=== PATIENT | female | born 1935 | race American Indian/Alaskan Native ===

== ENCOUNTER 2018-03-13 18:49 | Inpatient (IN) | payer MEDICARE, OTHER ==
--- NOTE | 2018-03-13 18:55 | ED PDOC ---
Arrival/HPI - General Chief Complaint: Altered Mental Status Time Seen by Provider: 03/13/18 18:51 Historian: Caregiver, EMS - Critical Care Critical Care Minutes: 60 minutes - History of Present Illness Narrative History of Present Illness (Text): 82 year old male presents to the emergency department after being found to be weak in the upper extremities, difficulty speaking clearly, and right sided facial droop. Patient was found by home health aide at around 6 pm when she arrived on shift According to EMS, the patient with facial droop and weakness. When patient arrived to the emergency department she was found to have weakness in both upper extremities. Her blood sugar was normal in the emergency department. It is unknown when the patient twas found at baseline. She admits to having a non-productive cough and generalized myalgias for the past 24 hours with associated malaise. A more complete HPI was unable to be obtained due to the patient's clinical condition PCP: Dr. [phone] Time/Duration: 1-3 hours Symptom Onset: Sudden Symptom Course: Unchanged Activities at Onset: Rest Context: Home Past Medical History - Provider Review Nursing Documentation Reviewed: Yes RAJNI Report Viewed: No - Travel History Have you recently traveled outside [place] w/in the past 3 mons?: No Family/Social History - Physician Review Nursing Documentation Reviewed: Yes Family/Social History: No Known Family HX Allergies/Home Meds Allergies/Adverse Reactions: Allergies No Known Allergies Allergy (Unverified 03/13/18 18:52) Home Medications: Home Meds Medication Instructions Recorded Confirmed Aspirin [Aspirin EC] 81 mg PO DAILY 03/13/18 03/13/18 Cinacalcet [Sensipar] 30 mg PO DAILY 03/13/18 03/13/18 Clopidogrel [Plavix] 75 mg PO DAILY 03/13/18 03/13/18 GlipiZIDE [Glucotrol] 5 mg PO DAILY 03/13/18 03/13/18 NIFEdipine ER [Nifedipine ER] 60 mg PO DAILY 03/13/18 03/13/18 RX: Cyproheptadine HCl 4 mg PO BID 03/13/18 03/13/18 Tramadol HCl [Ultram] 50 mg PO DAILY 03/13/18 03/13/18 Review of Systems - Review of Systems Systems not reviewed;Unavailable: Acuity of Condition Neurological: Focal Weakness (Upper extremity weakness), Facial Droop (Right sided facial droop), Other (Difficulty speaking clearly. ) Physical Exam Vital Signs Reviewed: Yes Temperature: Febrile Blood Pressure: Normal Pulse: Tachycardic Respiratory Rate: Normal Appearance: Positive for: Well-Appearing, Non-Toxic, Comfortable Pain Distress: None Mental Status: Positive for: Alert and Oriented X 3 - Systems Exam Head: Present: Atraumatic, Normocephalic Pupils: Present: PERRL Extroacular Muscles: Present: EOMI Conjunctiva: Present: Normal Mouth: Present: Moist Mucous Membranes Neck: Present: Normal Range of Motion Respiratory/Chest: Present: Clear to Auscultation, Good Air Exchange. No: Respiratory Distress, Accessory Muscle Use Cardiovascular: Present: Regular Rate and Rhythm, Normal S1, S2. No: Murmurs Abdomen: Present: Normal Bowel Sounds. No: Tenderness, Distention, Peritoneal Signs Back: Present: Normal Inspection Upper Extremity: Present: Normal Inspection, Neurovascularly Intact, Other (Right upper extremity 2/5 . Left upper extremity 3/5). No: Cyanosis, Edema Lower Extremity: Present: Normal Inspection, Neurovascularly Intact, Other (Bilateral lower extremities 5/5. ). No: Edema Neurological: Present: CN II-XII Intact, Motor Func Grossly Intact (Right upper extremity 2/5 . Left upper extremity 3/5. Bilateral lower extremities 5/5. ), Other (Right sided facial droop). No: Speech Normal (slightly dysarthric speech) Skin: Present: Warm, Dry, Normal Color. No: Rashes Psychiatric: Present: Alert, Oriented x 3, Normal Insight, Normal Concentration Medical Decision Making ED Course and Treatment: Impression: An 82 year old female presents to the emergency department for further evaluation after ebing found to have difficulty speaking clearly, upper extremity weakness, and facial droop by her home health aide. NIHSS: 7 Differential Diagnosis included but are not limited to: CVA/ TIA UTI Sepsis PNA Plan: --EKG --Head CT --CTA Head and Neck --Chest X-ray --Urinalysis --Blood Culture --Tylenol --IV Fluids --Neurology Consult -- Reassess and disposition Prior Visits: Notes and results from previous visits were reviewed. Patient was last seen in the emergency department on Progress Notes: 03/13/18 18:51: Code rashawn called. 03/13/18 19:18: CT negative for intracranial hemorrhage. Page placed to Dr. Olivarez (Neurologist alumni relations coordinator). 03/13/18 19:26: Case discussed with Dr. Olivarez who states that patient is NOT a candidate for tPA due to unknown time when last found to be at baseline. She requests the patient get a CTA. Temperature noted to be 101.9F. Attempt to establish vascular access. 03/13/18 22:06 Vascular access obtained via EJ which seems to be positional. Discussed case with Dr. Herrera Lyles(house staff) who accepts patient onto hospitalist service. Endorsed case to surgery resident for central line who will coordinate care with the medical team. 03/13/18 22:[address] Stock(PCP) with answering account service associate given demongraphic details and will call back. - Lab Interpretations Lab Results: 03/13/18 21:17 03/13/18 21:17 Lab Results 03/13/18 21:17: pO2 61 H, VBG pH 7.40, VBG pCO2 58.0, VBG HCO3 35.9 H, VBG Total CO2 37.7 H, VBG O2 Sat (Calc) 94.6 H, VBG Base Excess 9.0 H, VBG Potassium 4.0, Sodium 135.0, Chloride 95.0 L, Glucose 80, Lactate 0.7, FiO2 21.0, Venous Blood Potassium 4.0 03/13/18 21:17: Sodium 135, Chloride 92 L, Potassium 4.2, Carbon Dioxide 35 H, Anion Gap 12, BUN 23 H, Creatinine 3.7 H, Est GFR ( Amer) 14, Est GFR (Non-Af Amer) 12, Random Glucose 87, Calcium 8.8, Total Bilirubin 0.7, AST 34, ALT 28, Alkaline Phosphatase 79, Troponin I 0.08, NT-Pro-B Natriuret Pep 6720 H, Total Protein 9.4 H, Albumin 4.3, Globulin 5.2, Albumin/Globulin Ratio 0.8 L 03/13/18 21:17: PT 12.6 H, INR 1.10, APTT 28.4 03/13/18 21:17: WBC 9.7, RBC 3.22 L, Hgb 9.7 L, Hct 30.7 L, MCV 95.3, MCH 30.1, MCHC 31.6, RDW 16.5 H, Plt Count 261, MPV 9.9, Gran % 72.4 H, Lymph % (Auto) 13.3 L, [place] % (Auto) 12.6 H, Eos % (Auto) 1.5, Baso % (Auto) 0.2, Gran # 7.03 H , Lymph # (Auto) 1.3, [place] # (Auto) 1.2 H, Eos # (Auto) 0.2, Baso # (Auto) 0.02 I have reviewed the lab results: Yes - RAD Interpretation Radiology Orders: 03/13/18 18:53 HEAD W/O (CODE STROKE) [CT] Stat CHEST PORTABLE [RAD] Stat - EKG Interpretation EKG Interpretation (Text): EKG: Ordered, reviewed, and independently interpreted the EKG. Rate : 90 BPM Rhythm : NSR Interpretation : 1st degree AV block. PVCs within AVR and v1- v3. Interpreted by ED Physician: Yes Type: 12 lead EKG - Medication Orders Current Medication Orders: Sodium Chloride (Sodium Chloride 0.9%) 1,000 mls @ 100 mls/hr IV .Q10H [facility] NIHSS Scale (Nicholls) Time Performed: 18:54 - How Severe is the Stoke Baseline Level of Consciousness: 0=Alert LOC to Questions: 1=One correct LOC to commands: 0=Obeys both correctly Best Gaze: 0=Normal Visual: 0=No visual loss Facial: 1=Minor asymmetry Motor Arm - Left: 1=Drift noted before 10 sec Motor Arm - Right: 2=Falls before 10 sec Motor Leg - Left: 0=No drift Motor Leg - Right: 0=No drift Limb Ataxia: 0=Absent Sensory: 0=Normal Best Language: 1=Mild to moderate aphasia Dysarthia: 1=Mild to moderate slurring Extinction & Inattention (Neglect): 0=Normal, no object Score: 7 Risk Level: Mod Stroke Risk rTPA Inclusion/Exclusion - Refusal of Treatment Patient Refused Treatment: No - Inclusion Criteria for Altepase Patient is 18 years or Older: Yes The Clinical Diagnosis of Ischemic Stroke That is Causing a Potentially Disabling Neurological Deficit: No Time of Onset is Well Established to be Less Than 270 Minute Before Treatment Would Begin: Yes Risk/Benefit Discussed With Patient/Family Member Present: Yes - Exclusion Criteria for Altepase Uncontrolled Hypertension at Time of Treatment (Systolic BP above 185 or Diastolic BP above 110 mmHg): No - Warning to TPA With Conditions Following Conditions Weighed Against Anticipated Benefit: Yes Condition: Age Greater Than 75 years Additional Condition (For 3-4.5 Hour Window): Age Greater Than 80 - Scribe Statement The provider has reviewed the documentation as recorded by the Scribe Yocasta Reyes Provider Scribe Attestation: All medical record entries made by the Scribe were at my direction and personally dictated by me. I have reviewed the chart and agree that the record accurately reflects my personal performance of the history, physical exam, medical decision making, and the department course for this patient. I have also personally directed, reviewed, and agree with the discharge instructions and disposition. Disposition/Present on Arrival - Present on Arrival Any Indicators Present on Arrival: No History of DVT/PE: No History of Uncontrolled Diabetes: No Urinary Catheter: No History of Decub. Ulcer: No - Disposition Have Diagnosis and Disposition been Completed?: Yes Diagnosis: Anemia, Upper extremity weakness, Dialysis patient Disposition: HOSPITALIZED Disposition Time: 22:00 Patient Plan: Admission Patient Problems: Current Active Problems Problem Status Onset Anemia Acute Dialysis patient Acute Upper extremity weakness Acute Condition: GUARDED
[2018-03-13] MEDS ORDERED: Sodium Chloride 0.9% 1,000 ML IV SCH (19:00)
[2018-03-13 19:15] VITALS: BMI 29.4
[2018-03-13 21:22] LABS: BASO # 0.02 K/mm3 (0.0-2.0); BASO % 0.2 % (0.0-3.0); EOS # 0.2 (0.0-0.7); EOS % 1.5 % (1.5-5.0); GRAN # 7.03 (1.4-6.5); GRAN % 72.4 % (50.0-68.0); HEMOGLOBIN 9.7 g/dL (12.0-16.0); LYMPH # 1.3 (1.2-3.4); LYMPH % 13.3 % (22.0-35.0); MEAN CELL VOLUME 95.3 fl (80.0-105.0); MEAN CORPUSCULAR HEMOGLOBIN 30.1 pg (25.0-35.0); MEAN CORPUSCULAR HGB CONC 31.6 g/dl (31.0-37.0); MEAN PLATELET VOLUME 9.9 fl (7.0-11.0); MONO # 1.2 (0.1-0.6); MONO % 12.6 % (1.0-6.0); RBC 3.22 10^6/uL (3.5-6.1); RED CELL DISTRIBUTION WIDTH 16.5 % (11.5-14.5); VENOUS BLOOD GAS PO2 61 mm/Hg (30-55); WHITE BLOOD COUNT 9.7 10^3/uL (4.5-11.0)
[2018-03-13 21:31] LABS: INR 1.1; PARTIAL THROMBOPLASTIN TIME 28.4 Seconds (25.1-36.5); PROTHROMBIN TIME 12.6 SECONDS (9.4-12.5)
[2018-03-13 21:32] LABS: ALB/GLOB RATIO 0.8 (1.1-1.8); ALBUMIN 4.3 g/dL (3.0-4.8); CALCIUM 8.8 mg/dL (8.4-10.5)
[2018-03-13 21:44] LABS: TROPONIN I 0.08 ng/mL
[2018-03-13] MEDS ORDERED: Dextrose 50% SYRINGE Inj (50 ml) IV PRN (23:40)
--- NOTE | 2018-03-14 03:17 | CP.PCM.HP ---
History of Present Illness - History of Present Illness History of Present Illness: Nimco Shah, PGY-1, Medicine H&P for Herrera Dickson: CC: Weakness in upper extremity, difficulty speaking, R sided facial droop Pt is an 82 yo F with pmhx of ESRD (HD on ), DM, GERD, HLD, HTN, prior CVA/TIA who presents for weakness in upper extremity, difficulty speaking, R sided facial droop after her HD session. Pt states that this is often the case with her after she has her dialysis sessions, but her home health aid noticed that she began having some weakness, difficulty speaking and R sided facial droop at around 6pm. Pts last known normal was not known and was therefore outside of TPA window. She states that she remembers her home health aide mentioning to her that she was having some weakness in the R upper extremity but she denies noting any weakness. Pt at this time states that she feels better than she did after dialysis and feels that she is stronger. Family was present around the pt and they also noted that the pt is improving and has returned to her baseline prior to ED visit. Pt also admits to a sore throat that started yesterday, but denies sick contacts. At this time she denies fevers, chills, he adache, lightheadedness, dizziness, weakness, chest pain, SOB, palpitations, leg swelling, abd pain, n/v, c/d, numbness, tingling, or dysuria. She admits to having a dry cough and a sore throat. Pmhx: ESRD (HD on ), DM, GERD, HLD, HTN, prior CVA/TIA Pshx: Marly, A/V fistula on R arm All: NKDA Social: Denies any tobacco hx, denies etoh or illicit drug use Fam: Daughter: Breast ca, Daughter: SLE PMD: Dr. Gilbert Pharm: [address] in [place] Present on Admission - Present on Admission Any Indicators Present on Admission: No Review of Systems - Review of Systems Review of Systems: 12 point ROS reviewed and negative except for noted above. Past Patient History - Past Social History Smoking Status: Unknown If Ever Smoked - CARDIAC Hx Hypertension: Yes - PULMONARY Hx Respiratory Disorders: No - RENAL Hx Chronic Kidney Disease: No - ENDOCRINE/METABOLIC Hx Endocrine Disorders: No - HEMATOLOGICAL/ONCOLOGICAL Hx Blood Disorders: No - PSYCHIATRIC Hx Substance Use: No - ANESTHESIA Hx Anesthesia: No Meds Allergies/Adverse Reactions: Allergies Allergy/AdvReac Type Severity Reaction Status Date / Time No Known Allergies Allergy Unverified 03/13/18 18:52 Physical Exam - Constitutional Appears: Non-toxic, No Acute Distress - Head Exam Head Exam: ATRAUMATIC, NORMAL INSPECTION, NORMOCEPHALIC - Eye Exam Eye Exam: EOMI, Normal appearance, PERRL - Neck Exam Neck exam: Negative for: Lymphadenopathy, Meningismus (negative for nuchal rigidity, negative for kernig and brudzinski signs.) - Respiratory Exam Respiratory Exam: Decreased Breath Sounds, NORMAL BREATHING PATTERN. absent: Accessory Muscle Use, Rales, Rhonchi, Wheezes, Respiratory Distress, Stridor - Cardiovascular Exam Cardiovascular Exam: RRR, +S1, +S2, Systolic Murmur ([place] best at R sternal border, crescendo-decrescendo). absent: Gallop, Rubs - GI/Abdominal Exam GI & Abdominal Exam: Normal Bowel Sounds, Soft. absent: Distended, Firm, Guarding, Tenderness - Extremities Exam Extremities exam: Positive for: normal capillary refill, normal inspection, pedal pulses present. Negative for: pedal edema, tenderness - Back Exam Back exam: NORMAL INSPECTION. absent: CVA tenderness (L), CVA tenderness (R) - Neurological Exam Neurological exam: Alert, CN II-XII Intact, Oriented x3 Additional comments: Pt has equal muscle strength 5/5 b/l in both upper and lower extremities. Pt has no noted dysarthria, and no facial asymmetry. No extinction noted on exam. Pt has no focal neurological deficit at this time. - Psychiatric Exam Psychiatric exam: Normal Affect, Normal Mood - Skin Skin Exam: Dry, Normal Color, Warm Results - Vital Signs Recent Vital Signs: Last Vital Signs Temp 101.4 F H 03/13/18 21:45 Pulse 77 03/14/18 00:33 Resp 20 03/14/18 00:33 BP 125/60 03/14/18 00:33 Pulse Ox 96 03/14/18 00:33 - Labs Result Diagrams: 03/14/18 06:30 03/14/18 06:30 Labs: Laboratory Results - last 24 hr 03/13/18 03/13/18 03/13/18 21:17 21:17 21:17 WBC 9.7 RBC 3.22 L Hgb 9.7 L Hct 30.7 L MCV 95.3 MCH 30.1 MCHC 31.6 RDW 16.5 H Plt Count 261 MPV 9.9 Gran % 72.4 H Lymph % (Auto) 13.3 L [place] % (Auto) 12.6 H Eos % (Auto) 1.5 Baso % (Auto) 0.2 Gran # 7.03 H Lymph # (Auto) 1.3 [place] # (Auto) 1.2 H Eos # (Auto) 0.2 Baso # (Auto) 0.02 PT 12.6 H INR 1.10 APTT 28.4 pO2 VBG pH VBG pCO2 VBG HCO3 VBG Total CO2 VBG O2 Sat (Calc) VBG Base Excess VBG Potassium Sodium 135 Chloride 92 L Glucose Lactate FiO2 Potassium 4.2 Carbon Dioxide 35 H Anion Gap 12 BUN 23 H Creatinine 3.7 H Est GFR ( Amer) 14 Est GFR (Non-Af Amer) 12 Random Glucose 87 Calcium 8.8 Total Bilirubin 0.7 AST 34 ALT 28 Alkaline Phosphatase 79 Troponin I 0.08 NT-Pro-B Natriuret Pep 6720 H Total Protein 9.4 H Albumin 4.3 Globulin 5.2 Albumin/Globulin Ratio 0.8 L Venous Blood Potassium 03/13/18 21:17 WBC RBC Hgb Hct MCV MCH MCHC RDW Plt Count MPV Gran % Lymph % (Auto) [place] % (Auto) Eos % (Auto) Baso % (Auto) Gran # Lymph # (Auto) [place] # (Auto) Eos # (Auto) Baso # (Auto) PT INR APTT pO2 61 H VBG pH 7.40 VBG pCO2 58.0 VBG HCO3 35.9 H VBG Total CO2 37.7 H VBG O2 Sat (Calc) 94.6 H VBG Base Excess 9.0 H VBG Potassium 4.0 Sodium 135.0 Chloride 95.0 L Glucose 80 Lactate 0.7 FiO2 21.0 Potassium Carbon Dioxide Anion Gap BUN Creatinine Est GFR ( Amer) Est GFR (Non-Af Amer) Random Glucose Calcium Total Bilirubin AST ALT Alkaline Phosphatase Troponin I NT-Pro-B Natriuret Pep Total Protein Albumin Globulin Albumin/Globulin Ratio Venous Blood Potassium 4.0 Assessment & Plan - Assessment and Plan (Free Text) Assessment: Pt is an 82 yo F with pmhx of ESRD (HD on ), DM, GERD, HLD, HTN, prior CVA who presents for weakness in upper extremity, difficulty speaking, R sided facial droop after her HD session. Pt has no focal neurological deficits, dysarthria on exam and pt has returned to baseline per family. CT head in the ED showed chronic but unchanged ischemia. Pt was also noted to have fever on vitals. Plan: 1. SIRS: - Pt had a fever and elevated HR initially of 90 - Fluids - NS @ 60cc/hr - Vanc - Renally dosed at 15mg/kg. - Rocephin - Blood, urine and sputum cxs - ID consulted 2. TIA vs Stroke: - Pt has returned to baseline per family, and no focal neurologic deficits r emaining on exam - CT head was negative for ischemic or hemorrhagic changes - Lipitor - ASA - lipid profile - Echo - Carotid - Hold Home BP medications - Neurology on board: Dr. Olivarez 3. Hx of DM: - ISS - HbgA1c 4. Hx of ESRD: - Nephrology on board - Dr. Barrett - Dialysis - (last session was today) 5. Hx of HTN: - Hold home BP meds due to stroke vs TIA 6. PPx: - GI: Protonix - DVT: Heparin Pts family would like to be informed before any procedures are done on the pt: - [place]: Case seen and discussed with Herrera Dickson, PGY-1
[2018-03-14] MEDS ORDERED: Sodium Chloride 0.9% 1,000 ML IV SCH (03:30)
[2018-03-14] MEDS: Pantoprazole 40 mg EC Tab PO SCH (05:52)
[2018-03-14 07:22] LABS: BASO # 0.02 K/mm3 (0.0-2.0); BASO % 0.2 % (0.0-3.0); EOS # 0.2 (0.0-0.7); EOS % 1.9 % (1.5-5.0); GRAN # 5.81 (1.4-6.5); GRAN % 69.5 % (50.0-68.0); HEMOGLOBIN 9.1 g/dL (12.0-16.0); LYMPH # 1.3 (1.2-3.4); MEAN CELL VOLUME 97.1 fl (80.0-105.0); MEAN CORPUSCULAR HEMOGLOBIN 29.4 pg (25.0-35.0); MEAN CORPUSCULAR HGB CONC 30.3 g/dl (31.0-37.0); MEAN PLATELET VOLUME 9.6 fl (7.0-11.0); MONO % 12.4 % (1.0-6.0); RBC 3.09 10^6/uL (3.5-6.1); RED CELL DISTRIBUTION WIDTH 16.8 % (11.5-14.5); WHITE BLOOD COUNT 8.4 10^3/uL (4.5-11.0)
--- NOTE | 2018-03-14 07:24 | CP.PCM.CON ---
<Mariajose Vásquez - Last Filed: 03/14/18 13:09> History of Present Illness - History of Present Illness History of Present Illness: PGY-[address] Gilmore ID consult: Fever Ms Solorio, 82F, with PMHx CVA, HTN/HLD, DM, ESRD (HD MWF) C/O weakness in upper extremity, difficulty speaking, R sided facial droop after her HD session. After dialysis on Sunday, pt's home health aid noticed that pt began having R-sided weakness, difficulty speaking and R sided facial droop. Per family, all neurological symptoms resolved and pt is back to baseline prior to ED visit. Code stroke was called. NIHSS [address] head was negative for intracranial hemorrhage. Per neurology, pt is not a candidate for tPA due to unknown time when last found to be at baseline. Temperature noted to be 101.9F. Pt started to feel sore throat with a dry cough after waking up yesterday in the morning. Robitussin help cough but did not help sore throat. Denies sick contacts or recent travels. No animal contact. No recent antibiotic use. Last antibiotic use was for a cough before thanksgi which resolved. ROS - (+) chills (+) dry cough. Pt produce urine at baseline. No change in urinary frequency. Denies fevers, body ache, headache, lightheadedness, dizziness, weakness, chest pain, SOB, palpitations, leg swelling, abd pain, n/v, c/d, numbness, tingling, or dysuria. Pmhx: CVA/TIA HLD/HTN DM ESRD (Dialysis MWF) GERD Pshx: Marly, A/V fistula on R arm FH: Daughter: Breast ca, Daughter: SLE All: NKDA SH: Denies any tobacco hx, denies etoh or illicit drug use. She ambulates with cane/walker at home. Has home health aide Med: See VANESSA PMD: Dr. Gilbert Upon ED arrival, T 101.4, HR 102, BP 110-150, Sa97%RA CBC: WBC 9.7, Hb 9.7, Lactate 0.7 CMP: BUN 23/Cre 3.7 EKG: NSR 90. 1st degree AV block Head CT: Periventricular white matter oschemic changes, chronic. No hemorrhage CXR: No active disease Past Patient History - Past Social History Smoking Status: Unknown If Ever Smoked - CARDIAC Hx Hypertension: Yes - PULMONARY Hx Respiratory Disorders: No - NEUROLOGICAL Hx Neurological Disorder: Yes Hx Transient Ischemic Attacks (TIA): Yes - HEENT Hx HEENT Problems: No - RENAL Hx Chronic Kidney Disease: No - ENDOCRINE/METABOLIC Hx Endocrine Disorders: No - HEMATOLOGICAL/ONCOLOGICAL Hx Blood Disorders: No - INTEGUMENTARY Hx Dermatological Problems: No - MUSCULOSKELETAL/RHEUMATOLOGICAL Hx Musculoskeletal Disorders: Yes Hx Arthritis: Yes Hx Falls: No - GASTROINTESTINAL Hx Gastrointestinal Disorders: Yes Hx Gastroesophageal Reflux: Yes - GENITOURINARY/GYNECOLOGICAL Hx Genitourinary Disorders: No - PSYCHIATRIC Hx Substance Use: No - SURGICAL HISTORY Hx Surgeries: Yes Hx Cholecystectomy: Yes - ANESTHESIA Hx Anesthesia: No Meds Allergies/Adverse Reactions: Allergies Allergy/AdvReac Type Severity Reaction Status Date / Time No Known Allergies Allergy Unverified 03/13/18 18:52 - Medications Medications: Current Medications Aspirin (Ecotrin) 81 mg PO DAILY [facility] Atorvastatin Calcium (Lipitor) 40 mg PO DIN [facility] Dextrose (Dextrose 50% Inj) 0 ml IV STAT PRN; Protocol PRN Reason: Hypoglycemia Protocol Heparin Sodium (Porcine) (Heparin) 5,000 units SC Q12 [facility]; Protocol Dextrose (Dextrose 5% In Water 1000 Ml) 1,000 mls @ 0 mls/hr IV .Q0M PRN; Protocol PRN Reason: Hypoglycemia Protocol Ceftriaxone Sodium (Rocephin 1 Gram Ivpb) 1 gm in 100 mls @ 100 mls/hr IVPB DAILY [facility]; Protocol Vancomycin HCl (Vancomycin 1gm) 1 gm in 250 mls @ 167 mls/hr IVPB DAILY [facility]; Protocol Sodium Chloride (Sodium Chloride 0.9%) 1,000 mls @ 60 mls/hr IV .[id number] [facility] Last Admin: 03/14/18 05:49 Dose: 60 mls/hr Insulin Human Lispro (Humalog Med) 0 units SC ACHS [facility]; Protocol Nifedipine (Procardia Xl) 60 mg PO DAILY [facility] Pantoprazole Sodium (Protonix Ec Tab) 40 mg PO 0600 [facility] Last Admin: 03/14/18 05:52 Dose: 40 mg Physical Exam - Constitutional Appears: No Acute Distress - Head Exam Head Exam: ATRAUMATIC, NORMAL INSPECTION, NORMOCEPHALIC - Eye Exam Eye Exam: EOMI, Normal appearance, PERRL. absent: Scleral icterus Pupil Exam: NORMAL ACCOMODATION - ENT Exam ENT Exam: Mucous Membranes Moist Additional comments: mallampati 4. - Neck Exam Additional comments: supple - Respiratory Exam Respiratory Exam: Decreased Breath Sounds (b/l lung bases), Clear to Auscultation Bilateral, NORMAL BREATHING PATTERN. absent: Rales, Rhonchi, Wheezes - Cardiovascular Exam Cardiovascular Exam: REGULAR RHYTHM, +S1, +S2, Systolic Murmur - GI/Abdominal Exam GI & Abdominal Exam: Normal Bowel Sounds, Soft. absent: Distended, Firm, Guarding, Tenderness Additional comments: No suprapubic tenderness - Extremities Exam Extremities exam: Positive for: normal capillary refill, normal inspection, pedal pulses present. Negative for: calf tenderness, pedal edema - Back Exam Back exam: absent: CVA tenderness (L), CVA tenderness (R) - Neurological Exam Neurological exam: Alert, Oriented x3 - Psychiatric Exam Psychiatric exam: Normal Affect, Normal Mood - Skin Skin Exam: Dry, Warm Results - Vital Signs Recent Vital Signs: Last Vital Signs Temp 98.6 F 03/14/18 06:00 Pulse 74 03/14/18 06:00 Resp 18 03/14/18 06:00 BP 136/67 03/14/18 06:00 Pulse Ox 100 03/14/18 06:00 - Labs Result Diagrams: 03/14/18 06:30 03/14/18 06:30 Labs: Laboratory Results - last 24 hr 03/13/18 03/13/18 03/13/18 21:17 21:17 21:17 WBC 9.7 RBC 3.22 L Hgb 9.7 L Hct 30.7 L MCV 95.3 MCH 30.1 MCHC 31.6 RDW 16.5 H Plt Count 261 MPV 9.9 Gran % 72.4 H Lymph % (Auto) 13.3 L [place] % (Auto) 12.6 H Eos % (Auto) 1.5 Baso % (Auto) 0.2 Gran # 7.03 H Lymph # (Auto) 1.3 [place] # (Auto) 1.2 H Eos # (Auto) 0.2 Baso # (Auto) 0.02 PT 12.6 H INR 1.10 APTT 28.4 pO2 VBG pH VBG pCO2 VBG HCO3 VBG Total CO2 VBG O2 Sat (Calc) VBG Base Excess VBG Potassium Sodium 135 Chloride 92 L Glucose Lactate FiO2 Potassium 4.2 Carbon Dioxide 35 H Anion Gap 12 BUN 23 H Creatinine 3.7 H Est GFR ( Amer) 14 Est GFR (Non-Af Amer) 12 Random Glucose 87 Calcium 8.8 Total Bilirubin 0.7 AST 34 ALT 28 Alkaline Phosphatase 79 Troponin I 0.08 NT-Pro-B Natriuret Pep 6720 H Total Protein 9.4 H Albumin 4.3 Globulin 5.2 Albumin/Globulin Ratio 0.8 L Venous Blood Potassium 03/13/18 03/14/18 21:17 06:30 WBC 8.4 RBC 3.09 L Hgb 9.1 L Hct 30.0 L MCV 97.1 MCH 29.4 MCHC 30.3 L RDW 16.8 H Plt Count 241 MPV 9.6 Gran % 69.5 H Lymph % (Auto) 16.0 L [place] % (Auto) 12.4 H Eos % (Auto) 1.9 Baso % (Auto) 0.2 Gran # 5.81 Lymph # (Auto) 1.3 [place] # (Auto) 1.0 H Eos # (Auto) 0.2 Baso # (Auto) 0.02 PT INR APTT pO2 61 H VBG pH 7.40 VBG pCO2 58.0 VBG HCO3 35.9 H VBG Total CO2 37.7 H VBG O2 Sat (Calc) 94.6 H VBG Base Excess 9.0 H VBG Potassium 4.0 Sodium 135.0 Chloride 95.0 L Glucose 80 Lactate 0.7 FiO2 21.0 Potassium Carbon Dioxide Anion Gap BUN Creatinine Est GFR ( Amer) Est GFR (Non-Af Amer) Random Glucose Calcium Total Bilirubin AST ALT Alkaline Phosphatase Troponin I NT-Pro-B Natriuret Pep Total Protein Albumin Globulin Albumin/Globulin Ratio Venous Blood Potassium 4.0 Assessment & Plan - Assessment and Plan (Free Text) Plan: Ms Solorio, 82F, with PMHx CVA, HTN/HLD, DM, ESRD (HD MWF) C/O weakness in upper extremity, difficulty speaking, R sided facial droop after her HD session. Her temperature noted to be 101.9F and HR 102 with sore throat, dry cough x 1 day. A: Possible influenza due to high specificity from symptoms during flu endemic Sepsis (2/4) with possible flu infection questionable community acquired pneumonia, 2 points on curb-63 for age and ESRD P: - Oseltamivir renal dose: 30mg x 1. Then 30mg daily x 5 days. On dialysis day, give it after dialysis. - airborne precaution - cepacol lozenges PRN for sore throat, tylenol prn for fever - follow on CXR 2 view, procalcitonin, blood, sputum, urine culture - observe off antibiotics for now - Unlikely bacterial infection, no sputum, no leukopenia/leukocytosis, CXR negative for consolidaion Imaging/Lab - EKG: NSR 90. 1st degree AV block - Head CT: Periventricular white matter oschemic changes, chronic. No hemorrhage - CXR: No active disease - Flu screen negative. s/r/d/w Dr. Gilmore <Kris Gilmore S - Last Filed: 03/14/18 15:24> Meds - Medications Medications: Current Medications Aspirin (Ecotrin) 81 mg PO DAILY [facility] Last Admin: 03/14/18 10:30 Dose: 81 mg Atorvastatin Calcium (Lipitor) 40 mg PO DIN [facility] Cinacalcet (Sensipar) 30 mg PO DAILY [facility] Darbepoetin Chencho (Aranesp) 40 mcg IVP QWK [facility] Dextrose (Dextrose 50% Inj) 0 ml IV STAT PRN; Protocol PRN Reason: Hypoglycemia Protocol Heparin Sodium (Porcine) (Heparin) 5,000 units SC Q12 [facility]; Protocol Last Admin: 03/14/18 10:36 Dose: Not Given Heparin Sodium (Porcine) (Heparin) 2,000 units IVP MWF [facility]; Protocol Dextrose (Dextrose 5% In Water 1000 Ml) 1,000 mls @ 0 mls/hr IV .Q0M PRN; Protocol PRN Reason: Hypoglycemia Protocol Insulin Human Lispro (Humalog Med) 0 units SC ACHS [facility]; Protocol Last Admin: 03/14/18 12:57 Dose: Not Given Losartan Potassium (Cozaar) 25 mg PO QPM [facility] Nifedipine (Procardia Xl) 60 mg PO DAILY [facility] Oseltamivir Phosphate (Tamiflu Cap) 30 mg PO DAILY [facility]; Protocol Last Admin: 03/14/18 10:30 Dose: 30 mg Pantoprazole Sodium (Protonix Ec Tab) 40 mg PO 0600 [facility] Last Admin: 03/14/18 05:52 Dose: 40 mg Vitamin B Complex/Vit C/Folic Acid (Nephro-Geno) 1 tab PO 0800 [facility] Results - Vital Signs Recent Vital Signs: Last Vital Signs Temp 98 F 03/14/18 12:00 Pulse 73 03/14/18 14:00 Resp 20 03/14/18 12:00 BP 126/62 03/14/18 14:00 Pulse Ox 100 03/14/18 06:00 - Labs Result Diagrams: 03/14/18 06:30 03/14/18 06:30 Labs: Laboratory Results - last 24 hr 03/13/18 03/13/18 03/13/18 21:10 21:17 21:17 WBC 9.7 RBC 3.22 L Hgb 9.7 L Hct 30.7 L MCV 95.3 MCH 30.1 MCHC 31.6 RDW 16.5 H Plt Count 261 MPV 9.9 Gran % 72.4 H Lymph % (Auto) 13.3 L [place] % (Auto) 12.6 H Eos % (Auto) 1.5 Baso % (Auto) 0.2 Gran # 7.03 H Lymph # (Auto) 1.3 [place] # (Auto) 1.2 H Eos # (Auto) 0.2 Baso # (Auto) 0.02 PT 12.6 H INR 1.10 APTT 28.4 pO2 VBG pH VBG pCO2 VBG HCO3 VBG Total CO2 VBG O2 Sat (Calc) VBG Base Excess VBG Potassium Sodium Chloride Glucose Lactate FiO2 Potassium Carbon Dioxide Anion Gap BUN Creatinine Est GFR ( Amer) Est GFR (Non-Af Amer) POC Glucose (mg/dL) Random Glucose Hemoglobin A1c Calcium Total Bilirubin AST ALT Alkaline Phosphatase Troponin I NT-Pro-B Natriuret Pep Total Protein Albumin Globulin Albumin/Globulin Ratio Triglycerides Cholesterol LDL Cholesterol Direct HDL Cholesterol Procalcitonin 0.51 H Venous Blood Potassium Influenza Typ A,B (EIA) Blood Type Antibody Screen Antibody Identification Antigen Identification BBK History Checked 03/13/18 03/13/18 03/14/18 21:17 21:17 06:25 WBC RBC Hgb Hct MCV MCH MCHC RDW Plt Count MPV Gran % Lymph % (Auto) [place] % (Auto) Eos % (Auto) Baso % (Auto) Gran # Lymph # (Auto) [place] # (Auto) Eos # (Auto) Baso # (Auto) PT INR APTT pO2 61 H VBG pH 7.40 VBG pCO2 58.0 VBG HCO3 35.9 H VBG Total CO2 37.7 H VBG O2 Sat (Calc) 94.6 H VBG Base Excess 9.0 H VBG Potassium 4.0 Sodium 135 135.0 Chloride 92 L 95.0 L Glucose 80 Lactate 0.7 FiO2 21.0 Potassium 4.2 Carbon Dioxide 35 H Anion Gap 12 BUN 23 H Creatinine 3.7 H Est GFR ( Amer) 14 Est GFR (Non-Af Amer) 12 POC Glucose (mg/dL) Random Glucose 87 Hemoglobin A1c Calcium 8.8 Total Bilirubin 0.7 AST 34 ALT 28 Alkaline Phosphatase 79 Troponin I 0.08 NT-Pro-B Natriuret Pep 6720 H Total Protein 9.4 H Albumin 4.3 Globulin 5.2 Albumin/Globulin Ratio 0.8 L Triglycerides Cholesterol LDL Cholesterol Direct HDL Cholesterol Procalcitonin Venous Blood Potassium 4.0 Influenza Typ A,B (EIA) Blood Type B POSITIVE Antibody Screen Positive Antibody Identification Anti K Antigen Identification K Antigen - NEGATIVE BBK History Checked No verified bt 03/14/18 03/14/18 03/14/18 06:30 06:30 06:30 WBC 8.4 RBC 3.09 L Hgb 9.1 L Hct 30.0 L MCV 97.1 MCH 29.4 MCHC 30.3 L RDW 16.8 H Plt Count 241 MPV 9.6 Gran % 69.5 H Lymph % (Auto) 16.0 L [place] % (Auto) 12.4 H Eos % (Auto) 1.9 Baso % (Auto) 0.2 Gran # 5.81 Lymph # (Auto) 1.3 [place] # (Auto) 1.0 H Eos # (Auto) 0.2 Baso # (Auto) 0.02 PT INR APTT pO2 VBG pH VBG pCO2 VBG HCO3 VBG Total CO2 VBG O2 Sat (Calc) VBG Base Excess VBG Potassium Sodium 133 Chloride 94 L Glucose Lactate FiO2 Potassium 4.3 Carbon Dioxide 32 Anion Gap 13 BUN 29 H Creatinine 4.5 H Est GFR ( Amer) 11 Est GFR (Non-Af Amer) 9 POC Glucose (mg/dL) Random Glucose 71 Hemoglobin A1c 5.1 Calcium 8.4 Total Bilirubin 0.7 AST 35 ALT 22 Alkaline Phosphatase 71 Troponin I NT-Pro-B Natriuret Pep Total Protein 8.7 H Albumin 3.9 Globulin 4.8 Albumin/Globulin Ratio 0.8 L Triglycerides 90 Cholesterol 246 H LDL Cholesterol Direct 158 H HDL Cholesterol 34 Procalcitonin Venous Blood Potassium Influenza Typ A,B (EIA) Blood Type Antibody Screen Antibody Identification Antigen Identification BBK History Checked 03/14/18 03/14/18 03/14/18 09:23 09:31 10:17 WBC RBC Hgb Hct MCV MCH MCHC RDW Plt Count MPV Gran % Lymph % (Auto) [place] % (Auto) Eos % (Auto) Baso % (Auto) Gran # Lymph # (Auto) [place] # (Auto) Eos # (Auto) Baso # (Auto) PT INR APTT pO2 VBG pH VBG pCO2 VBG HCO3 VBG Total CO2 VBG O2 Sat (Calc) VBG Base Excess VBG Potassium Sodium Chloride Glucose Lactate FiO2 Potassium Carbon Dioxide Anion Gap BUN Creatinine Est GFR ( Amer) Est GFR (Non-Af Amer) POC Glucose (mg/dL) 55 L 98 Random Glucose Hemoglobin A1c Calcium Total Bilirubin AST ALT Alkaline Phosphatase Troponin I NT-Pro-B Natriuret Pep Total Protein Albumin Globulin Albumin/Globulin Ratio Triglycerides Cholesterol LDL Cholesterol Direct HDL Cholesterol Procalcitonin Venous Blood Potassium Influenza Typ A,B (EIA) Negative for flu a/b Blood Type Antibody Screen Antibody Identification Antigen Identification BBK History Checked Assessment & Plan - Assessment and Plan (Free Text) Plan: Infectious diseases Attending Physician Attestation Patient seen and examined, discussed with program medical director. I have reviewed the patient's history of present illness, past medical, social, personal and family histories, pertinent physical exam findings, course so far in this hospital admission, pertinent laboratory and imaging results. I agree with the above findings, assessment and plan. In addition, consider sepsis due to systemic viral illness like Influenza. We have started Tamiflu. Will get CXR PA-L, PCT, cultures and give further recommendations based on results of these tests.
[2018-03-14 07:38] LABS: ALB/GLOB RATIO 0.8 (1.1-1.8); ALBUMIN 3.9 g/dL (3.0-4.8); CALCIUM 8.4 mg/dL (8.4-10.5)
--- NOTE | 2018-03-14 08:19 | CT ---
Date of service: 03/13/2018 PROCEDURE: CT HEAD WITHOUT CONTRAST. HISTORY: Code Stroke COMPARISON: None available. TECHNIQUE: Axial computed tomography images were obtained through the head/brain without intravenous contrast. Radiation dose: Total exam DLP = 1172.69 mGy-cm. This CT exam was performed using one or more of the following dose reduction techniques: Automated exposure control, adjustment of the mA and/or kV according to patient size, and/or use of iterative reconstruction technique. FINDINGS: HEMORRHAGE: No intracranial hemorrhage. BRAIN: No mass effect or edema. Atrophy and extensive chronic periventricular white matter ischemic disease. VENTRICLES: Unremarkable. No hydrocephalus. CALVARIUM: Unremarkable. PARANASAL SINUSES: Unremarkable as visualized. No significant inflammatory changes. MASTOID AIR CELLS: Unremarkable as visualized. No inflammatory changes. OTHER FINDINGS: None. IMPRESSION: No acute hemorrhage.
--- NOTE | 2018-03-14 09:27 | RAD ---
Date of service: 03/13/2018 HISTORY: Code Stroke COMPARISON: No prior. FINDINGS: LUNGS: Linear atelectasis at the right lung base PLEURA: No significant pleural effusion identified, no pneumothorax apparent. CARDIOVASCULAR: Aortic calcification Moderate cardiomegaly no pulmonary vascular congestion. OSSEOUS STRUCTURES: No significant abnormalities. VISUALIZED UPPER ABDOMEN: Normal. OTHER FINDINGS: None. IMPRESSION: No active disease.
[2018-03-14] MEDS: Insulin Lispro (humaLOG) MEDIUM Coverage SC SCH ×4 (09:35→21:51)
[2018-03-14] MEDS ORDERED: Vancomycin 1gm in NS 250ml 1 GM/250 ML BAG IVPB SCH (10:00)
[2018-03-14] MEDS ORDERED: cefTRIAXone 1 gm 1 GM/100 ML BAG IVPB SCH (10:00)
[2018-03-14] MEDS ORDERED: Iohexol 350 MG/100 ML VIAL ONE ×2 (11:20→12:14)
--- NOTE | 2018-03-14 14:35 | CP.PCM.CON ---
History of Present Illness - History of Present Illness History of Present Illness: Nephrology Consultation Note: Assessment: Stable SIRS ? source TIA Diabetic chronic Kidney Disease (E11.22) Hypertensive Chronic Kidney Disease (I12.0) End stage renal disease (N18.6) dependence on hemodialysis (Z99.2) (MWF) via AVF Anemia (D64.9), Hyperphosphatemia (E83.39), Secondary Hyperparathyroidism (E21.1), HTN (I12.0) Plan: No acute need for dialysis today. Will plan for dialysis tomorrow. Continue with Nephrovite 1 tab/day. PRBC as needed for anemia. on SERGE with dialysis as last Hb 9.1 Continue with phos binders. check phos level in am resume sensipar 30 mg/d BP control with meds as ordered. Patient not on RAAS marino hence will add low dose Glycemic control, Dialysis consistent diet Further work up/management as per primary team Dose meds/antibiotics (if needed) for ESRD status. Avoid fleets enema/magnesium based laxatives. SIRS and neuro work up ongoing Thanks for allowing me to participate in care of your patient. Will follow patient with you. Please call if any Qs Dr Sánchez Brown Office: [phone] Chief Complaint; weakness and fever HPI: Pt is an 82 y/o F with hx of ESRD (HD on ) via AVF @ [facility], [place], DM, GERD, Hyperlipidemia, HTN, prior CVA/TIA who presented for weakness in upper extremity, difficulty speaking, R sided facial droop. she had last dialysis yesterday. pt also noted to have fever and being treated for influenza empirically. Renal consult requested for ESRD management. she feels better at this time and looking forward to go home soon. ROS: Cardiovascular: No chest pain. Pulmonary: No shortness of breath . has cough today Gastrointestinal: denies abdominal pain No nausea. No vomiting. Genitourinary: mild pain while urinating. Denies blood in urine. All other negative except as mentioned in HPI Physical Examination: General Appearance: Comfortable, in no acute respiratory distress, co-operative . Vitals reviewed and noted as below Head; Atraumatic, normocephalic ENT: no ulcers no thrush. Tongue is midline. Oropharynx: no rash or ulcers. EYES: Pupils are equal, round and reactive to light accommodation. Eye muscles and extraocular movement intact. Sclera is anicteric. Neck; supple no lymphadenopathy, no thyromegaly or bruit Lungs: Normal respiratory rate/effort. Breath sounds bilateral equal and clear Heart: Normal rate. s1s2 normal. No rub or gallop. Extremities: no edema. No varicose veins Neurological: Patient is alert, awake and oriented to person, place and time. No focal deficit. Strength bilateral appropriate and equal Skin: Warm and dry. Normal turgor. No rash. Palpitation: Normal elasticity for age Abdomen: Abdomen is soft. Bowel sounds +. There is no abdominal tenderness, no guarding/rigidity or organomegaly Psych: normal insight and normal affect/mood MSK: no joint tenderness or swelling. Digits and nails normal, no deformity : kidney or bladder not palpable Access: AVF with thrill and bruit Labs/imaging reviewed. Past medical history, past surgical history, family history, social history, allergy reviewed and noted as below Family Hx: no hx of CKD. Non contributory Past Patient History - Past Social History Smoking Status: Unknown If Ever Smoked - CARDIAC Hx Hypertension: Yes - PULMONARY Hx Respiratory Disorders: No - NEUROLOGICAL Hx Neurological Disorder: Yes Hx Transient Ischemic Attacks (TIA): Yes - HEENT Hx HEENT Problems: No - RENAL Hx Chronic Kidney Disease: No - ENDOCRINE/METABOLIC Hx Endocrine Disorders: No - HEMATOLOGICAL/ONCOLOGICAL Hx Blood Disorders: No - INTEGUMENTARY Hx Dermatological Problems: No - MUSCULOSKELETAL/RHEUMATOLOGICAL Hx Musculoskeletal Disorders: Yes Hx Arthritis: Yes Hx Falls: No - GASTROINTESTINAL Hx Gastrointestinal Disorders: Yes Hx Gastroesophageal Reflux: Yes - GENITOURINARY/GYNECOLOGICAL Hx Genitourinary Disorders: No - PSYCHIATRIC Hx Substance Use: No - SURGICAL HISTORY Hx Surgeries: Yes Hx Cholecystectomy: Yes - ANESTHESIA Hx Anesthesia: No Meds Allergies/Adverse Reactions: Allergies Allergy/AdvReac Type Severity Reaction Status Date / Time No Known Allergies Allergy Unverified 03/13/18 18:52 - Medications Medications: Current Medications Aspirin (Ecotrin) 81 mg PO DAILY [facility] Last Admin: 03/14/18 10:30 Dose: 81 mg Atorvastatin Calcium (Lipitor) 40 mg PO DIN [facility] Dextrose (Dextrose 50% Inj) 0 ml IV STAT PRN; Protocol PRN Reason: Hypoglycemia Protocol Heparin Sodium (Porcine) (Heparin) 5,000 units SC Q12 [facility]; Protocol Last Admin: 03/14/18 10:36 Dose: Not Given Heparin Sodium (Porcine) (Heparin) 2,000 units IVP MWF [facility]; Protocol Dextrose (Dextrose 5% In Water 1000 Ml) 1,000 mls @ 0 mls/hr IV .Q0M PRN; Protocol PRN Reason: Hypoglycemia Protocol Insulin Human Lispro (Humalog Med) 0 units SC ACHS [facility]; Protocol Last Admin: 03/14/18 12:57 Dose: Not Given Nifedipine (Procardia Xl) 60 mg PO DAILY [facility] Oseltamivir Phosphate (Tamiflu Cap) 30 mg PO DAILY [facility]; Protocol Last Admin: 03/14/18 10:30 Dose: 30 mg Pantoprazole Sodium (Protonix Ec Tab) 40 mg PO 0600 [facility] Last Admin: 03/14/18 05:52 Dose: 40 mg Vitamin B Complex/Vit C/Folic Acid (Nephro-Geno) 1 tab PO 0800 [facility] Results - Vital Signs Recent Vital Signs: Last Vital Signs Temp 98 F 03/14/18 12:00 Pulse 77 03/14/18 12:00 Resp 20 03/14/18 12:00 BP 181/67 H 03/14/18 12:00 Pulse Ox 100 03/14/18 06:00 - Labs Result Diagrams: 03/14/18 06:30 03/14/18 06:30 Labs: Laboratory Results - last 24 hr 03/13/18 03/13/18 03/13/18 21:10 21:17 21:17 WBC 9.7 RBC 3.22 L Hgb 9.7 L Hct 30.7 L MCV 95.3 MCH 30.1 MCHC 31.6 RDW 16.5 H Plt Count 261 MPV 9.9 Gran % 72.4 H Lymph % (Auto) 13.3 L Linn % (Auto) 12.6 H Eos % (Auto) 1.5 Baso % (Auto) 0.2 Gran # 7.03 H Lymph # (Auto) 1.3 Linn # (Auto) 1.2 H Eos # (Auto) 0.2 Baso # (Auto) 0.02 PT 12.6 H INR 1.10 APTT 28.4 pO2 VBG pH VBG pCO2 VBG HCO3 VBG Total CO2 VBG O2 Sat (Calc) VBG Base Excess VBG Potassium Sodium Chloride Glucose Lactate FiO2 Potassium Carbon Dioxide Anion Gap BUN Creatinine Est GFR ( Amer) Est GFR (Non-Af Amer) POC Glucose (mg/dL) Random Glucose Hemoglobin A1c Calcium Total Bilirubin AST ALT Alkaline Phosphatase Troponin I NT-Pro-B Natriuret Pep Total Protein Albumin Globulin Albumin/Globulin Ratio Triglycerides Cholesterol LDL Cholesterol Direct HDL Cholesterol Procalcitonin 0.51 H Venous Blood Potassium Influenza Typ A,B (EIA) Blood Type Antibody Screen Antibody Identification Antigen Identification BBK History Checked 03/13/18 03/13/18 03/14/18 21:17 21:17 06:25 WBC RBC Hgb Hct MCV MCH MCHC RDW Plt Count MPV Gran % Lymph % (Auto) Linn % (Auto) Eos % (Auto) Baso % (Auto) Gran # Lymph # (Auto) Linn # (Auto) Eos # (Auto) Baso # (Auto) PT INR APTT pO2 61 H VBG pH 7.40 VBG pCO2 58.0 VBG HCO3 35.9 H VBG Total CO2 37.7 H VBG O2 Sat (Calc) 94.6 H VBG Base Excess 9.0 H VBG Potassium 4.0 Sodium 135 135.0 Chloride 92 L 95.0 L Glucose 80 Lactate 0.7 FiO2 21.0 Potassium 4.2 Carbon Dioxide 35 H Anion Gap 12 BUN 23 H Creatinine 3.7 H Est GFR ( Amer) 14 Est GFR (Non-Af Amer) 12 POC Glucose (mg/dL) Random Glucose 87 Hemoglobin A1c Calcium 8.8 Total Bilirubin 0.7 AST 34 ALT 28 Alkaline Phosphatase 79 Troponin I 0.08 NT-Pro-B Natriuret Pep 6720 H Total Protein 9.4 H Albumin 4.3 Globulin 5.2 Albumin/Globulin Ratio 0.8 L Triglycerides Cholesterol LDL Cholesterol Direct HDL Cholesterol Procalcitonin Venous Blood Potassium 4.0 Influenza Typ A,B (EIA) Blood Type B POSITIVE Antibody Screen Positive Antibody Identification Anti K Antigen Identification K Antigen - NEGATIVE BBK History Checked No verified bt 03/14/18 03/14/18 03/14/18 06:30 06:30 06:30 WBC 8.4 RBC 3.09 L Hgb 9.1 L Hct 30.0 L MCV 97.1 MCH 29.4 MCHC 30.3 L RDW 16.8 H Plt Count 241 MPV 9.6 Gran % 69.5 H Lymph % (Auto) 16.0 L Linn % (Auto) 12.4 H Eos % (Auto) 1.9 Baso % (Auto) 0.2 Gran # 5.81 Lymph # (Auto) 1.3 Linn # (Auto) 1.0 H Eos # (Auto) 0.2 Baso # (Auto) 0.02 PT INR APTT pO2 VBG pH VBG pCO2 VBG HCO3 VBG Total CO2 VBG O2 Sat (Calc) VBG Base Excess VBG Potassium Sodium 133 Chloride 94 L Glucose Lactate FiO2 Potassium 4.3 Carbon Dioxide 32 Anion Gap 13 BUN 29 H Creatinine 4.5 H Est GFR ( Amer) 11 Est GFR (Non-Af Amer) 9 POC Glucose (mg/dL) Random Glucose 71 Hemoglobin A1c 5.1 Calcium 8.4 Total Bilirubin 0.7 AST 35 ALT 22 Alkaline Phosphatase 71 Troponin I NT-Pro-B Natriuret Pep Total Protein 8.7 H Albumin 3.9 Globulin 4.8 Albumin/Globulin Ratio 0.8 L Triglycerides 90 Cholesterol 246 H LDL Cholesterol Direct 158 H HDL Cholesterol 34 Procalcitonin Venous Blood Potassium Influenza Typ A,B (EIA) Blood Type Antibody Screen Antibody Identification Antigen Identification BBK History Checked 03/14/18 03/14/18 03/14/18 09:23 09:31 10:17 WBC RBC Hgb Hct MCV MCH MCHC RDW Plt Count MPV Gran % Lymph % (Auto) Linn % (Auto) Eos % (Auto) Baso % (Auto) Gran # Lymph # (Auto) Linn # (Auto) Eos # (Auto) Baso # (Auto) PT INR APTT pO2 VBG pH VBG pCO2 VBG HCO3 VBG Total CO2 VBG O2 Sat (Calc) VBG Base Excess VBG Potassium Sodium Chloride Glucose Lactate FiO2 Potassium Carbon Dioxide Anion Gap BUN Creatinine Est GFR ( Amer) Est GFR (Non-Af Amer) POC Glucose (mg/dL) 55 L 98 Random Glucose Hemoglobin A1c Calcium Total Bilirubin AST ALT Alkaline Phosphatase Troponin I NT-Pro-B Natriuret Pep Total Protein Albumin Globulin Albumin/Globulin Ratio Triglycerides Cholesterol LDL Cholesterol Direct HDL Cholesterol Procalcitonin Venous Blood Potassium Influenza Typ A,B (EIA) Negative for flu a/b Blood Type Antibody Screen Antibody Identification Antigen Identification BBK History Checked
--- NOTE | 2018-03-14 14:39 | CP.PCM.APN ---
Subjective - Date & Time of Evaluation Date of Evaluation: 03/14/18 Time of Evaluation: 09:50 - Subjective Subjective: Pt. seen and examined at bedside. Is currently able to move right upper extremity, noted to have strong hand grasp to right hand, is able to speak in full sentences, with no difficulty noted. Has good strength and ROM to right and left lower extremities. Patient does complain of cough, sore throat, and states gets little short of breath, when walking. Review of Systems - Constitutional Constitutional: As Per HPI - EENT Eyes: As Per HPI Ears: As Per HPI Nose/Mouth/Throat: As Per HPI - Breasts Breasts: As Per HPI - Cardiovascular Cardiovascular: As Per HPI - Respiratory Respiratory: As Per HPI - Gastrointestinal Gastrointestinal: As Per HPI - Genitourinary Genitourinary: As Per HPI - Musculoskeletal Musculoskeletal: Muscle Weakness - Neurological Neurological: As Per HPI - Hematologic/Lymphatic Hematologic: As Per HPI Objective - Vital Signs/Intake and Output Vital Signs (last 24 hours): Temp Pulse Resp BP Pulse Ox 98 F 77 20 181/67 H 100 03/14/18 12:00 03/14/18 12:00 03/14/18 12:00 03/14/18 12:00 03/14/18 06:00 - Medications Medications: Current Medications Aspirin (Ecotrin) 81 mg PO DAILY [facility] Last Admin: 03/14/18 10:30 Dose: 81 mg Atorvastatin Calcium (Lipitor) 40 mg PO DIN [facility] Cinacalcet (Sensipar) 30 mg PO DAILY [facility] Darbepoetin [place] (Aranesp) 40 mcg IVP QWK [facility] Dextrose (Dextrose 50% Inj) 0 ml IV STAT PRN; Protocol PRN Reason: Hypoglycemia Protocol Heparin Sodium (Porcine) (Heparin) 5,000 units SC Q12 [facility]; Protocol Last Admin: 03/14/18 10:36 Dose: Not Given Heparin Sodium (Porcine) (Heparin) 2,000 units IVP MWF [facility]; Protocol Dextrose (Dextrose 5% In Water 1000 Ml) 1,000 mls @ 0 mls/hr IV .Q0M PRN; Protocol PRN Reason: Hypoglycemia Protocol Insulin Human Lispro (Humalog Med) 0 units SC ACHS [facility]; Protocol Last Admin: 03/14/18 12:57 Dose: Not Given Losartan Potassium (Cozaar) 25 mg PO QPM [facility] Nifedipine (Procardia Xl) 60 mg PO DAILY [facility] Oseltamivir Phosphate (Tamiflu Cap) 30 mg PO DAILY [facility]; Protocol Last Admin: 03/14/18 10:30 Dose: 30 mg Pantoprazole Sodium (Protonix Ec Tab) 40 mg PO 0600 [facility] Last Admin: 03/14/18 05:52 Dose: 40 mg Vitamin B Complex/Vit C/Folic Acid (Nephro-Geno) 1 tab PO 0800 [facility] - Labs Labs: 03/14/18 06:30 03/14/18 06:30 PT 12.6 SECONDS (9.4-12.5) H 03/13/18 21:17 INR 1.10 03/13/18 21:17 APTT 28.4 Seconds (25.1-36.5) 03/13/18 21:17 - Constitutional Appears: Well, Non-toxic - Head Exam Head Exam: NORMAL INSPECTION, NORMOCEPHALIC - Eye Exam Eye Exam: Normal appearance Pupil Exam: NORMAL ACCOMODATION - ENT Exam ENT Exam: Mucous Membranes Moist, Normal Exam - Neck Exam Neck Exam: Full ROM - Respiratory Exam Respiratory Exam: Clear to Ausculation Bilateral, NORMAL BREATHING PATTERN - Cardiovascular Exam Cardiovascular Exam: REGULAR RHYTHM, +S1, +S2 - GI/Abdominal Exam GI & Abdominal Exam: Soft, Normal Bowel Sounds - Rectal Exam Rectal Exam: Deferred - Extremities Exam Extremities Exam: Full ROM - Back Exam Back Exam: NORMAL INSPECTION - Neurological Exam Neurological Exam: Alert, Awake, Oriented x3 - Psychiatric Exam Psychiatric exam: Normal Affect - Skin Skin Exam: Dry, Intact Assessment and Plan - Assessment and Plan (Free Text) Assessment: Pt is an 82 yo F with pmhx of ESRD (HD on ), DM, GERD, HLD, HTN, prior CVA who presents for weakness in upper extremity, difficulty speaking, R sided facial droop after her HD session. Pt has no focal neurological deficits, dysarthria on exam and pt has returned to baseline per family. CT head in the ED showed chronic but unchanged ischemia. Pt was also noted to have fever of 101.9 in the E.D. , admitted with TIA and fever. Plan: 1. SIRS: - Pt had a fever and elevated HR initially of 90 - Fluids - NS @ 60cc/hr - Vanc - Renally dosed at 15mg/kg. - Rocephin - Blood, urine and sputum cxs results pending. - ID evaluated, treating for FLU, symptoms of Flu, continue TAmiflu as per I.D. 2. TIA vs Stroke: - Pt has returned to baseline per family, and no focal neurologic deficits remaining on exam - CT head was negative for ischemic or hemorrhagic changes - Lipitor - ASA - lipid profile - Echo - Carotid - Hold Home BP medications - Neurology on board: Dr. Olivarez, recommends repeat Head CT and MRI ordered. PT eval pending. continue to monitor clinical status and follow closely. SW/CM for DC planning,
--- NOTE | 2018-03-14 14:56 | US ---
PROCEDURE: Bilateral carotid artery duplex ultrasound HISTORY: Carotid stenosis CVA PHYSICIAN(S): Montana Montiel MD. TECHNIQUE: Duplex sonography and color-flow Doppler were used to evaluate the carotid bifurcations and limited segments of the vertebral arteries bilaterally. The exam is limited by body habitus, tortuous vessels, and the patient's inability to cooperate FINDINGS: There is moderate smooth heterogeneous plaque noted at the carotid bifurcations bilaterally. The peak systolic velocity in the proximal right internal carotid artery is 118 cm/sec. This corresponds to a 40-59 percent proximal right ICA stenosis. Normal systolic velocities are noted in the proximal right external carotid artery. There is antegrade flow in the right vertebral artery. The peak systolic velocity in the proximal left internal carotid artery is 104 cm/sec. This corresponds to a 20 to 39% proximal left ICA stenosis. Mildly elevated systolic velocities are noted in the proximal left external carotid artery. There is antegrade flow in the left vertebral artery. IMPRESSION: 1. 40-59 percent proximal right ICA stenosis 2. 20-39 percent proximal left ICA stenosis 3. Antegrade flow in both vertebral arteries
--- NOTE | 2018-03-14 15:55 | CP.PCM.CON ---
<Christian Driscoll - Last Filed: 03/15/18 12:35> History of Present Illness - History of Present Illness History of Present Illness: Pt is an 82 yo F with pmhx of ESRD (HD on ), DM, GERD, HLD, HTN, prior CVA/TIA who presents for weakness in upper extremity, difficulty speaking, R sided facial droop after her HD session which was observed by health aide worker, EMS, and emergency department staff. As per patient her right sided facial droop is her baseline from her previous stroke. Patient states she felt tired after dialysis but this is baseline for her. Patient endorses cough, con gestion, and sore throat in the past few days. States she never had any new facial droop or weakness. Pmhx: ESRD (HD on ), DM, GERD, HLD, HTN, prior CVA/TIA Pshx: Marly, A/V fistula on R arm All: NKDA Social: Denies any tobacco hx, denies etoh or illicit drug use Fam: Daughter: Breast ca, Daughter: SLE PMD: Dr. Gilbert Pharm: [address] in [place] Review of Systems - Constitutional Constitutional: absent: Chills, Fever - EENT Eyes: absent: Change in Vision - Cardiovascular Cardiovascular: absent: Chest Pain, Dyspnea - Respiratory Respiratory: Cough, Chest Congestion, Excessive Mucous Production - Gastrointestinal Gastrointestinal: absent: Abdominal Pain, Diarrhea, Nausea - Genitourinary Genitourinary: absent: Dysuria - Neurological Neurological: absent: Confusion, Dizziness, Numbness, Focal Weakness, Memory Loss - Psychiatric Psychiatric: absent: Anxiety Past Patient History - Past Social History Smoking Status: Unknown If Ever Smoked - CARDIAC Hx Hypertension: Yes - PULMONARY Hx Respiratory Disorders: No - NEUROLOGICAL Hx Neurological Disorder: Yes Hx Transient Ischemic Attacks (TIA): Yes - HEENT Hx HEENT Problems: No - RENAL Hx Chronic Kidney Disease: No - ENDOCRINE/METABOLIC Hx Endocrine Disorders: No - HEMATOLOGICAL/ONCOLOGICAL Hx Blood Disorders: No - INTEGUMENTARY Hx Dermatological Problems: No - MUSCULOSKELETAL/RHEUMATOLOGICAL Hx Musculoskeletal Disorders: Yes Hx Arthritis: Yes Hx Falls: No - GASTROINTESTINAL Hx Gastrointestinal Disorders: Yes Hx Gastroesophageal Reflux: Yes - GENITOURINARY/GYNECOLOGICAL Hx Genitourinary Disorders: No - PSYCHIATRIC Hx Substance Use: No - SURGICAL HISTORY Hx Surgeries: Yes Hx Cholecystectomy: Yes - ANESTHESIA Hx Anesthesia: No Meds Allergies/Adverse Reactions: Allergies Allergy/AdvReac Type Severity Reaction Status Date / Time No Known Allergies Allergy Unverified 03/13/18 18:52 - Medications Medications: Current Medications Aspirin (Ecotrin) 81 mg PO DAILY [facility] Last Admin: 03/14/18 10:30 Dose: 81 mg Atorvastatin Calcium (Lipitor) 40 mg PO DIN [facility] Cinacalcet (Sensipar) 30 mg PO DAILY [facility] Darbepoetin Chencho (Aranesp) 40 mcg IVP QWK [facility] Dextrose (Dextrose 50% Inj) 0 ml IV STAT PRN; Protocol PRN Reason: Hypoglycemia Protocol Heparin Sodium (Porcine) (Heparin) 5,000 units SC Q12 [facility]; Protocol Last Admin: 03/14/18 10:36 Dose: Not Given Heparin Sodium (Porcine) (Heparin) 2,000 units IVP MWF [facility]; Protocol Dextrose (Dextrose 5% In Water 1000 Ml) 1,000 mls @ 0 mls/hr IV .Q0M PRN; Protocol PRN Reason: Hypoglycemia Protocol Insulin Human Lispro (Humalog Med) 0 units SC ACHS [facility]; Protocol Last Admin: 03/14/18 12:57 Dose: Not Given Losartan Potassium (Cozaar) 25 mg PO QPM [facility] Nifedipine (Procardia Xl) 60 mg PO DAILY [facility] Oseltamivir Phosphate (Tamiflu Cap) 30 mg PO DAILY [facility]; Protocol Last Admin: 03/14/18 10:30 Dose: 30 mg Pantoprazole Sodium (Protonix Ec Tab) 40 mg PO 0600 [facility] Last Admin: 03/14/18 05:52 Dose: 40 mg Vitamin B Complex/Vit C/Folic Acid (Nephro-Geno) 1 tab PO 0800 [facility] Physical Exam - Head Exam Head Exam: ATRAUMATIC, NORMAL INSPECTION, NORMOCEPHALIC - Eye Exam Eye Exam: EOMI - ENT Exam ENT Exam: Mucous Membranes Moist Additional comments: mild right sided facial droop from previous stroke - Respiratory Exam Respiratory Exam: Rhonchi - Cardiovascular Exam Cardiovascular Exam: REGULAR RHYTHM, +S1, +S2 - GI/Abdominal Exam GI & Abdominal Exam: Normal Bowel Sounds, Soft - Extremities Exam Additional comments: mild weakness on right side remnant from previous stroke - Neurological Exam Neurological exam: Alert, CN II-XII Intact, Oriented x3 - Expanded Neurological Exam Expanded Patient oriented to: person Speech: Fluid Speech Cranial nerves: EOM's Intact: Normal Cerebellar Function: Finger to Nose: Normal Sensory exam: Upper Extremity Light Touch: Normal Neuro motor strength exam: Left Upper Extremity: 4, Right Upper Extremity: 3, Left Lower Extremity: 4, Right Lower Extremity: 3 - Psychiatric Exam Psychiatric exam: Normal Affect, Normal Mood Results - Vital Signs Recent Vital Signs: Last Vital Signs Temp 98 F 03/14/18 12:00 Pulse 73 03/14/18 14:00 Resp 20 03/14/18 12:00 BP 126/62 03/14/18 14:00 Pulse Ox 100 03/14/18 06:00 - Labs Result Diagrams: 03/15/18 12:20 03/14/18 06:30 Labs: Laboratory Results - last 24 hr 03/13/18 03/13/18 03/13/18 21:10 21:17 21:17 WBC 9.7 RBC 3.22 L Hgb 9.7 L Hct 30.7 L MCV 95.3 MCH 30.1 MCHC 31.6 RDW 16.5 H Plt Count 261 MPV 9.9 Gran % 72.4 H Lymph % (Auto) 13.3 L [place] % (Auto) 12.6 H Eos % (Auto) 1.5 Baso % (Auto) 0.2 Gran # 7.03 H Lymph # (Auto) 1.3 [place] # (Auto) 1.2 H Eos # (Auto) 0.2 Baso # (Auto) 0.02 PT 12.6 H INR 1.10 APTT 28.4 pO2 VBG pH VBG pCO2 VBG HCO3 VBG Total CO2 VBG O2 Sat (Calc) VBG Base Excess VBG Potassium Sodium Chloride Glucose Lactate FiO2 Potassium Carbon Dioxide Anion Gap BUN Creatinine Est GFR ( Amer) Est GFR (Non-Af Amer) POC Glucose (mg/dL) Random Glucose Hemoglobin A1c Calcium Total Bilirubin AST ALT Alkaline Phosphatase Troponin I NT-Pro-B Natriuret Pep Total Protein Albumin Globulin Albumin/Globulin Ratio Triglycerides Cholesterol LDL Cholesterol Direct HDL Cholesterol Procalcitonin 0.51 H Venous Blood Potassium Influenza Typ A,B (EIA) Blood Type Antibody Screen Antibody Identification Antigen Identification BBK History Checked 03/13/18 03/13/18 03/14/18 21:17 21:17 06:25 WBC RBC Hgb Hct MCV MCH MCHC RDW Plt Count MPV Gran % Lymph % (Auto) [place] % (Auto) Eos % (Auto) Baso % (Auto) Gran # Lymph # (Auto) [place] # (Auto) Eos # (Auto) Baso # (Auto) PT INR APTT pO2 61 H VBG pH 7.40 VBG pCO2 58.0 VBG HCO3 35.9 H VBG Total CO2 37.7 H VBG O2 Sat (Calc) 94.6 H VBG Base Excess 9.0 H VBG Potassium 4.0 Sodium 135 135.0 Chloride 92 L 95.0 L Glucose 80 Lactate 0.7 FiO2 21.0 Potassium 4.2 Carbon Dioxide 35 H Anion Gap 12 BUN 23 H Creatinine 3.7 H Est GFR ( Amer) 14 Est GFR (Non-Af Amer) 12 POC Glucose (mg/dL) Random Glucose 87 Hemoglobin A1c Calcium 8.8 Total Bilirubin 0.7 AST 34 ALT 28 Alkaline Phosphatase 79 Troponin I 0.08 NT-Pro-B Natriuret Pep 6720 H Total Protein 9.4 H Albumin 4.3 Globulin 5.2 Albumin/Globulin Ratio 0.8 L Triglycerides Cholesterol LDL Cholesterol Direct HDL Cholesterol Procalcitonin Venous Blood Potassium 4.0 Influenza Typ A,B (EIA) Blood Type B POSITIVE Antibody Screen Positive Antibody Identification Anti K Antigen Identification K Antigen - NEGATIVE BBK History Checked No verified bt 03/14/18 03/14/18 03/14/18 06:30 06:30 06:30 WBC 8.4 RBC 3.09 L Hgb 9.1 L Hct 30.0 L MCV 97.1 MCH 29.4 MCHC 30.3 L RDW 16.8 H Plt Count 241 MPV 9.6 Gran % 69.5 H Lymph % (Auto) 16.0 L [place] % (Auto) 12.4 H Eos % (Auto) 1.9 Baso % (Auto) 0.2 Gran # 5.81 Lymph # (Auto) 1.3 [place] # (Auto) 1.0 H Eos # (Auto) 0.2 Baso # (Auto) 0.02 PT INR APTT pO2 VBG pH VBG pCO2 VBG HCO3 VBG Total CO2 VBG O2 Sat (Calc) VBG Base Excess VBG Potassium Sodium 133 Chloride 94 L Glucose Lactate FiO2 Potassium 4.3 Carbon Dioxide 32 Anion Gap 13 BUN 29 H Creatinine 4.5 H Est GFR ( Amer) 11 Est GFR (Non-Af Amer) 9 POC Glucose (mg/dL) Random Glucose 71 Hemoglobin A1c 5.1 Calcium 8.4 Total Bilirubin 0.7 AST 35 ALT 22 Alkaline Phosphatase 71 Troponin I NT-Pro-B Natriuret Pep Total Protein 8.7 H Albumin 3.9 Globulin 4.8 Albumin/Globulin Ratio 0.8 L Triglycerides 90 Cholesterol 246 H LDL Cholesterol Direct 158 H HDL Cholesterol 34 Procalcitonin Venous Blood Potassium Influenza Typ A,B (EIA) Blood Type Antibody Screen Antibody Identification Antigen Identification BBK History Checked 03/14/18 03/14/18 03/14/18 09:23 09:31 10:17 WBC RBC Hgb Hct MCV MCH MCHC RDW Plt Count MPV Gran % Lymph % (Auto) [place] % (Auto) Eos % (Auto) Baso % (Auto) Gran # Lymph # (Auto) [place] # (Auto) Eos # (Auto) Baso # (Auto) PT INR APTT pO2 VBG pH VBG pCO2 VBG HCO3 VBG Total CO2 VBG O2 Sat (Calc) VBG Base Excess VBG Potassium Sodium Chloride Glucose Lactate FiO2 Potassium Carbon Dioxide Anion Gap BUN Creatinine Est GFR ( Amer) Est GFR (Non-Af Amer) POC Glucose (mg/dL) 55 L 98 Random Glucose Hemoglobin A1c Calcium Total Bilirubin AST ALT Alkaline Phosphatase Troponin I NT-Pro-B Natriuret Pep Total Protein Albumin Globulin Albumin/Globulin Ratio Triglycerides Cholesterol LDL Cholesterol Direct HDL Cholesterol Procalcitonin Venous Blood Potassium Influenza Typ A,B (EIA) Negative for flu a/b Blood Type Antibody Screen Antibody Identification Antigen Identification BBK History Checked Assessment & Plan - Assessment and Plan (Free Text) Assessment: Pt is an 82 yo F with pmhx of ESRD (HD on ), DM, GERD, HLD, HTN, prior CVA/TIA who presents for weakness in upper extremity, difficulty speaking, R sided facial droop after her HD session Plan R/O CVA -CT head repeat -Carotid duplex US -Echocardiogram -Continue current medication regimen -Clear patient of underlying infection since this can cause previous stroke deficits to manifest more <Jenny Olivarez - Last Filed: 03/15/18 20:54> History of Present Illness - History of Present Illness History of Present Illness: I examined the patient independently and helped to formulate the assessment and plan. Dr. Olivarez Meds - Medications Medications: Current Medications Albuterol/Ipratropium (Duoneb 3 Mg/0.5 Mg (3 Ml) Ud) 3 ml IH [id number] [facility] Last Admin: 03/15/18 20:13 Dose: 3 ml Albuterol/Ipratropium (Duoneb 3 Mg/0.5 Mg (3 Ml) Ud) 3 ml IH Q2H PRN PRN Reason: Shortness of Breath Aspirin (Ecotrin) 81 mg PO DAILY [facility] Last Admin: 03/15/18 15:44 Dose: 81 mg Atorvastatin Calcium (Lipitor) 40 mg PO DIN [facility] Last Admin: 03/15/18 18:54 Dose: 40 mg Benzocaine/Menthol (Cepacol Sore Throat) 1 [place] Q2H PRN PRN Reason: Sore Throat Benzonatate (Tessalon Perles) 100 mg PO TID [facility] Last Admin: 03/15/18 18:54 Dose: 100 mg Cinacalcet (Sensipar) 30 mg PO DAILY [facility] Last Admin: 03/15/18 15:43 Dose: 30 mg Darbepoetin Chencho (Aranesp) 40 mcg IVP QWK [facility] Last Admin: 03/15/18 12:20 Dose: 40 mcg Dextrose (Dextrose 50% Inj) 0 ml IV STAT PRN; Protocol PRN Reason: Hypoglycemia Protocol Guaifenesin/Dextromethorphan (Robitussin Dm) 5 ml PO Q4H PRN PRN Reason: Cough Last Admin: 03/15/18 11:00 Dose: 5 ml Heparin Sodium (Porcine) (Heparin) 5,000 units SC Q12 [facility]; Protocol Last Admin: 03/15/18 10:30 Dose: Not Given Heparin Sodium (Porcine) (Heparin) 2,000 units IVP MWF [facility]; Protocol Last Admin: 03/15/18 15:45 Dose: Not Given Dextrose (Dextrose 5% In Water 1000 Ml) 1,000 mls @ 0 mls/hr IV .Q0M PRN; Protocol PRN Reason: Hypoglycemia Protocol Azithromycin (Zithromax 500mg In Ns) 500 mg in 250 mls @ 167 mls/hr IVPB DAILY [facility]; Protocol Last Admin: 03/15/18 15:44 Dose: 167 mls/hr Insulin Human Lispro (Humalog Med) 0 units SC ACHS [facility]; Protocol Last Admin: 03/15/18 16:26 Dose: Not Given Losartan Potassium (Cozaar) 25 mg PO QPM [facility] Last Admin: 03/15/18 18:54 Dose: 25 mg Nifedipine (Procardia Xl) 60 mg PO DAILY [facility] Last Admin: 03/15/18 15:43 Dose: 60 mg Oseltamivir Phosphate (Tamiflu Cap) 30 mg PO DAILY [facility]; Protocol Last Admin: 03/15/18 15:45 Dose: 30 mg Vitamin B Complex/Vit C/Folic Acid (Nephro-Geno) 1 tab PO 0800 [facility] Last Admin: 03/15/18 08:21 Dose: 1 tab Results - Vital Signs Recent Vital Signs: Last Vital Signs Temp 98.1 F 03/15/18 17:58 Pulse 98 H 03/15/18 18:54 Resp 18 03/15/18 17:58 BP 137/67 03/15/18 18:54 Pulse Ox 100 03/14/18 06:00 - Labs Result Diagrams: 03/15/18 12:20 03/15/18 12:15 Labs: Laboratory Results - last 24 hr 03/14/18 03/14/18 03/15/18 21:31 22:30 07:30 WBC RBC Hgb Hct MCV MCH MCHC RDW Plt Count MPV Gran % Lymph % (Auto) [place] % (Auto) Eos % (Auto) Baso % (Auto) Gran # Lymph # (Auto) [place] # (Auto) Eos # (Auto) Baso # (Auto) Sodium Potassium Chloride Carbon Dioxide Anion Gap BUN Creatinine Est GFR ( Amer) Est GFR (Non-Af Amer) POC Glucose (mg/dL) 104 79 Random Glucose Calcium Phosphorus Total Bilirubin AST ALT Alkaline Phosphatase Total Protein Albumin Globulin Albumin/Globulin Ratio Urine Color Yellow Urine Appearance Sl cloudy Urine pH 6.0 Ur Specific [place] 1.025 Urine Protein 100 H Urine Glucose (UA) Negative Urine Ketones Negative Urine Blood Small H Urine Nitrate Negative Urine Bilirubin Negative Urine Urobilinogen 0.2 Ur Leukocyte Esterase Negative Urine RBC 0 - 2 Urine WBC 0 - 2 Ur Epithelial Cells Many H Urine Bacteria Small Hep Bs Antigen Hep Bs Antibody 03/15/18 03/15/18 03/15/18 12:15 12:15 12:20 WBC 7.0 RBC 2.97 L Hgb 8.9 L Hct 28.5 L MCV 96.0 MCH 30.0 MCHC 31.2 RDW 16.2 H Plt Count 275 MPV 9.6 Gran % 63.9 Lymph % (Auto) 15.1 L [place] % (Auto) 17.4 H Eos % (Auto) 3.3 Baso % (Auto) 0.3 Gran # 4.50 Lymph # (Auto) 1.1 L [place] # (Auto) 1.2 H Eos # (Auto) 0.2 Baso # (Auto) 0.02 Sodium 133 Potassium 4.5 Chloride 92 L Carbon Dioxide 30 Anion Gap 15 BUN 50 H Creatinine 6.3 H Est GFR ( Amer) 8 Est GFR (Non-Af Amer) 6 POC Glucose (mg/dL) Random Glucose 112 H Calcium 8.3 L Phosphorus 7.3 H Total Bilirubin 0.5 AST 39 H ALT 21 Alkaline Phosphatase 84 Total Protein 8.5 H Albumin 3.9 Globulin 4.6 Albumin/Globulin Ratio 0.8 L Urine Color Urine Appearance Urine pH Ur Specific [place] Urine Protein Urine Glucose (UA) Urine Ketones Urine Blood Urine Nitrate Urine Bilirubin Urine Urobilinogen Ur Leukocyte Esterase Urine RBC Urine WBC Ur Epithelial Cells Urine Bacteria Hep Bs Antigen Negative Hep Bs Antibody Positive 03/15/18 16:01 WBC RBC Hgb Hct MCV MCH MCHC RDW Plt Count MPV Gran % Lymph % (Auto) [place] % (Auto) Eos % (Auto) Baso % (Auto) Gran # Lymph # (Auto) [place] # (Auto) Eos # (Auto) Baso # (Auto) Sodium Potassium Chloride Carbon Dioxide Anion Gap BUN Creatinine Est GFR ( Amer) Est GFR (Non-Af Amer) POC Glucose (mg/dL) 83 Random Glucose Calcium Phosphorus Total Bilirubin AST ALT Alkaline Phosphatase Total Protein Albumin Globulin Albumin/Globulin Ratio Urine Color Urine Appearance Urine pH Ur Specific [place] Urine Protein Urine Glucose (UA) Urine Ketones Urine Blood Urine Nitrate Urine Bilirubin Urine Urobilinogen Ur Leukocyte Esterase Urine RBC Urine WBC Ur Epithelial Cells Urine Bacteria Hep Bs Antigen Hep Bs Antibody
--- NOTE | 2018-03-14 15:57 | CARD ---
APPROVED REPORT Date of service: 03/14/2018 EXAM: Two-dimensional and M-mode echocardiogram with Doppler and color Doppler. INDICATION CVA/TIA 2D DIMENSIONS Left Atrium (2D)5.0 (1.6-4.0cm)IVSd1.0 (0.7-1.1cm) LVDd5.4 (3.9-5.9cm)PWd1.4 (0.7-1.1cm) LVDs3.8 (2.5-4.0cm)FS (%) 29.8 % LVEF (%)56.6 (>50%) M-Mode DIMENSIONS Aortic Root2.40 (2.2-3.7cm)Aortic Cusp Exc.1.40 (1.5-2.0cm) Aortic Valve AoV Peak Dqkhlzib544.0cm/sAoV VTI56.4cmAO Peak GR.25mmHg AO Mean GR.14mmHgAI P 1/2 [id number] Mitral Valve MV E Owwobsso734.0cm/sMV A Bjfsjlgh164.0cm/sE/A ratio0.7 TDI E/Lateral E'0.0E/Medial E'0.0 Tricuspid Valve TR Peak [id number]/sRAP [id number] Peak Gr.10mmHg [id number] LEFT VENTRICLE The left ventricle is normal size. There is normal left ventricular wall thickness. The left ventricular function is normal. The left ventricular ejection fraction is within the normal range. There is normal LV segmental wall motion. Transmitral Doppler flow pattern is Grade I-abnormal relaxation pattern. RIGHT VENTRICLE The right ventricle is normal size. There is normal right ventricular wall thickness. The right ventricular systolic function is normal. ATRIA The left atrium is moderately dilated. The right atrium size is normal. AORTIC VALVE The aortic valve is severely sclerotic. There is mild to moderate aortic regurgitation. There is mild valvular aortic stenosis. MITRAL VALVE Mitral annular calcification is moderate to severe. Mitral regurgitation is mild. There is no mitral valve stenosis. TRICUSPID VALVE There is mild tricuspid regurgitation. GREAT VESSELS The aortic root is normal in size. <Conclusion> There is normal left ventricular wall thickness. The left ventricular function is normal. The left ventricular ejection fraction is within the normal range. There is normal LV segmental wall motion. Transmitral Doppler flow pattern is Grade I-abnormal relaxation pattern. There is mild to moderate aortic regurgitation. There is mild valvular aortic stenosis. Mitral regurgitation is mild.
--- NOTE | 2018-03-14 18:26 | CARD ---
APPROVED REPORT Date of service: 03/13/2018 EKG Measurement Heart [id number] <Conclusion> Sinus rhythm with 1st degree AV block with occasional premature ventricular complexes Left axis deviation Moderate voltage criteria for LVH, may be normal variant Nonspecific T wave abnormality Abnormal ECG
[2018-03-14] MEDS: guaiFENesin DM 100 mg-10 mg/5 ml UD PO PRN (23:57)
[2018-03-15 00:23] LABS: URINE APPEARANCE SL CLOUDY (CLEAR); URINE BILIRUBIN NEGATIVE (NEGATIVE); URINE BLOOD SMALL (NEGATIVE); URINE COLOR YELLOW (YELLOW); URINE GLUCOSE (UA) NEGATIVE (NEGATIVE); URINE LEUKOCYTE ESTERASE NEGATIVE Leu/uL (NEGATIVE); URINE PROTEIN 100 mg/dL (<30 mg/dL); URINE UROBILINOGEN 0.2 E.U./dL (<1 E.U./dL)
[2018-03-15 00:30] LABS: URINE BACTERIA SMALL /hpf; URINE EPITHELIAL CELLS MANY /hpf (0-5); URINE RBC 0 - 2 /hpf (0-2); URINE WBC 0 - 2 /hpf (0-6)
[2018-03-15] MEDS: Pantoprazole 40 mg EC Tab PO SCH (05:16)
[2018-03-15] MEDS: Insulin Lispro (humaLOG) MEDIUM Coverage SC SCH ×4 (08:03→22:08)
--- NOTE | 2018-03-15 08:06 | CP.PCM.PN ---
Subjective - Date & Time of Evaluation Date of Evaluation: 03/15/18 Time of Evaluation: 08:04 - Subjective Subjective: Nephrology Consultation Note: Assessment: Stable SIRS ? source TIA Diabetic chronic Kidney Disease (E11.22) Hypertensive Chronic Kidney Disease (I12.0) End stage renal disease (N18.6) dependence on hemodialysis (Z99.2) (MWF) via AVF Anemia (D64.9), Hyperphosphatemia (E83.39), Secondary Hyperparathyroidism (E21. 1), HTN (I12.0) Plan: No acute need for dialysis today. Will plan for dialysis tomorrow. Continue with Nephrovite 1 tab/day. PRBC as needed for anemia. on SERGE with dialysis as last Hb 9.1 Continue with phos binders. check phos level today continue sensipar 30 mg/d BP control with meds as ordered. Glycemic control, Dialysis consistent diet Further work up/management as per primary team Dose meds/antibiotics (if needed) for ESRD status. Avoid fleets enema/magnesium based laxatives. SIRS and neuro work up ongoing S: seen and examined feels tired but otherwise ok Physical Examination: General Appearance: Comfortable, in no acute respiratory distress, co-operative . Vitals reviewed and noted as below Head; Atraumatic, normocephalic ENT: no ulcers no thrush. Tongue is midline. Oropharynx: no rash or ulcers. EYES: Pupils are equal, round and reactive to light accommodation. . Sclera is anicteric. Neck; supple no lymphadenopathy, no thyromegaly or bruit Lungs: Normal respiratory rate/effort. Breath sounds bilateral equal and clear Heart: Normal rate. s1s2 normal. No rub or gallop. Extremities: no edema. No varicose veins Neurological: Patient is alert, awake and oriented to person, place and time. No focal deficit. Strength bilateral appropriate and equal Skin: Warm and dry. Normal turgor. No rash. Palpitation: Normal elasticity for age Abdomen: Abdomen is soft. Bowel sounds +. There is no abdominal tenderness, no guarding/rigidity or organomegaly Psych: normal insight and normal affect/mood MSK: no joint tenderness or swelling. Digits and nails normal, no deformity : kidney or bladder not palpable Access: AVF with thrill and bruit Labs/imaging reviewed. Past medical history, past surgical history, family history, social history, a llergy reviewed and noted as below Family Hx: no hx of CKD. Non contributory Objective - Vital Signs/Intake and Output Vital Signs (last 24 hours): Temp Pulse Resp BP Pulse Ox 97.8 F 80 18 150/65 100 03/15/18 00:01 03/15/18 06:00 03/15/18 06:00 03/15/18 06:00 03/14/18 06:00 Intake and Output: 03/15/18 03/15/18 06:59 18:59 Intake Total 240 Output Total 100 Balance 140 - Medications Medications: Current Medications Aspirin (Ecotrin) 81 mg PO DAILY [facility] Last Admin: 03/14/18 10:30 Dose: 81 mg Atorvastatin Calcium (Lipitor) 40 mg PO DIN [facility] Last Admin: 03/14/18 17:36 Dose: 40 mg Cinacalcet (Sensipar) 30 mg PO DAILY [facility] Darbepoetin Chencho (Aranesp) 40 mcg IVP QWK [facility] Dextrose (Dextrose 50% Inj) 0 ml IV STAT PRN; Protocol PRN Reason: Hypoglycemia Protocol Guaifenesin/Dextromethorphan (Robitussin Dm) 5 ml PO Q4H PRN PRN Reason: Cough Last Admin: 03/14/18 23:57 Dose: 5 ml Heparin Sodium (Porcine) (Heparin) 5,000 units SC Q12 [facility]; Protocol Last Admin: 03/14/18 21:47 Dose: 5,000 units Heparin Sodium (Porcine) (Heparin) 2,000 units IVP MWF [facility]; Protocol Dextrose (Dextrose 5% In Water 1000 Ml) 1,000 mls @ 0 mls/hr IV .Q0M PRN; Protocol PRN Reason: Hypoglycemia Protocol Insulin Human Lispro (Humalog Med) 0 units SC ACHS [facility]; Protocol Last Admin: 03/15/18 08:03 Dose: Not Given Losartan Potassium (Cozaar) 25 mg PO QPM [facility] Last Admin: 03/14/18 17:36 Dose: 25 mg Nifedipine (Procardia Xl) 60 mg PO DAILY [facility] Oseltamivir Phosphate (Tamiflu Cap) 30 mg PO DAILY [facility]; Protocol Last Admin: 03/14/18 10:30 Dose: 30 mg Pantoprazole Sodium (Protonix Ec Tab) 40 mg PO 0600 [facility] Last Admin: 03/15/18 05:16 Dose: 40 mg Vitamin B Complex/Vit C/Folic Acid (Nephro-Geno) 1 tab PO 0800 [facility] - Labs Labs: 03/14/18 06:30 03/14/18 06:30 PT 12.6 SECONDS (9.4-12.5) H 03/13/18 21:17 INR 1.10 03/13/18 21:17 APTT 28.4 Seconds (25.1-36.5) 03/13/18 21:17
[2018-03-15] MEDS: Multivitamin Vitamin B Complex (Nephro-Vite) Tab PO SCH (08:21)
--- NOTE | 2018-03-15 09:17 | RAD ---
Date of service: 03/14/2018 HISTORY: Questionable pneumonia COMPARISON: 03/13/2018 TECHNIQUE: Chest PA and lateral FINDINGS: LUNGS: Minimal platelike atelectasis at the right lung base. The lungs are otherwise clear PLEURA: No significant pleural effusion identified. No pneumothorax apparent. CARDIOVASCULAR: Aortic calcification Mild cardiomegaly no pulmonary vascular congestion. OSSEOUS STRUCTURES: No significant abnormalities. VISUALIZED UPPER ABDOMEN: Normal. OTHER FINDINGS: None. IMPRESSION: No active disease.
--- NOTE | 2018-03-15 09:17 | CP.PCM.PN ---
<Mariajose Vásquez - Last Filed: 03/15/18 09:25> Subjective - Date & Time of Evaluation Date of Evaluation: 03/15/18 Time of Evaluation: 09:16 - Subjective Subjective: ID progress note PGY-[address] Gilmore Objective - Vital Signs/Intake and Output Vital Signs (last 24 hours): Temp Pulse Resp BP Pulse Ox 97.8 F 80 18 150/65 100 03/15/18 00:01 03/15/18 06:00 03/15/18 06:00 03/15/18 06:00 03/14/18 06:00 Intake and Output: 03/15/18 03/15/18 06:59 18:59 Intake Total 240 Output Total 100 Balance 140 - Medications Medications: Current Medications Aspirin (Ecotrin) 81 mg PO DAILY [facility] Last Admin: 03/14/18 10:30 Dose: 81 mg Atorvastatin Calcium (Lipitor) 40 mg PO DIN [facility] Last Admin: 03/14/18 17:36 Dose: 40 mg Cinacalcet (Sensipar) 30 mg PO DAILY [facility] Darbepoetin Chencho (Aranesp) 40 mcg IVP QWK [facility] Dextrose (Dextrose 50% Inj) 0 ml IV STAT PRN; Protocol PRN Reason: Hypoglycemia Protocol Guaifenesin/Dextromethorphan (Robitussin Dm) 5 ml PO Q4H PRN PRN Reason: Cough Last Admin: 03/14/18 23:57 Dose: 5 ml Heparin Sodium (Porcine) (Heparin) 5,000 units SC Q12 [facility]; Protocol Last Admin: 03/14/18 21:47 Dose: 5,000 units Heparin Sodium (Porcine) (Heparin) 2,000 units IVP MWF [facility]; Protocol Dextrose (Dextrose 5% In Water 1000 Ml) 1,000 mls @ 0 mls/hr IV .Q0M PRN; Protocol PRN Reason: Hypoglycemia Protocol Insulin Human Lispro (Humalog Med) 0 units SC ACHS [facility]; Protocol Last Admin: 03/15/18 08:03 Dose: Not Given Losartan Potassium (Cozaar) 25 mg PO QPM [facility] Last Admin: 03/14/18 17:36 Dose: 25 mg Nifedipine (Procardia Xl) 60 mg PO DAILY [facility] Oseltamivir Phosphate (Tamiflu Cap) 30 mg PO DAILY [facility]; Protocol Last Admin: 03/14/18 10:30 Dose: 30 mg Pantoprazole Sodium (Protonix Ec Tab) 40 mg PO 0600 [facility] Last Admin: 03/15/18 05:16 Dose: 40 mg Vitamin B Complex/Vit C/Folic Acid (Nephro-Geno) 1 tab PO 0800 [facility] Last Admin: 03/15/18 08:21 Dose: 1 tab - Labs Labs: 03/14/18 06:30 03/14/18 06:30 PT 12.6 SECONDS (9.4-12.5) H 03/13/18 21:17 INR 1.10 03/13/18 21:17 APTT 28.4 Seconds (25.1-36.5) 03/13/18 21:17 Assessment and Plan - Assessment and Plan (Free Text) Plan: Ms Solorio, 82F, with PMHx CVA, HTN/HLD, DM, ESRD (HD MWF) C/O weakness in upper extremity, difficulty speaking, R sided facial droop after her HD session. Her temperature noted to be 101.9F and HR 102 with sore throat, dry cough x 1 day. A: Possible influenza due to high specificity from symptoms during flu endemic Sepsis (2/4) due to systemi viral illness likely influenza questionable community acquired pneumonia, 2 points on curb-65 for age and ESRD TIA vs stroke P: - Oseltamivir renal dose: 30mg x 1. Then 30mg daily x 5 days. On dialysis day, give it after dialysis. - airborne precaution - cepacol lozenges PRN for sore throat, tylenol prn for fever - follow on CXR 2 view, procalcitonin, blood, sputum, urine culture - ___WBC? - ABX? Rocephin + azithromax - neuro work up per primary and neural team Imaging/Lab - EKG: NSR 90. 1st degree AV block - Head CT: Periventricular white matter oschemic changes, chronic. No hemorrhage - CXR: No active disease - Flu screen negative. - CXR PA/LA: ___lateral film looks like RUL pna__vs fluid overload - Procalcitonin: 0.55 high, 0.99 high - Blood culture: neg x 1d <Kris Gilmore - Last Filed: 03/15/18 13:26> Objective - Vital Signs/Intake and Output Vital Signs (last 24 hours): Temp Pulse Resp BP Pulse Ox 97.8 F 87 18 150/65 100 03/15/18 00:01 03/15/18 10:00 03/15/18 06:00 03/15/18 06:00 03/14/18 06:00 Intake and Output: 03/15/18 03/15/18 06:59 18:59 Intake Total 240 Output Total 100 Balance 140 - Medications Medications: Current Medications Albuterol/Ipratropium (Duoneb 3 Mg/0.5 Mg (3 Ml) Ud) 3 ml IH [id number] [facility] Last Admin: 03/15/18 13:13 Dose: Not Given Albuterol/Ipratropium (Duoneb 3 Mg/0.5 Mg (3 Ml) Ud) 3 ml IH Q2H PRN PRN Reason: Shortness of Breath Aspirin (Ecotrin) 81 mg PO DAILY [facility] Last Admin: 03/14/18 10:30 Dose: 81 mg Atorvastatin Calcium (Lipitor) 40 mg PO DIN [facility] Last Admin: 03/14/18 17:36 Dose: 40 mg Benzocaine/Menthol (Cepacol Sore Throat) 1 eamon MT Q2H PRN PRN Reason: Sore Throat Benzonatate (Tessalon Perles) 100 mg PO TID [facility] Cinacalcet (Sensipar) 30 mg PO DAILY [facility] Darbepoetin Chencho (Aranesp) 40 mcg IVP QWK [facility] Last Admin: 03/15/18 12:20 Dose: 40 mcg Dextrose (Dextrose 50% Inj) 0 ml IV STAT PRN; Protocol PRN Reason: Hypoglycemia Protocol Guaifenesin/Dextromethorphan (Robitussin Dm) 5 ml PO Q4H PRN PRN Reason: Cough Last Admin: 03/15/18 11:00 Dose: 5 ml Heparin Sodium (Porcine) (Heparin) 5,000 units SC Q12 [facility]; Protocol Last Admin: 03/14/18 21:47 Dose: 5,000 units Heparin Sodium (Porcine) (Heparin) 2,000 units IVP MWF [facility]; Protocol Dextrose (Dextrose 5% In Water 1000 Ml) 1,000 mls @ 0 mls/hr IV .Q0M PRN; Protocol PRN Reason: Hypoglycemia Protocol Insulin Human Lispro (Humalog Med) 0 units SC ACHS [facility]; Protocol Last Admin: 03/15/18 08:03 Dose: Not Given Losartan Potassium (Cozaar) 25 mg PO QPM [facility] Last Admin: 03/14/18 17:36 Dose: 25 mg Nifedipine (Procardia Xl) 60 mg PO DAILY [facility] Oseltamivir Phosphate (Tamiflu Cap) 30 mg PO DAILY [facility]; Protocol Last Admin: 03/14/18 10:30 Dose: 30 mg Vitamin B Complex/Vit C/Folic Acid (Nephro-Geno) 1 tab PO 0800 [facility] Last Admin: 03/15/18 08:21 Dose: 1 tab - Labs Labs: 03/15/18 12:20 03/15/18 12:15 PT 12.6 SECONDS (9.4-12.5) H 03/13/18 21:17 INR 1.10 03/13/18 21:17 APTT 28.4 Seconds (25.1-36.5) 03/13/18 21:17 Assessment and Plan - Assessment and Plan (Free Text) Plan: Infectious diseases Attending Physician Attestation Patient seen and examined, discussed with medical billing assistant. I have reviewed the patient's history of present illness, past medical, social, personal and family histories, pertinent physical exam findings, course so far in this hospital admission, pertinent laboratory and imaging results. I agree with the above findings, assessment and plan. In addition, continue Tamiflu for possible I nfluenza infection, consider acute bronchitis. Will give Zithromax as well. Reviewed CXR which shows atelectasis but no infiltrates noted. Will continue to monitor clinically.
[2018-03-15] MEDS ORDERED: Darbepoetin Alfa 40 mcg/ml Inj IVP SCH (10:00)
--- NOTE | 2018-03-15 10:21 | CT ---
Date of service: 03/14/2018 PROCEDURE: CT HEAD WITHOUT CONTRAST. HISTORY: r/o stroke COMPARISON: 03/13/2018 TECHNIQUE: Axial computed tomography images were obtained through the head/brain without intravenous contrast. Radiation dose: Total exam DLP = 889.15 mGy-cm. This CT exam was performed using one or more of the following dose reduction techniques: Automated exposure control, adjustment of the mA and/or kV according to patient size, and/or use of iterative reconstruction technique. FINDINGS: HEMORRHAGE: No intracranial hemorrhage. BRAIN: No mass effect or edema. Severe chronic microvascular changes are seen in the periventricular white matter. There are no acute findings VENTRICLES: Unremarkable. No hydrocephalus. CALVARIUM: Unremarkable. PARANASAL SINUSES: Unremarkable as visualized. No significant inflammatory changes. MASTOID AIR CELLS: Unremarkable as visualized. No inflammatory changes. OTHER FINDINGS: The report concurs with the preliminary [facility] report IMPRESSION: No acute findings
[2018-03-15] MEDS: guaiFENesin DM 100 mg-10 mg/5 ml UD PO PRN ×2 (11:00→21:52)
--- NOTE | 2018-03-15 11:25 | MRI ---
Date of service: 03/14/2018 PROCEDURE: MRI BRAIN WITHOUT CONTRAST HISTORY: r/o stroke COMPARISON: None available. TECHNIQUE: Multiplanar, multisequence MR images of the brain were obtained without intravenous contrast enhancement. FINDINGS: HEMORRHAGE: None DWI: No evidence of an acute or early subacute infarction. BRAIN PARENCHYMA: No mass effect or edema. Severe chronic microvascular changes are seen in the periventricular white matter. VENTRICLES: Unremarkable. No hydrocephalus. CRANIUM: Unremarkable. ORBITS: Grossly unremarkable. PARANASAL SINUSES/MASTOIDS: Clear VASCULAR SYSTEM: Skull base flow voids intact. OTHER FINDINGS: The report concurs with the preliminary [facility] report IMPRESSION: No acute intracranial findings. Severe chronic microvascular changes in the periventricular white matter
[2018-03-15] MEDS ORDERED: Albuterol-Ipratrop 3 mg / 0.5 (3 ml) UD IH PRN (11:55)
--- NOTE | 2018-03-15 11:55 | RAD ---
Date of service: 03/15/2018 HISTORY: Cough/ Wheezing COMPARISON: 03/14/2018. FINDINGS: LUNGS: Persistent atelectasis right lower lobe. PLEURA: No significant pleural effusion identified, no pneumothorax apparent. CARDIOVASCULAR: Cardiomegaly. No evidence of acute, significant cardiovascular disease. Atherosclerotic calcifications identified primarily aortic arch. OSSEOUS STRUCTURES: No significant abnormalities. VISUALIZED UPPER ABDOMEN: Normal. OTHER FINDINGS: None. IMPRESSION: No active disease. No significant interval change compared to the prior examination(s).
--- NOTE | 2018-03-15 11:56 | CP.PCM.PN ---
<Erna Maciel - Last Filed: 03/15/18 14:19> Subjective - Date & Time of Evaluation Date of Evaluation: 03/15/18 Time of Evaluation: 07:30 - Subjective Subjective: Internal medicine progress note for Dr. Medina patient seen and examined this am at bedside. NAEO per nursing. Patient is continuing to have cough now productive of sputum. All previous symptoms of weakness are now resolved. patient otherwise denies APODACA, CP, difficulty breathing, abdominal pain, f/c, n/v, stool changes and extremity numbness, pain or weakness. Objective - Vital Signs/Intake and Output Vital Signs (last 24 hours): Temp Pulse Resp BP Pulse Ox 97.8 F 87 18 150/65 100 03/15/18 00:01 03/15/18 10:00 03/15/18 06:00 03/15/18 06:00 03/14/18 06:00 Intake and Output: 03/15/18 03/15/18 06:59 18:59 Intake Total 240 Output Total 100 Balance 140 - Medications Medications: Current Medications Albuterol/Ipratropium (Duoneb 3 Mg/0.5 Mg (3 Ml) Ud) 3 ml IH [id number] [facility] Albuterol/Ipratropium (Duoneb 3 Mg/0.5 Mg (3 Ml) Ud) 3 ml IH Q2H PRN PRN Reason: Shortness of Breath Aspirin (Ecotrin) 81 mg PO DAILY [facility] Last Admin: 03/14/18 10:30 Dose: 81 mg Atorvastatin Calcium (Lipitor) 40 mg PO DIN [facility] Last Admin: 03/14/18 17:36 Dose: 40 mg Cinacalcet (Sensipar) 30 mg PO DAILY [facility] Darbepoetin Chnecho (Aranesp) 40 mcg IVP QWK [facility] Dextrose (Dextrose 50% Inj) 0 ml IV STAT PRN; Protocol PRN Reason: Hypoglycemia Protocol Guaifenesin/Dextromethorphan (Robitussin Dm) 5 ml PO Q4H PRN PRN Reason: Cough Last Admin: 03/15/18 11:00 Dose: 5 ml Heparin Sodium (Porcine) (Heparin) 5,000 units SC Q12 [facility]; Protocol Last Admin: 03/14/18 21:47 Dose: 5,000 units Heparin Sodium (Porcine) (Heparin) 2,000 units IVP MWF [facility]; Protocol Dextrose (Dextrose 5% In Water 1000 Ml) 1,000 mls @ 0 mls/hr IV .Q0M PRN; Protocol PRN Reason: Hypoglycemia Protocol Insulin Human Lispro (Humalog Med) 0 units SC ACHS [facility]; Protocol Last Admin: 03/15/18 08:03 Dose: Not Given Losartan Potassium (Cozaar) 25 mg PO QPM [facility] Last Admin: 03/14/18 17:36 Dose: 25 mg Nifedipine (Procardia Xl) 60 mg PO DAILY [facility] Oseltamivir Phosphate (Tamiflu Cap) 30 mg PO DAILY [facility]; Protocol Last Admin: 03/14/18 10:30 Dose: 30 mg Vitamin B Complex/Vit C/Folic Acid (Nephro-Geno) 1 tab PO 0800 [facility] Last Admin: 03/15/18 08:21 Dose: 1 tab - Labs Labs: 03/14/18 06:30 03/14/18 06:30 PT 12.6 SECONDS (9.4-12.5) H 03/13/18 21:17 INR 1.10 03/13/18 21:17 APTT 28.4 Seconds (25.1-36.5) 03/13/18 21:17 - Constitutional Appears: Well, Non-toxic, No Acute Distress - Head Exam Head Exam: ATRAUMATIC, NORMOCEPHALIC - Eye Exam Eye Exam: EOMI - ENT Exam ENT Exam: Mucous Membranes Moist - Respiratory Exam Respiratory Exam: Wheezes, NORMAL BREATHING PATTERN - Cardiovascular Exam Cardiovascular Exam: REGULAR RHYTHM. absent: Tachycardia - GI/Abdominal Exam GI & Abdominal Exam: Soft. absent: Distended, Guarding, Tenderness - Extremities Exam Extremities Exam: absent: Calf Tenderness, Pedal Edema - Neurological Exam Neurological Exam: Alert, Awake, Oriented x3 - Psychiatric Exam Psychiatric exam: Normal Affect, Normal Mood - Skin Skin Exam: Dry, Intact, Normal Color, Warm Assessment and Plan - Assessment and Plan (Free Text) Assessment: Pt is an 82 yo F with pmhx of ESRD (HD on -), DM, GERD, HLD, HTN, prior CVA who presents for weakness in upper extremity, difficulty speaking, R sided facial droop after her HD session, all symptoms resolved, imaging reveals no acute pathology, pt now with productive cough Plan: 1. SIRS: - afebrile during admission since initial fever - day 2 of tamiflu - Blood, urine and sputum cxs pending - CXR - duonebs and robitussin for cough - ID consulted 2. TIA vs Stroke: - Pt has returned to baseline per family, and no focal neurologic deficits remaining on exam - Lipitor - ASA - home BP meds resumed - PT consulted - Neurology on board: Dr. Olivarez 3. Hx of DM: - ISS - HbgA1c: 5.1 4. Hx of ESRD: - Nephrology on board - Dr. Barrett - Dialysis -- (last session was today) 5. Hx of HTN: - restarted BP meds d/t resolution of sx and negative workup 6. PPx: - GI: Protonix - DVT: Heparin Q12SC and IVP at dialysis Pts family would like to be informed before any procedures are done on the pt: - Minerva Méndez: <Cecille Medina R - Last Filed: 03/17/18 10:43> Objective - Vital Signs/Intake and Output Vital Signs (last 24 hours): Temp Pulse Resp BP Pulse Ox 99.4 F 87 18 119/50 L 96 03/17/18 06:00 03/17/18 06:00 03/17/18 06:00 03/17/18 06:00 03/17/18 06:00 Intake and Output: 03/17/18 03/17/18 06:59 18:59 Intake Total 360 Output Total 100 Balance 260 - Medications Medications: Current Medications Albuterol/Ipratropium (Duoneb 3 Mg/0.5 Mg (3 Ml) Ud) 3 ml IH [id number] [facility] Last Admin: 03/17/18 08:07 Dose: 3 ml Albuterol/Ipratropium (Duoneb 3 Mg/0.5 Mg (3 Ml) Ud) 3 ml IH Q2H PRN PRN Reason: Shortness of Breath Aspirin (Ecotrin) 81 mg PO DAILY [facility] Last Admin: 03/16/18 10:26 Dose: 81 mg Atorvastatin Calcium (Lipitor) 40 mg PO DIN [facility] Last Admin: 03/16/18 18:05 Dose: 40 mg Benzocaine/Menthol (Cepacol Sore Throat) 1 eamon MT Q2H PRN PRN Reason: Sore Throat Benzonatate (Tessalon Perles) 100 mg PO TID [facility] Last Admin: 03/16/18 18:05 Dose: 100 mg Cinacalcet (Sensipar) 30 mg PO DAILY [facility] Last Admin: 03/16/18 10:27 Dose: 30 mg Darbepoetin Chencho (Aranesp) 40 mcg IVP QWK [facility] Last Admin: 03/15/18 12:20 Dose: 40 mcg Dextrose (Dextrose 50% Inj) 0 ml IV STAT PRN; Protocol PRN Reason: Hypoglycemia Protocol Docusate Sodium (Colace) 100 mg PO DAILY [facility] Guaifenesin (Robitussin) 100 mg PO Q4H [facility] Last Admin: 03/17/18 09:05 Dose: 100 mg Guaifenesin/Dextromethorphan (Robitussin Dm) 5 ml PO Q4H PRN PRN Reason: Cough Last Admin: 03/16/18 14:05 Dose: 5 ml Heparin Sodium (Porcine) (Heparin) 5,000 units SC Q12 [facility]; Protocol Last Admin: 03/16/18 22:41 Dose: 5,000 units Heparin Sodium (Porcine) (Heparin) 2,000 units IVP MWF [facility]; Protocol Last Admin: 03/15/18 15:45 Dose: Not Given Dextrose (Dextrose 5% In Water 1000 Ml) 1,000 mls @ 0 mls/hr IV .Q0M PRN; Protocol PRN Reason: Hypoglycemia Protocol Azithromycin (Zithromax 500mg In Ns) 500 mg in 250 mls @ 167 mls/hr IVPB DAILY [facility]; Protocol Last Admin: 03/16/18 10:27 Dose: 167 mls/hr Insulin Human Lispro (Humalog Med) 0 units SC ACHS [facility]; Protocol Last Admin: 03/17/18 08:18 Dose: Not Given Losartan Potassium (Cozaar) 25 mg PO QPM [facility] Last Admin: 03/16/18 18:05 Dose: 25 mg Nifedipine (Procardia Xl) 60 mg PO DAILY [facility] Last Admin: 03/16/18 10:27 Dose: 60 mg Oseltamivir Phosphate (Tamiflu Cap) 30 mg PO DAILY [facility]; Protocol Last Admin: 03/16/18 10:27 Dose: 30 mg Vitamin B Complex/Vit C/Folic Acid (Nephro-Geno) 1 tab PO 0800 [facility] Last Admin: 03/17/18 08:58 Dose: 1 tab - Labs Labs: 03/17/18 07:00 03/17/18 07:00 PT 12.6 SECONDS (9.4-12.5) H 03/13/18 21:17 INR 1.10 03/13/18 21:17 APTT 28.4 Seconds (25.1-36.5) 03/13/18 21:17 Attending/Attestation - Attestation I have personally seen and examined this patient.: Yes I have fully participated in the care of the patient.: Yes I have reviewed all pertinent clinical information, including history, physical exam and plan: Yes Notes (Text): Patient seen and examined by me with resident at 9:40AM on 03/15/18. Case including HPI, physical exam, and assessment and plan discussed with resident. Agree with above with following additions/corrections. Patient is an 82 year old female with past medical history significant for ESRD dialysis Sunday/Sunday/Sunday, DM2, GERD, hyperlipidemia, hypertension, and prior CVA/TIA who presented to the emergency room with weakness in the upper extremity, difficulty speaking, and right sided facial droop. Patient states that she is feeling ok. Complains of cough and feeling weak. States the coughing is causing abdominal pain. Patient denies any chest pain or shortness of breath. No headaches or dizziness. No lightheadedness. No fevers or chills. No dysuria. No diarrhea or constipation. Physical exam: General: Awake and alert lying in bed in no acute distress HEENT: Normocephalic, atraumatic. Extraocular muscles intact, pupils equal and reactive, no scleral icterus. Oropharynx is pink and moist. No pharyngeal erythema or exudate appreciated.. Neck is supple. Cardiovascular: Regular rhythm. Normal S1 and S2. No murmurs, rubs, or gallops appreciated Pulmonary: Normal respiratory effort. Mild wheezing noted throughout. No rales or rhonchi appreciated. Gastrointestinal: Soft, nondistended. Nontender. Positive bowel sounds all 4 quadrants. No guarding. Musculoskeletal: Moves all extremities. No calf tenderness. No edema appreciated. Central nervous system: AAO x3, CN 2-12 grossly intact. Dermatologic: Skin warm and dry. Assessment and plan: Patient is an 82 year old female with past medical history significant for ESRD dialysis Sunday/Sunday/Sunday, DM2, GERD, hyperlipidemia, hypertension, and prior CVA/TIA who presented to the emergency room with weakness in the upper extremity, difficulty speaking, and right sided facial droop. 1. SIRS. Fever resolved. No leukocytosis. ID following, recommendations appreciated. Patient on Tamiflu for possible influenza. Follow up blood and u rine cultures. Also started on Zithromax for possible acute bronchitis. Continue nebulizer treatments. Continue robitussin as needed. Chest xray per radiologist shows no active disease. 2. Right facial droop, right upper extremity weakness, dysarthria. Resolved. Neurology following, recommendations appreciated. Head CT per radiologist showed not acute findings. Brain MRI per radiologist showed no acute intracranial findings, severe chronic microvascular changes in the periventricular white anh er. Carotid ultrasound per radiologist showed 40-59% proximal right ICA stenosis, 20-39% proximal left ICA stenosis, antegrade flow in both vertebral arteries. 2d echo per banner painter showed normal left ventricular wall thickness, left ventricular function is normal, left ventricular EF is within normal range, normal LV segmental wall motion, Transmitral Doppler flow pattern is grade 1-abnormal relaxation pattern, mild to moderate aortic regurgitation, mild valvular aortic stenosis, mitral regurgitation is mild. Continue ASA and Lipitor. 3. DM2. Continue insulin sliding scale. Continue to monitor accuchecks. 4. Hypertension. Continue Nifedipine and Cozaar 5. Hyperlipidemia. Continue Lipitor 6. ESRD on HD. Continue dialysis M/W/. Nephrology following, recommendations appreciated. Continue Nephrovite and Sensipar. 7. Anemia. Likely secondary to chronic disease. Continue Aranesp weekly. Continue to monitor CBC. 8. Patient is a full code. Case was discussed in detail with the patient and patients family at bedside regarding current diagnosis and treatment plan. All questions answered.
[2018-03-15] MEDS ORDERED: Benzocaine/Menthol (Cepacol) Lozenge MT PRN (12:19)
[2018-03-15 12:23] LABS: BASO # 0.02 K/mm3 (0.0-2.0); BASO % 0.3 % (0.0-3.0); EOS # 0.2 (0.0-0.7); EOS % 3.3 % (1.5-5.0); GRAN # 4.5 (1.4-6.5); GRAN % 63.9 % (50.0-68.0); HEMOGLOBIN 8.9 g/dL (12.0-16.0); LYMPH # 1.1 (1.2-3.4); LYMPH % 15.1 % (22.0-35.0); MEAN CORPUSCULAR HGB CONC 31.2 g/dl (31.0-37.0); MEAN PLATELET VOLUME 9.6 fl (7.0-11.0); MONO # 1.2 (0.1-0.6); MONO % 17.4 % (1.0-6.0); RBC 2.97 10^6/uL (3.5-6.1); RED CELL DISTRIBUTION WIDTH 16.2 % (11.5-14.5)
[2018-03-15] MEDS: Albuterol-Ipratrop 3 mg / 0.5 (3 ml) UD IH SCH ×2 (13:13→20:13)
[2018-03-15 13:14] LABS: ALB/GLOB RATIO 0.8 (1.1-1.8); ALBUMIN 3.9 g/dL (3.0-4.8); ALT/SGPT 21 U/L (7-56); AST/SGOT 39 U/L (14-36); BLOOD UREA NITROGEN 50 mg/dL (7-21); CALCIUM 8.3 mg/dL (8.4-10.5); GFR NON-AFRICAN AMERICAN 6
[2018-03-15] MEDS ORDERED: Albuterol-Ipratrop 3 mg / 0.5 (3 ml) UD IH SCH (14:00)
[2018-03-15] MEDS: NIFEdipine 60 mg ER Tab PO SCH (15:43)
[2018-03-15] MEDS: Azithromycin 500MG/NS 250ml 500 MG/250 ML BAG IVPB SCH (15:44)
[2018-03-15 16:30] LABS: HEPATITIS B SURFACE AG Negative (NEGATIVE)
[2018-03-16] MEDS: Albuterol-Ipratrop 3 mg / 0.5 (3 ml) UD IH SCH ×4 (01:28→19:48)
[2018-03-16] MEDS: guaiFENesin DM 100 mg-10 mg/5 ml UD PO PRN ×2 (05:31→14:05)
[2018-03-16] MEDS: Insulin Lispro (humaLOG) MEDIUM Coverage SC SCH ×4 (07:54→22:48)
[2018-03-16] MEDS: Multivitamin Vitamin B Complex (Nephro-Vite) Tab PO SCH (08:02)
[2018-03-16 08:22] LABS: BASO # 0.02 K/mm3 (0.0-2.0); BASO % 0.3 % (0.0-3.0); EOS # 0.1 (0.0-0.7); EOS % 1.5 % (1.5-5.0); GRAN # 4.65 (1.4-6.5); GRAN % 61.7 % (50.0-68.0); LYMPH # 1.1 (1.2-3.4); LYMPH % 14.8 % (22.0-35.0); MEAN CELL VOLUME 96.4 fl (80.0-105.0); MEAN CORPUSCULAR HEMOGLOBIN 29.6 pg (25.0-35.0); MEAN CORPUSCULAR HGB CONC 30.7 g/dl (31.0-37.0); MEAN PLATELET VOLUME 9.7 fl (7.0-11.0); MONO # 1.6 (0.1-0.6); MONO % 21.7 % (1.0-6.0); PLATELET COUNT 307 10^3/uL (120.0-450.0); RBC 3.04 10^6/uL (3.5-6.1); RED CELL DISTRIBUTION WIDTH 16.2 % (11.5-14.5); WHITE BLOOD COUNT 7.5 10^3/uL (4.5-11.0)
[2018-03-16 08:37] LABS: ALB/GLOB RATIO 0.8 (1.1-1.8); CALCIUM 8.2 mg/dL (8.4-10.5)
[2018-03-16 09:55] LABS: EOSINOPHIL 3 % (0.0-3.0); LYMPHOCYTE 12 % (22.0-35.0); MONOCYTE 21 % (1.0-6.0)
[2018-03-16 09:56] LABS: HYPOCHROMIA 2+; NEUTROPHIL 63 % (50.0-70.0); PLATELET ESTIMATE NORMAL (NORMAL); ROULEAU 2+; TARGET CELLS 1+; TOXIC GRANULATION 2+
[2018-03-16] MEDS: NIFEdipine 60 mg ER Tab PO SCH (10:27)
[2018-03-16] MEDS: Azithromycin 500MG/NS 250ml 500 MG/250 ML BAG IVPB SCH (10:27)
--- NOTE | 2018-03-16 12:49 | PN ---
DATE: 03/16/2018 SUBJECTIVE: The patient is in bed. No fevers, no chills. PHYSICAL EXAMINATION: VITAL SIGNS: Temperature is 99, blood pressure is 120/50, respiratory rate 20, heart rate of 85. HEENT: Examination is unremarkable. NECK: Supple. LUNGS: Have decreased breath sounds. HEART: Normal S1, S2. ABDOMEN: Soft, nontender. LABORATORY DATA: Examination reveals a white count of 7.5, hemoglobin of 9, platelets of 307. Coagulation is noted. Chemistries reveal BUN of 27, creatinine of 4.9. Urinalysis is noted. Serology is noted. Microbiology reveals the blood cultures are no growth. Urine cultures, contamination, multiple species. Sputum cultures are pending. MEDICATIONS: Review of orders reveals the patient is on Tamiflu, IV azithromycin. ASSESSMENT AND PLAN: An 82-year-old female, seen earlier this morning with possibility of influenza and sepsis, viral illness, questionable community-acquired pneumonia and end-stage renal disease, on Tamiflu, on intravenous Zithromax. Negative chest x-ray from yesterday. We will check on the urine, Legionella antigen. We will check on the procalcitonin. May be able to switch the Zithromax to p.o. We will follow with you. Nicanor Vergara MD
--- NOTE | 2018-03-16 13:30 | CP.PCM.PN ---
Subjective - Date & Time of Evaluation Date of Evaluation: 03/16/18 Time of Evaluation: 13:29 - Subjective Subjective: Nephrology Consultation Note: Assessment: Stable SIRS ? source TIA Diabetic chronic Kidney Disease (E11.22) Hypertensive Chronic Kidney Disease (I12.0) End stage renal disease (N18.6) dependence on hemodialysis (Z99.2) (MWF) via AVF Anemia (D64.9), Hyperphosphatemia (E83.39), Secondary Hyperparathyroidism (E21. 1), HTN (I12.0) Plan: HD MWF PRBC as needed for anemia. on SERGE with dialysis weekly Continue with phos binders. continue sensipar 30 mg/d BP control with meds as ordered. Glycemic control, Dialysis consistent diet Further work up/management as per primary team Dose meds/antibiotics (if needed) for ESRD status. Avoid fleets enema/magnesium based laxatives. SIRS and neuro work up ongoing S: seen and examined feels tired mildly confused Physical Examination: General Appearance: Comfortable, in no acute respiratory distress, co-operative . Vitals reviewed and noted as below Head; Atraumatic, normocephalic ENT: no ulcers no thrush. Tongue is midline. Oropharynx: no rash or ulcers. EYES: Pupils are equal, round and reactive to light accommodation. . Sclera is anicteric. Neck; supple no lymphadenopathy, no thyromegaly or bruit Lungs: Normal respiratory rate/effort. Breath sounds bilateral equal and clear Heart: Normal rate. s1s2 normal. No rub or gallop. Extremities: no edema. No varicose veins Neurological: Patient is alert, awake. No focal deficit. Strength bilateral appropriate and equal Skin: Warm and dry. Normal turgor. No rash. Palpitation: Normal elasticity for age Abdomen: Abdomen is soft. Bowel sounds +. There is no abdominal tenderness, no guarding/rigidity or organomegaly Psych: normal insight and normal affect/mood MSK: no joint tenderness or swelling. Digits and nails normal, no deformity : kidney or bladder not palpable Access: AVF with thrill and bruit Labs/imaging reviewed. Past medical history, past surgical history, family history, social history, allergy reviewed and noted as below Family Hx: no hx of CKD. Non contributory Objective - Vital Signs/Intake and Output Vital Signs (last 24 hours): Temp Pulse Resp BP Pulse Ox 98.8 F 85 20 127/57 L 96 03/16/18 06:00 03/16/18 06:00 03/16/18 06:00 03/16/18 06:00 03/16/18 06:00 Intake and Output: 03/16/18 03/16/18 06:59 18:59 Intake Total 540 Output Total 100 Balance 440 - Medications Medications: Current Medications Albuterol/Ipratropium (Duoneb 3 Mg/0.5 Mg (3 Ml) Ud) 3 ml IH [id number] [facility] Last Admin: 03/16/18 08:39 Dose: 3 ml Albuterol/Ipratropium (Duoneb 3 Mg/0.5 Mg (3 Ml) Ud) 3 ml IH Q2H PRN PRN Reason: Shortness of Breath Aspirin (Ecotrin) 81 mg PO DAILY [facility] Last Admin: 03/16/18 10:26 Dose: 81 mg Atorvastatin Calcium (Lipitor) 40 mg PO DIN [facility] Last Admin: 03/15/18 18:54 Dose: 40 mg Benzocaine/Menthol (Cepacol Sore Throat) 1 eamon MT Q2H PRN PRN Reason: Sore Throat Benzonatate (Tessalon Perles) 100 mg PO TID [facility] Last Admin: 03/16/18 10:27 Dose: 100 mg Cinacalcet (Sensipar) 30 mg PO DAILY [facility] Last Admin: 03/16/18 10:27 Dose: 30 mg Darbepoetin Chencho (Aranesp) 40 mcg IVP QWK [facility] Last Admin: 03/15/18 12:20 Dose: 40 mcg Dextrose (Dextrose 50% Inj) 0 ml IV STAT PRN; Protocol PRN Reason: Hypoglycemia Protocol Guaifenesin/Dextromethorphan (Robitussin Dm) 5 ml PO Q4H PRN PRN Reason: Cough Last Admin: 03/16/18 05:31 Dose: 5 ml Heparin Sodium (Porcine) (Heparin) 5,000 units SC Q12 [facility]; Protocol Last Admin: 03/16/18 10:26 Dose: 5,000 units Heparin Sodium (Porcine) (Heparin) 2,000 units IVP MWF [facility]; Protocol Last Admin: 03/15/18 15:45 Dose: Not Given Dextrose (Dextrose 5% In Water 1000 Ml) 1,000 mls @ 0 mls/hr IV .Q0M PRN; Protocol PRN Reason: Hypoglycemia Protocol Azithromycin (Zithromax 500mg In Ns) 500 mg in 250 mls @ 167 mls/hr IVPB DAILY [facility]; Protocol Last Admin: 03/16/18 10:27 Dose: 167 mls/hr Insulin Human Lispro (Humalog Med) 0 units SC ACHS [facility]; Protocol Last Admin: 03/16/18 12:19 Dose: Not Given Losartan Potassium (Cozaar) 25 mg PO QPM [facility] Last Admin: 03/15/18 18:54 Dose: 25 mg Nifedipine (Procardia Xl) 60 mg PO DAILY [facility] Last Admin: 03/16/18 10:27 Dose: 60 mg Oseltamivir Phosphate (Tamiflu Cap) 30 mg PO DAILY [facility]; Protocol Last Admin: 03/16/18 10:27 Dose: 30 mg Vitamin B Complex/Vit C/Folic Acid (Nephro-Geno) 1 tab PO 0800 [facility] Last Admin: 03/16/18 08:02 Dose: 1 tab - Labs Labs: 03/16/18 07:30 03/16/18 07:30 PT 12.6 SECONDS (9.4-12.5) H 03/13/18 21:17 INR 1.10 03/13/18 21:17 APTT 28.4 Seconds (25.1-36.5) 03/13/18 21:17
--- NOTE | 2018-03-16 14:28 | CP.PCM.PN ---
<Eugenio Spencer - Last Filed: 03/16/18 14:31> Subjective - Date & Time of Evaluation Date of Evaluation: 03/16/18 Time of Evaluation: 09:00 - Subjective Subjective: Patient seen and examined at bedside. Patient admits to having her cough. Denies chest pain, shortness of breath, nausea, vomiting, diarrhea, fever, chills. Objective - Vital Signs/Intake and Output Vital Signs (last 24 hours): Temp Pulse Resp BP Pulse Ox 99.6 F 76 18 109/56 L 96 03/16/18 12:00 03/16/18 12:00 03/16/18 12:00 03/16/18 12:00 03/16/18 06:00 Intake and Output: 03/16/18 03/16/18 06:59 18:59 Intake Total 540 Output Total 100 Balance 440 - Medications Medications: Current Medications Albuterol/Ipratropium (Duoneb 3 Mg/0.5 Mg (3 Ml) Ud) 3 ml IH [id number] [facility] Last Admin: 03/16/18 08:39 Dose: 3 ml Albuterol/Ipratropium (Duoneb 3 Mg/0.5 Mg (3 Ml) Ud) 3 ml IH Q2H PRN PRN Reason: Shortness of Breath Aspirin (Ecotrin) 81 mg PO DAILY [facility] Last Admin: 03/16/18 10:26 Dose: 81 mg Atorvastatin Calcium (Lipitor) 40 mg PO DIN [facility] Last Admin: 03/15/18 18:54 Dose: 40 mg Benzocaine/Menthol (Cepacol Sore Throat) 1 eamon MT Q2H PRN PRN Reason: Sore Throat Benzonatate (Tessalon Perles) 100 mg PO TID [facility] Last Admin: 03/16/18 14:05 Dose: 100 mg Cinacalcet (Sensipar) 30 mg PO DAILY [facility] Last Admin: 03/16/18 10:27 Dose: 30 mg Darbepoetin Chencho (Aranesp) 40 mcg IVP QWK [facility] Last Admin: 03/15/18 12:20 Dose: 40 mcg Dextrose (Dextrose 50% Inj) 0 ml IV STAT PRN; Protocol PRN Reason: Hypoglycemia Protocol Guaifenesin/Dextromethorphan (Robitussin Dm) 5 ml PO Q4H PRN PRN Reason: Cough Last Admin: 03/16/18 14:05 Dose: 5 ml Heparin Sodium (Porcine) (Heparin) 5,000 units SC Q12 [facility]; Protocol Last Admin: 03/16/18 10:26 Dose: 5,000 units Heparin Sodium (Porcine) (Heparin) 2,000 units IVP MWF [facility]; Protocol Last Admin: 03/15/18 15:45 Dose: Not Given Dextrose (Dextrose 5% In Water 1000 Ml) 1,000 mls @ 0 mls/hr IV .Q0M PRN; Protocol PRN Reason: Hypoglycemia Protocol Azithromycin (Zithromax 500mg In Ns) 500 mg in 250 mls @ 167 mls/hr IVPB DAILY [facility]; Protocol Last Admin: 03/16/18 10:27 Dose: 167 mls/hr Insulin Human Lispro (Humalog Med) 0 units SC ACHS [facility]; Protocol Last Admin: 03/16/18 12:19 Dose: Not Given Losartan Potassium (Cozaar) 25 mg PO QPM [facility] Last Admin: 03/15/18 18:54 Dose: 25 mg Nifedipine (Procardia Xl) 60 mg PO DAILY [facility] Last Admin: 03/16/18 10:27 Dose: 60 mg Oseltamivir Phosphate (Tamiflu Cap) 30 mg PO DAILY [facility]; Protocol Last Admin: 03/16/18 10:27 Dose: 30 mg Vitamin B Complex/Vit C/Folic Acid (Nephro-Geno) 1 tab PO 0800 [facility] Last Admin: 03/16/18 08:02 Dose: 1 tab - Labs Labs: 03/16/18 07:30 03/16/18 07:30 PT 12.6 SECONDS (9.4-12.5) H 03/13/18 21:17 INR 1.10 03/13/18 21:17 APTT 28.4 Seconds (25.1-36.5) 03/13/18 21:17 - Constitutional Appears: Non-toxic, No Acute Distress - Head Exam Head Exam: ATRAUMATIC, NORMAL INSPECTION, NORMOCEPHALIC - ENT Exam ENT Exam: Mucous Membranes Dry - Respiratory Exam Respiratory Exam: Decreased Breath Sounds, NORMAL BREATHING PATTERN. absent: Rales, Rhonchi, Wheezes - Cardiovascular Exam Cardiovascular Exam: RRR, +S1, +S2 - GI/Abdominal Exam GI & Abdominal Exam: Soft, Normal Bowel Sounds. absent: Tenderness - Extremities Exam Extremities Exam: Normal Inspection. absent: Calf Tenderness, Pedal Edema - Neurological Exam Neurological Exam: Alert, Awake, Oriented x3 - Psychiatric Exam Psychiatric exam: Normal Affect, Normal Mood - Skin Skin Exam: Intact, Normal Color, Warm Assessment and Plan - Assessment and Plan (Free Text) Plan: 82 yo F with pmhx of ESRD on HD MWF, DM, GERD, HLD, HTN, and prior CVA presents with for TIA and questionable community acquired pneumonia. Family member Minerva Méndez updated on patient's current status. Minerva Méndez: [phone]. 1. Community acquired pneumonia Continue Azithromycin Continue Tamiflu for flu-like symptoms Continue Duonebs Blood and sputum cultures negative ID following, Dr. Vergara 2. TIA Continue ASA and Lipitor Brain MRI negative Head CT negative Physical therapy following, recommend [facility] Neurology following, Dr. Olivarez 3. Hx of DM: ISS 4. Hx of ESRD: Nephrology following, Dr. Barrett Continue Dialysis schedule as per Nephrology 5. Hx of HTN: Continue Cozaar and Nifedipine 6. Prophylaxis Protonix Heparin sq Tj, PGY-3 <Monae Mendoza - Last Filed: 03/17/18 11:17> Objective - Vital Signs/Intake and Output Vital Signs (last 24 hours): Temp Pulse Resp BP Pulse Ox 99.4 F 87 18 119/50 L 96 03/17/18 06:00 03/17/18 06:00 03/17/18 06:00 03/17/18 06:00 03/17/18 06:00 Intake and Output: 03/17/18 03/17/18 06:59 18:59 Intake Total 360 Output Total 100 Balance 260 - Medications Medications: Current Medications Albuterol/Ipratropium (Duoneb 3 Mg/0.5 Mg (3 Ml) Ud) 3 ml IH [id number] [facility] Last Admin: 03/17/18 08:07 Dose: 3 ml Albuterol/Ipratropium (Duoneb 3 Mg/0.5 Mg (3 Ml) Ud) 3 ml IH Q2H PRN PRN Reason: Shortness of Breath Aspirin (Ecotrin) 81 mg PO DAILY [facility] Last Admin: 03/16/18 10:26 Dose: 81 mg Atorvastatin Calcium (Lipitor) 40 mg PO DIN [facility] Last Admin: 03/16/18 18:05 Dose: 40 mg Benzocaine/Menthol (Cepacol Sore Throat) 1 eamon MT Q2H PRN PRN Reason: Sore Throat Benzonatate (Tessalon Perles) 100 mg PO TID [facility] Last Admin: 03/16/18 18:05 Dose: 100 mg Cinacalcet (Sensipar) 30 mg PO DAILY [facility] Last Admin: 03/16/18 10:27 Dose: 30 mg Darbepoetin Chencho (Aranesp) 40 mcg IVP QWK [facility] Last Admin: 03/15/18 12:20 Dose: 40 mcg Dextrose (Dextrose 50% Inj) 0 ml IV STAT PRN; Protocol PRN Reason: Hypoglycemia Protocol Docusate Sodium (Colace) 100 mg PO DAILY [facility] Guaifenesin (Robitussin) 100 mg PO Q4H [facility] Last Admin: 03/17/18 09:05 Dose: 100 mg Guaifenesin/Dextromethorphan (Robitussin Dm) 5 ml PO Q4H PRN PRN Reason: Cough Last Admin: 03/16/18 14:05 Dose: 5 ml Heparin Sodium (Porcine) (Heparin) 5,000 units SC Q12 [facility]; Protocol Last Admin: 03/16/18 22:41 Dose: 5,000 units Heparin Sodium (Porcine) (Heparin) 2,000 units IVP MWF [facility]; Protocol Last Admin: 03/15/18 15:45 Dose: Not Given Dextrose (Dextrose 5% In Water 1000 Ml) 1,000 mls @ 0 mls/hr IV .Q0M PRN; Protocol PRN Reason: Hypoglycemia Protocol Azithromycin (Zithromax 500mg In Ns) 500 mg in 250 mls @ 167 mls/hr IVPB DAILY [facility]; Protocol Last Admin: 03/16/18 10:27 Dose: 167 mls/hr Insulin Human Lispro (Humalog Med) 0 units SC ACHS [facility]; Protocol Last Admin: 03/17/18 08:18 Dose: Not Given Losartan Potassium (Cozaar) 25 mg PO QPM [facility] Last Admin: 03/16/18 18:05 Dose: 25 mg Nifedipine (Procardia Xl) 60 mg PO DAILY [facility] Last Admin: 03/16/18 10:27 Dose: 60 mg Oseltamivir Phosphate (Tamiflu Cap) 30 mg PO DAILY [facility]; Protocol Last Admin: 03/16/18 10:27 Dose: 30 mg Vitamin B Complex/Vit C/Folic Acid (Nephro-Geno) 1 tab PO 0800 [facility] Last Admin: 03/17/18 08:58 Dose: 1 tab - Labs Labs: 03/17/18 07:00 03/17/18 07:00 PT 12.6 SECONDS (9.4-12.5) H 03/13/18 21:17 INR 1.10 03/13/18 21:17 APTT 28.4 Seconds (25.1-36.5) 03/13/18 21:17 Attending/Attestation - Attestation I have personally seen and examined this patient.: Yes I have fully participated in the care of the patient.: Yes I have reviewed all pertinent clinical information, including history, physical exam and plan: Yes Notes (Text): 03/17/18 11:12 attending note; Patient seen and examined with resident. Patient is alert and awake. Complaining of cough. Getting breathing treatment. Denies any chest pain. Denies any fevers, chills. Tolerating diet. Complaining of generalized weakness. Patient is an 82 year old female with past medical history significant for ESRD dialysis Sunday/Sunday/Sunday, DM2, GERD, hyperlipidemia, hypertension, and prior CVA/TIA who presented to the emergency room with weakness in the upper extremity, difficulty speaking, and right sided facial droop. 1. SIRS. Fever resolved. Severe bronchitis with significant cough. No leukocytosis. ID Evaluation appreciated. Patient on Tamiflu for possible influenza. blood and urine culture is negative so far. on Zithromax for possible acute bronchitis. Continue nebulizer treatments. Continue robitussin as needed. Chest xray shows no active disease. 2. Right facial droop, right upper extremity weakness, dysarthria. Resolved. Neurology evaluation appreciated. Head CT showed not acute findings. Brain MRI showed no acute intracranial findings, severe chronic microvascular changes in the periventricular white matter. Carotid ultrasound showed 40-59% proximal right ICA stenosis, 20-39% proximal left ICA stenosis, antegrade flow in both vertebral arteries. 2d echo per pan devulcanizer helper showed normal left ventricular wall thickness, left ventricular function is normal, left ventricular EF is within normal range, normal LV segmental wall motion, Transmitral Doppler flow pattern is grade 1-abnormal relaxation pattern, mild to moderate aortic regurgitation, mild valvular aortic stenosis, mitral regurgitation is mild. Continue ASA and Lipitor. 3. DM2. Continue insulin sliding scale. Continue to monitor accuchecks. 4. Hypertension. Continue Nifedipine and Cozaar 5. Hyperlipidemia. Continue Lipitor 6. ESRD on HD. Continue dialysis M/W/. Had hemodialysis on Sunday. Continue Nephrovite and Sensipar. 7. Anemia. Likely secondary to chronic disease. Continue Aranesp weekly. Continue to monitor CBC. PT evaluation appreciated. Subacute rehabilitation recommended. Will discuss with case checker on Sunday for rehabilitation placement, the diagnosis, treatment plan discussed with family in detail.
[2018-03-16] MEDS ORDERED: POLYETHYLENE GLYCOL 3350 17 GM/Dose PACKET PO ONE (20:27)
[2018-03-17] MEDS: Albuterol-Ipratrop 3 mg / 0.5 (3 ml) UD IH SCH ×4 (01:20→20:09)
[2018-03-17 08:00] LABS: BASO # 0.02 K/mm3 (0.0-2.0); BASO % 0.3 % (0.0-3.0); EOS # 0.2 (0.0-0.7); EOS % 2.4 % (1.5-5.0); GRAN # 3.95 (1.4-6.5); HEMOGLOBIN 8.1 g/dL (12.0-16.0); LYMPH # 1.3 (1.2-3.4); MEAN CELL VOLUME 96.7 fl (80.0-105.0); MEAN CORPUSCULAR HEMOGLOBIN 29.5 pg (25.0-35.0); MEAN CORPUSCULAR HGB CONC 30.5 g/dl (31.0-37.0); MONO # 1.4 (0.1-0.6); MONO % 20.3 % (1.0-6.0); RBC 2.75 10^6/uL (3.5-6.1); RED CELL DISTRIBUTION WIDTH 16.1 % (11.5-14.5); WHITE BLOOD COUNT 6.8 10^3/uL (4.5-11.0)
[2018-03-17] MEDS: Insulin Lispro (humaLOG) MEDIUM Coverage SC SCH ×4 (08:18→22:15)
[2018-03-17 08:38] LABS: ALB/GLOB RATIO 0.8 (1.1-1.8); ALBUMIN 3.9 g/dL (3.0-4.8)
[2018-03-17] MEDS: Multivitamin Vitamin B Complex (Nephro-Vite) Tab PO SCH (08:58)
[2018-03-17] MEDS: guaiFENesin 100 mg/5 ml Syrup UD PO SCH ×4 (09:05→21:29)
--- NOTE | 2018-03-17 11:18 | CP.PCM.PN ---
<Biju Ralph R - Last Filed: 03/17/18 11:15> Subjective - Date & Time of Evaluation Date of Evaluation: 03/17/18 Time of Evaluation: 11:15 - Subjective Subjective: PGY-2 medicine progress note for Dr Mendoza No acute events noted overnight. Patient breathing easy on 2L nasal cannula, no SOB/distress noted. She is refusing SCDs. Main complaint was cough. Stated she is feeling better compared to when she first arrived. Denied chest pain, shortness of breath, fevers/chills. Objective - Vital Signs/Intake and Output Vital Signs (last 24 hours): Temp Pulse Resp BP Pulse Ox 99.4 F 87 18 119/50 L 96 03/17/18 06:00 03/17/18 06:00 03/17/18 06:00 03/17/18 06:00 03/17/18 06:00 Intake and Output: 03/17/18 03/17/18 06:59 18:59 Intake Total 360 Output Total 100 Balance 260 - Medications Medications: Current Medications Albuterol/Ipratropium (Duoneb 3 Mg/0.5 Mg (3 Ml) Ud) 3 ml IH [id number] [facility] Last Admin: 03/17/18 08:07 Dose: 3 ml Albuterol/Ipratropium (Duoneb 3 Mg/0.5 Mg (3 Ml) Ud) 3 ml IH Q2H PRN PRN Reason: Shortness of Breath Aspirin (Ecotrin) 81 mg PO DAILY [facility] Last Admin: 03/16/18 10:26 Dose: 81 mg Atorvastatin Calcium (Lipitor) 40 mg PO DIN [facility] Last Admin: 03/16/18 18:05 Dose: 40 mg Benzocaine/Menthol (Cepacol Sore Throat) 1 eamon MT Q2H PRN PRN Reason: Sore Throat Benzonatate (Tessalon Perles) 100 mg PO TID [facility] Last Admin: 03/16/18 18:05 Dose: 100 mg Cinacalcet (Sensipar) 30 mg PO DAILY [facility] Last Admin: 03/16/18 10:27 Dose: 30 mg Darbepoetin Chencho (Aranesp) 40 mcg IVP QWK [facility] Last Admin: 03/15/18 12:20 Dose: 40 mcg Dextrose (Dextrose 50% Inj) 0 ml IV STAT PRN; Protocol PRN Reason: Hypoglycemia Protocol Docusate Sodium (Colace) 100 mg PO DAILY [facility] Guaifenesin (Robitussin) 100 mg PO Q4H [facility] Last Admin: 03/17/18 09:05 Dose: 100 mg Guaifenesin/Dextromethorphan (Robitussin Dm) 5 ml PO Q4H PRN PRN Reason: Cough Last Admin: 03/16/18 14:05 Dose: 5 ml Heparin Sodium (Porcine) (Heparin) 5,000 units SC Q12 [facility]; Protocol Last Admin: 03/16/18 22:41 Dose: 5,000 units Heparin Sodium (Porcine) (Heparin) 2,000 units IVP MWF [facility]; Protocol Last Admin: 03/15/18 15:45 Dose: Not Given Dextrose (Dextrose 5% In Water 1000 Ml) 1,000 mls @ 0 mls/hr IV .Q0M PRN; Protocol PRN Reason: Hypoglycemia Protocol Azithromycin (Zithromax 500mg In Ns) 500 mg in 250 mls @ 167 mls/hr IVPB DAILY [facility]; Protocol Last Admin: 03/16/18 10:27 Dose: 167 mls/hr Insulin Human Lispro (Humalog Med) 0 units SC ACHS [facility]; Protocol Last Admin: 03/17/18 08:18 Dose: Not Given Losartan Potassium (Cozaar) 25 mg PO QPM [facility] Last Admin: 03/16/18 18:05 Dose: 25 mg Nifedipine (Procardia Xl) 60 mg PO DAILY [facility] Last Admin: 03/16/18 10:27 Dose: 60 mg Oseltamivir Phosphate (Tamiflu Cap) 30 mg PO DAILY [facility]; Protocol Last Admin: 03/16/18 10:27 Dose: 30 mg Vitamin B Complex/Vit C/Folic Acid (Nephro-Jae) 1 tab PO 0800 [facility] Last Admin: 03/17/18 08:58 Dose: 1 tab - Labs Labs: 03/17/18 07:00 03/17/18 07:00 PT 12.6 SECONDS (9.4-12.5) H 03/13/18 21:17 INR 1.10 03/13/18 21:17 APTT 28.4 Seconds (25.1-36.5) 03/13/18 21:17 - Additional Findings Additional findings: - Constitutional Appears: No Acute Distress - Head Exam Head Exam: ATRAUMATIC, NORMAL INSPECTION, NORMOCEPHALIC - Eye Exam Eye Exam: EOMI, Normal appearance, PERRL. absent: Scleral icterus Pupil Exam: NORMAL ACCOMODATION - ENT Exam ENT Exam: Mucous Membranes Moist Additional comments: - Neck Exam Additional comments: supple - Respiratory Exam Respiratory Exam: Decreased Breath Sounds (b/l lung bases), Clear to Auscultation Bilateral, NORMAL BREATHING PATTERN. absent: Rales, Rhonchi, Wheezes - Cardiovascular Exam Cardiovascular Exam: REGULAR RHYTHM, +S1, +S2, Systolic Murmur - GI/Abdominal Exam GI & Abdominal Exam: Normal Bowel Sounds, Soft. absent: Distended, Firm, Guarding, Tenderness Additional comments: No suprapubic tenderness - Extremities Exam Extremities exam: Positive for: normal capillary refill, normal inspection, pedal pulses present, left AVF with thrill. Negative for: calf tenderness, pedal edema - Back Exam Back exam: absent: CVA tenderness (L), CVA tenderness (R) - Neurological Exam Neurological exam: Alert, Oriented x3 - Psychiatric Exam Psychiatric exam: Normal Affect, Normal Mood - Skin Skin Exam: Dry, Warm Assessment and Plan - Assessment and Plan (Free Text) Plan: 82 yo F with pmhx of ESRD on HD MWF, DM, GERD, HLD, HTN, and prior CVA presents with for TIA and questionable community acquired pneumonia. Family member Minerva Méndez updated on patient's current status. Minerva éMndez: . Community acquired pneumonia With possibility of concomitant viral illness Continue Azithromycin 500mg iv qd started 03/15 Continue Tamiflu 30mg (renal dose) qd started 03/14 for flu-like symptoms Continue Duonebs q6h fabien and q2h prn for shortness of breath Continue tessalon perles 100mg po tid Cepacol 1 eamon q2h prn for sore throat Robitussin 100mg po q4h fabien and robitussin DM q4h prn for cough Blood and sputum cultures negative Flu swab negative Latest CXR negative Procalcitonin elevated and climbing on repeat however patient ESRD thus there is a tendency to collect F/U legionella ID following, Dr. Vergara TIA Facial droop and upper arm weakness likely residual from prior stroke Brain MRI negative Head CT negative Echo with grade I-abnormal relaxation pattern, mild/moderate aortic regurgitation, mild valvular aortic stenosis, mitral regurgitation is mild Carotid Ultrasounds - 40-59 stenosis of proximal right ICA Continue home med lipitor 40mg po qhs Continue home med aspirin 81mg po qd Physical therapy following, recommend [facility] Neurology following, Dr. Olivarez * Clear patient of underlying infection since this can cause previous stroke deficits to manifest more Hx of DM Sugars have been well controlled ISS - low dose HgbA1c 5.1 Continue home med lipitor 40mg po qhs Continue home med aspirin 81mg po qd Hx of ESRD Nephrology following, Dr. Barrett Continue Dialysis schedule as per Nephrology MWF Sensipar 30mg po qd Aranesp 40mcg ivp qwk Nephro-jae 1 tab po qd Hx of HTN Continue Cozaar 25mg po qd and Nifedipine 60mg po qd Hx of HLD LDL elevated at 158 Continue home med lipitor 40mg po qhs Diastolic CHF Echo shows grade I abnormal relaxation patter probnp in 6000's however patient also on HD Prophylaxis Protonix Heparin sq 5000u q12h Case seen and discussed with Dr Mendoza. <Monae Mendoza - Last Filed: 03/17/18 13:00> Objective - Vital Signs/Intake and Output Vital Signs (last 24 hours): Temp Pulse Resp BP Pulse Ox 98.3 F 79 20 120/56 L 96 03/17/18 12:00 03/17/18 12:00 03/17/18 12:00 03/17/18 12:00 03/17/18 06:00 Intake and Output: 03/17/18 03/17/18 06:59 18:59 Intake Total 360 Output Total 100 Balance 260 - Medications Medications: Current Medications Albuterol/Ipratropium (Duoneb 3 Mg/0.5 Mg (3 Ml) Ud) 3 ml IH [id number] [facility] Last Admin: 03/17/18 08:07 Dose: 3 ml Albuterol/Ipratropium (Duoneb 3 Mg/0.5 Mg (3 Ml) Ud) 3 ml IH Q2H PRN PRN Reason: Shortness of Breath Aspirin (Ecotrin) 81 mg PO DAILY [facility] Last Admin: 03/17/18 11:53 Dose: 81 mg Atorvastatin Calcium (Lipitor) 40 mg PO DIN [facility] Last Admin: 03/16/18 18:05 Dose: 40 mg Azithromycin (Zithromax) 500 mg PO DAILY [facility]; Protocol Stop: 03/23/18 10:01 Benzocaine/Menthol (Cepacol Sore Throat) 1 eamon MT Q2H PRN PRN Reason: Sore Throat Benzonatate (Tessalon Perles) 100 mg PO TID [facility] Last Admin: 03/17/18 11:53 Dose: 100 mg Cinacalcet (Sensipar) 30 mg PO DAILY [facility] Last Admin: 03/17/18 11:53 Dose: 30 mg Darbepoetin Chencho (Aranesp) 40 mcg IVP QWK [facility] Last Admin: 03/15/18 12:20 Dose: 40 mcg Dextrose (Dextrose 50% Inj) 0 ml IV STAT PRN; Protocol PRN Reason: Hypoglycemia Protocol Docusate Sodium (Colace) 100 mg PO DAILY [facility] Last Admin: 03/17/18 11:53 Dose: 100 mg Guaifenesin (Robitussin) 100 mg PO Q4H [facility] Last Admin: 03/17/18 12:48 Dose: Not Given Guaifenesin/Dextromethorphan (Robitussin Dm) 5 ml PO Q4H PRN PRN Reason: Cough Last Admin: 03/17/18 12:44 Dose: 5 ml Heparin Sodium (Porcine) (Heparin) 5,000 units SC Q12 [facility]; Protocol Last Admin: 03/17/18 11:52 Dose: 5,000 units Heparin Sodium (Porcine) (Heparin) 2,000 units IVP MWF [facility]; Protocol Last Admin: 03/15/18 15:45 Dose: Not Given Dextrose (Dextrose 5% In Water 1000 Ml) 1,000 mls @ 0 mls/hr IV .Q0M PRN; Protocol PRN Reason: Hypoglycemia Protocol Insulin Human Lispro (Humalog Med) 0 units SC ACHS [facility]; Protocol Last Admin: 03/17/18 12:42 Dose: Not Given Losartan Potassium (Cozaar) 25 mg PO QPM [facility] Last Admin: 03/16/18 18:05 Dose: 25 mg Nifedipine (Procardia Xl) 60 mg PO DAILY [facility] Last Admin: 03/17/18 11:56 Dose: 60 mg Oseltamivir Phosphate (Tamiflu Cap) 30 mg PO DAILY [facility]; Protocol Last Admin: 03/17/18 11:53 Dose: 30 mg Vitamin B Complex/Vit C/Folic Acid (Nephro-Jae) 1 tab PO 0800 [facility] Last Admin: 03/17/18 08:58 Dose: 1 tab - Labs Labs: 03/17/18 07:00 03/17/18 07:00 PT 12.6 SECONDS (9.4-12.5) H 03/13/18 21:17 INR 1.10 03/13/18 21:17 APTT 28.4 Seconds (25.1-36.5) 03/13/18 21:17 Attending/Attestation - Attestation I have personally seen and examined this patient.: Yes I have fully participated in the care of the patient.: Yes I have reviewed all pertinent clinical information, including history, physical exam and plan: Yes Notes (Text): 03/17/18 12:59 attending note; Patient seen and examined with resident. Patient is alert and awake. still Complaining of cough. Getting breathing treatment. Denies any chest pain. Denies any fevers, chills. Tolerating diet. Complaining of generalized weakness. Patient is an 82 year old female with past medical history significant for ESRD dialysis Sunday/Sunday/Sunday, DM2, GERD, hyperlipidemia, hypertension, and prior CVA/TIA who presented to the emergency room with weakness in the upper extremity, difficulty speaking, and right sided facial droop. 1. SIRS. Fever resolved. Severe bronchitis with significant cough. No leukocytosis. ID Evaluation appreciated. Patient on Tamiflu for possible influenza. blood and urine culture is negative so far. on Zithromax for possible acute bronchitis. Continue nebulizer treatments. Continue robitussin as needed. Chest xray shows no active disease. 2. Right facial droop, right upper extremity weakness, dysarthria. Resolved. Neurology evaluation appreciated. Head CT showed not acute findings. Brain MRI showed no acute intracranial findings, severe chronic microvascular changes in the periventricular white matter. Carotid ultrasound showed 40-59% proximal right ICA stenosis, 20-39% proximal left ICA stenosis, antegrade flow in both vertebral arteries. 2d echo per lacing presser showed normal left ventricular wall thickness, left ventricular function is normal, left ventricular EF is within normal range, normal LV segmental wall motion, Transmitral Doppler flow pattern is grade 1-abnormal relaxation pattern, mild to moderate aortic regurgitation, mild valvular aortic stenosis, mitral regurgitation is mild. Continue ASA and Lipitor. 3. DM2. Continue insulin sliding scale. Continue to monitor accuchecks. 4. Hypertension. Continue Nifedipine and Cozaar 5. Hyperlipidemia. Continue Lipitor 6. ESRD on HD. Continue dialysis M//. Had hemodialysis on Sunday. Continue Nephrovite and Sensipar. 7. Anemia. Likely secondary to chronic disease. Continue Aranesp weekly. Continue to monitor CBC. PT evaluation appreciated. Subacute rehabilitation recommended. Will discuss with rehabilitation caseworker on Sunday for rehabilitation placement, the diagnosis, treatment plan discussed with family in detail.
[2018-03-17] MEDS: Azithromycin 500MG/NS 250ml 500 MG/250 ML BAG IVPB SCH (11:52)
[2018-03-17] MEDS: NIFEdipine 60 mg ER Tab PO SCH (11:56)
[2018-03-17] MEDS: guaiFENesin DM 100 mg-10 mg/5 ml UD PO PRN (12:44)
--- NOTE | 2018-03-17 13:26 | PN ---
DATE: 03/17/2018 SUBJECTIVE: The patient is in bed, in no acute distress, nontoxic. No fevers and chills. No events overnight. PHYSICAL EXAMINATION: VITAL SIGNS: Temperature is 99, blood pressure is 119/50, respiratory rate of 18, heart rate of 87. HEENT: Examination of HEENT is unremarkable. NECK: Supple. LUNGS: Have decreased breath sounds. HEART: Normal S1 and S2. ABDOMEN: Soft. LABORATORY EXAMINATION: Reveals a white count of 6.8, hemoglobin of 8, platelets of 312. Chemistries reveals a BUN of 39, creatinine of 6.8. Procalcitonin is 2.25. Urinalysis is noted and influenza is negative. Microbiology reveals the urine culture has multiple species. Blood cultures are no growth. Review of orders reveals the patient's urine for Legionella antigen is pending. The patient is on Tamiflu and azithromycin intravenously. The patient's EKG is 435. The patient had a chest x-ray on 03/15/2018, persistent atelectasis right lower lobe. ASSESSMENT AND PLAN: This is an 82-year-old female who was seen earlier today in 272, bed 2 with community-acquired pneumonia and end-stage renal disease on Tamiflu. We will change the Zithromax to 500 mg p.o. once daily x5 days, awaiting for urine for Legionella antigen, and the patient has now been afebrile. White count is normal. Blood cultures are negative. We will check on the sputum cultures. We will check on the urine for Legionella antigen. Complete 5 days of Tamiflu and 5 days of Zithromax. Follow up chest x-ray to resolution. Nicanor Vergara MD
[2018-03-17] MEDS: BRIMONIDINE OU SCH (21:58)
[2018-03-17] MEDS ORDERED: BIMATOPROST OU SCH (22:00)
[2018-03-18] MEDS: guaiFENesin 100 mg/5 ml Syrup UD PO SCH ×5 (00:31→16:26)
[2018-03-18] MEDS: Albuterol-Ipratrop 3 mg / 0.5 (3 ml) UD IH SCH ×4 (01:10→19:34)
[2018-03-18 06:27] VITALS: RESP 20
[2018-03-18] MEDS: Insulin Lispro (humaLOG) MEDIUM Coverage SC SCH ×3 (07:45→16:26)
--- NOTE | 2018-03-18 08:03 | CP.PCM.PN ---
<Mariajose Vásquez - Last Filed: 03/18/18 14:14> Subjective - Date & Time of Evaluation Date of Evaluation: 03/18/18 Time of Evaluation: 08:01 - Subjective Subjective: ID Progress note PGY-[address] Gilmore Pt seen in her room. On room air. Cough is still there with mild sputum. feeling weak. Denies fever, chills, cp, sob, n/v/d, dysuria Objective - Vital Signs/Intake and Output Vital Signs (last 24 hours): Temp Pulse Resp BP Pulse Ox 98.7 F 83 20 127/55 L 97 03/18/18 06:00 03/18/18 06:00 03/18/18 06:00 03/18/18 06:00 03/18/18 06:00 Intake and Output: 03/18/18 03/18/18 06:59 18:59 Intake Total 1260 Output Total 250 Balance 1010 - Medications Medications: Current Medications Albuterol/Ipratropium (Duoneb 3 Mg/0.5 Mg (3 Ml) Ud) 3 ml IH [id number] [facility] Last Admin: 03/18/18 01:10 Dose: 3 ml Albuterol/Ipratropium (Duoneb 3 Mg/0.5 Mg (3 Ml) Ud) 3 ml IH Q2H PRN PRN Reason: Shortness of Breath Aspirin (Ecotrin) 81 mg PO DAILY [facility] Last Admin: 03/17/18 11:53 Dose: 81 mg Atorvastatin Calcium (Lipitor) 40 mg PO DIN [facility] Last Admin: 03/17/18 18:12 Dose: 40 mg Azithromycin (Zithromax) 500 mg PO DAILY [facility]; Protocol Stop: 03/23/18 10:01 Benzocaine/Menthol (Cepacol Sore Throat) 1 eamon MT Q2H PRN PRN Reason: Sore Throat Benzonatate (Tessalon Perles) 100 mg PO TID [facility] Last Admin: 03/17/18 18:12 Dose: 100 mg Cinacalcet (Sensipar) 30 mg PO DAILY [facility] Last Admin: 03/17/18 11:53 Dose: 30 mg Darbepoetin Chencho (Aranesp) 40 mcg IVP QWK [facility] Last Admin: 03/15/18 12:20 Dose: 40 mcg Dextrose (Dextrose 50% Inj) 0 ml IV STAT PRN; Protocol PRN Reason: Hypoglycemia Protocol Docusate Sodium (Colace) 100 mg PO DAILY [facility] Last Admin: 03/17/18 11:53 Dose: 100 mg Guaifenesin (Robitussin) 100 mg PO Q4H [facility] Last Admin: 03/18/18 04:50 Dose: Not Given Guaifenesin/Dextromethorphan (Robitussin Dm) 5 ml PO Q4H PRN PRN Reason: Cough Last Admin: 03/17/18 12:44 Dose: 5 ml Heparin Sodium (Porcine) (Heparin) 5,000 units SC Q12 [facility]; Protocol Last Admin: 03/17/18 21:29 Dose: 5,000 units Heparin Sodium (Porcine) (Heparin) 2,000 units IVP MWF [facility]; Protocol Last Admin: 03/15/18 15:45 Dose: Not Given Home Med (Home Med) 1 unit OU HS [facility] Last Admin: 03/17/18 21:58 Dose: 1 unit Home Med (Home Med) 1 unit OU AMHS [facility] Last Admin: 03/17/18 21:58 Dose: 1 unit Dextrose (Dextrose 5% In Water 1000 Ml) 1,000 mls @ 0 mls/hr IV .Q0M PRN; Pro tocol PRN Reason: Hypoglycemia Protocol Insulin Human Lispro (Humalog Med) 0 units SC ACHS [facility]; Protocol Last Admin: 03/18/18 07:45 Dose: Not Given Losartan Potassium (Cozaar) 25 mg PO QPM [facility] Last Admin: 03/17/18 18:12 Dose: 25 mg Nifedipine (Procardia Xl) 60 mg PO DAILY [facility] Last Admin: 03/17/18 11:56 Dose: 60 mg Oseltamivir Phosphate (Tamiflu Cap) 30 mg PO DAILY [facility]; Protocol Last Admin: 03/17/18 11:53 Dose: 30 mg Vitamin B Complex/Vit C/Folic Acid (Nephro-Geno) 1 tab PO 0800 [facility] Last Admin: 03/17/18 08:58 Dose: 1 tab - Labs Labs: 03/17/18 07:00 03/17/18 07:00 PT 12.6 SECONDS (9.4-12.5) H 03/13/18 21:17 INR 1.10 03/13/18 21:17 APTT 28.4 Seconds (25.1-36.5) 03/13/18 21:17 - Constitutional Appears: No Acute Distress - Head Exam Head Exam: ATRAUMATIC, NORMAL INSPECTION, NORMOCEPHALIC - Eye Exam Eye Exam: EOMI, Normal appearance, PERRL. absent: Scleral icterus Pupil Exam: NORMAL ACCOMODATION - ENT Exam ENT Exam: Mucous Membranes Moist - Neck Exam Additional comments: supple - Respiratory Exam Respiratory Exam: Clear to Ausculation Bilateral, Rhonchi (mild b/l lung bases). absent: Rales, Wheezes - Cardiovascular Exam Cardiovascular Exam: REGULAR RHYTHM, +S1, +S2, Murmur - GI/Abdominal Exam GI & Abdominal Exam: Soft, Normal Bowel Sounds. absent: Guarding, Rigid, Tenderness Additional comments: No suprapubic tenderness - Extremities Exam Extremities Exam: absent: Calf Tenderness, Pedal Edema - Back Exam Back Exam: absent: CVA tenderness (L), CVA tenderness (R) - Neurological Exam Neurological Exam: Alert, Awake, Oriented x3 - Psychiatric Exam Psychiatric exam: Normal Affect, Normal Mood - Skin Skin Exam: Dry, Normal Color Assessment and Plan - Assessment and Plan (Free Text) Plan: Ms Solorio, 82F, with PMHx CVA, HTN/HLD, DM, ESRD (HD MWF) C/O weakness in upper extremity, difficulty speaking, R sided facial droop after her HD session. Her temperature noted to be 101.9F and HR 102 with sore throat and dry cough. A: Possible influenza due to high specificity from symptoms during flu endemic Sepsis (2/) due to systemic viral illness likely influenza - resolved Secondary bacterial bronchitis, acute; Possible community acquired pneumonia TIA vs stroke with weakness in upper extremity, difficulty speaking, R sided facial droop P: - Zithromax (day 4/5). Last dose tomorrow - Oseltamivir renal dose: 30mg x 1. Then 30mg daily x 5 days. On dialysis day, give it after dialysis. Last dose today - Droplet precaution. Maintain droplet precaution for 7 days after illness onset or until 24 hours after the resolution of fever and respiratory symptoms, whichever is longer - cepacol lozenges PRN for sore throat, tylenol prn for fever - neuro work up per primary and neural team Imaging/Lab - EKG: NSR 90. 1st degree AV block - Head CT: Periventricular white matter oschemic changes, chronic. No hemorrhage - Brain MRI: Severe chronic microvascular changes in periventricular white matter - CXR PA/LA (03/14): RLL atelectasis but no infiltrates - CXR (03/15): RLL atelectasis - Flu screen negative. - Procalcitonin: 0.55 high, 0.99 high, 2.25 - Legionella: Neg - Blood culture: neg x 4d - Sputum cx: normal oral fora - UCx: contamination - Echo: EF normal. RVSP 20. mild to mod aortic regurg s/r/d/w Dr Gilmore <Kris Gilmore S - Last Filed: 03/18/18 16:17> Objective - Vital Signs/Intake and Output Vital Signs (last 24 hours): Temp Pulse Resp BP Pulse Ox 99.1 F 90 20 126/62 89 L 03/18/18 12:00 03/18/18 12:00 03/18/18 12:00 03/18/18 12:00 03/18/18 13:25 Intake and Output: 03/18/18 03/18/18 06:59 18:59 Intake Total 1260 Output Total 250 Balance 1010 - Medications Medications: Current Medications Albuterol/Ipratropium (Duoneb 3 Mg/0.5 Mg (3 Ml) Ud) 3 ml IH [id number] [facility] Last Admin: 03/18/18 13:16 Dose: 3 ml Albuterol/Ipratropium (Duoneb 3 Mg/0.5 Mg (3 Ml) Ud) 3 ml IH Q2H PRN PRN Reason: Shortness of Breath Aspirin (Ecotrin) 81 mg PO DAILY [facility] Last Admin: 03/17/18 11:53 Dose: 81 mg Atorvastatin Calcium (Lipitor) 40 mg PO DIN [facility] Last Admin: 03/17/18 18:12 Dose: 40 mg Azithromycin (Zithromax) 500 mg PO DAILY [facility]; Protocol Stop: 03/23/18 10:01 Benzocaine/Menthol (Cepacol Sore Throat) 1 eamon MT Q2H PRN PRN Reason: Sore Throat Benzonatate (Tessalon Perles) 100 mg PO TID [facility] Last Admin: 03/18/18 09:07 Dose: 100 mg Cinacalcet (Sensipar) 30 mg PO DAILY [facility] Last Admin: 03/18/18 09:07 Dose: 30 mg Darbepoetin Chencho (Aranesp) 40 mcg IVP QWK [facility] Last Admin: 03/15/18 12:20 Dose: 40 mcg Dextrose (Dextrose 50% Inj) 0 ml IV STAT PRN; Protocol PRN Reason: Hypoglycemia Protocol Docusate Sodium (Colace) 100 mg PO DAILY [facility] Last Admin: 03/17/18 11:53 Dose: 100 mg Guaifenesin (Robitussin) 100 mg PO Q4H [facility] Last Admin: 03/18/18 14:21 Dose: Not Given Heparin Sodium (Porcine) (Heparin) 5,000 units SC Q12 [facility]; Protocol Last Admin: 03/18/18 09:06 Dose: 5,000 units Heparin Sodium (Porcine) (Heparin) 2,000 units IVP MWF [facility]; Protocol Last Admin: 03/15/18 15:45 Dose: Not Given Home Med (Home Med) 1 unit OU HS [facility] Last Admin: 03/17/18 21:58 Dose: 1 unit Home Med (Home Med) 1 unit OU AMHS [facility] Last Admin: 03/18/18 09:06 Dose: 1 unit Dextrose (Dextrose 5% In Water 1000 Ml) 1,000 mls @ 0 mls/hr IV .Q0M PRN; Protocol PRN Reason: Hypoglycemia Protocol Insulin Human Lispro (Humalog Med) 0 units SC ACHS [facility]; Protocol Last Admin: 03/18/18 12:43 Dose: Not Given Losartan Potassium (Cozaar) 25 mg PO QPM [facility] Last Admin: 03/17/18 18:12 Dose: 25 mg Nifedipine (Procardia Xl) 60 mg PO DAILY [facility] Last Admin: 03/17/18 11:56 Dose: 60 mg Oseltamivir Phosphate (Tamiflu Cap) 30 mg PO DAILY [facility]; Protocol Last Admin: 03/17/18 11:53 Dose: 30 mg Sevelamer HCl (Renagel) 1,600 mg PO TID [facility] Last Admin: 03/18/18 14:21 Dose: Not Given Vitamin B Complex/Vit C/Folic Acid (Nephro-Geno) 1 tab PO 0800 [facility] Last Admin: 03/18/18 09:07 Dose: 1 tab - Labs Labs: 03/18/18 14:14 03/17/18 07:00 PT 12.6 SECONDS (9.4-12.5) H 03/13/18 21:17 INR 1.10 03/13/18 21:17 APTT 28.4 Seconds (25.1-36.5) 03/13/18 21:17 Assessment and Plan - Assessment and Plan (Free Text) Plan: Infectious diseases Attending Physician Attestation Patient seen and examined, discussed with medical doctor nuclear medicine. I have reviewed the patient's history of present illness, past medical, social, personal and family histories, pertinent physical exam findings, course so far in this hospital admission, pertinent laboratory and imaging results. I agree with the above findings, assessment and plan. In addition, complete total 5 days of Tamiflu and Zithromax for acute bronchitis R/O systemic viral illness with Influenza.
[2018-03-18] MEDS: BRIMONIDINE OU SCH (09:06)
[2018-03-18] MEDS: Multivitamin Vitamin B Complex (Nephro-Vite) Tab PO SCH (09:07)
--- NOTE | 2018-03-18 09:07 | CP.PCM.PN ---
Subjective - Date & Time of Evaluation Date of Evaluation: 03/18/18 Time of Evaluation: 09:05 - Subjective Subjective: Nephrology Consultation Note: Assessment: Stable SIRS TIA Diabetic chronic Kidney Disease (E11.22) Hypertensive Chronic Kidney Disease (I12.0) End stage renal disease (N18.6) dependence on hemodialysis (Z99.2) (MWF) via AVF Anemia (D64.9), Hyperphosphatemia (E83.39), Secondary Hyperparathyroidism (E21.1), HTN (I12.0) Plan: HD MWF for t today PRBC as needed for anemia. on SERGE with dialysis weekly Continue with phos binders. continue sensipar 30 mg/d will start renagel for hyperphos BP control with meds as ordered. Glycemic control, Dialysis consistent diet Further work up/management as per primary team Dose meds/antibiotics for ESRD status. Avoid fleets enema/magnesium based laxatives. f/u id and neuro S: seen and examined feels tired no other complaints Physical Examination: General Appearance: Comfortable, in no acute respiratory distress, co-operative . Vitals reviewed and noted as below Head; Atraumatic, normocephalic ENT: no ulcers no thrush. Tongue is midline. Oropharynx: no rash or ulcers. EYES: Pupils are equal, round and reactive to light accommodation. . Sclera is anicteric. Neck; supple no lymphadenopathy, no thyromegaly or bruit Lungs: Normal respiratory rate/effort. Breath sounds bilateral equal and clear Heart: Normal rate. s1s2 normal. No rub or gallop. Extremities: no edema. No varicose veins Neurological: Patient is alert, awake. No focal deficit. Strength bilateral appropriate and equal Skin: Warm and dry. Normal turgor. No rash. Palpitation: Normal elasticity for age Abdomen: Abdomen is soft. Bowel sounds +. There is no abdominal tenderness, no guarding/rigidity or organomegaly Psych: normal insight and normal affect/mood MSK: no joint tenderness or swelling. Digits and nails normal, no deformity : kidney or bladder not palpable Access: AVF with thrill and bruit Labs/imaging reviewed. Past medical history, past surgical history, family history, social history, allergy reviewed and noted as below Family Hx: no hx of CKD. Non contributory Objective - Vital Signs/Intake and Output Vital Signs (last 24 hours): Temp Pulse Resp BP Pulse Ox 98.7 F 83 20 127/55 L 97 03/18/18 06:00 03/18/18 06:00 03/18/18 06:00 03/18/18 06:00 03/18/18 06:00 Intake and Output: 03/18/18 03/18/18 06:59 18:59 Intake Total 1260 Output Total 250 Balance 1010 - Medications Medications: Current Medications Albuterol/Ipratropium (Duoneb 3 Mg/0.5 Mg (3 Ml) Ud) 3 ml IH [id number] [facility] Last Admin: 03/18/18 08:29 Dose: 3 ml Albuterol/Ipratropium (Duoneb 3 Mg/0.5 Mg (3 Ml) Ud) 3 ml IH Q2H PRN PRN Reason: Shortness of Breath Aspirin (Ecotrin) 81 mg PO DAILY [facility] Last Admin: 03/17/18 11:53 Dose: 81 mg Atorvastatin Calcium (Lipitor) 40 mg PO DIN [facility] Last Admin: 03/17/18 18:12 Dose: 40 mg Azithromycin (Zithromax) 500 mg PO DAILY [facility]; Protocol Stop: 03/23/18 10:01 Benzocaine/Menthol (Cepacol Sore Throat) 1 eamon MT Q2H PRN PRN Reason: Sore Throat Benzonatate (Tessalon Perles) 100 mg PO TID [facility] Last Admin: 03/17/18 18:12 Dose: 100 mg Cinacalcet (Sensipar) 30 mg PO DAILY [facility] Last Admin: 03/17/18 11:53 Dose: 30 mg Darbepoetin Chencho (Aranesp) 40 mcg IVP QWK [facility] Last Admin: 03/15/18 12:20 Dose: 40 mcg Dextrose (Dextrose 50% Inj) 0 ml IV STAT PRN; Protocol PRN Reason: Hypoglycemia Protocol Docusate Sodium (Colace) 100 mg PO DAILY [facility] Last Admin: 03/17/18 11:53 Dose: 100 mg Guaifenesin (Robitussin) 100 mg PO Q4H [facility] Last Admin: 03/18/18 04:50 Dose: Not Given Guaifenesin/Dextromethorphan (Robitussin Dm) 5 ml PO Q4H PRN PRN Reason: Cough Last Admin: 03/17/18 12:44 Dose: 5 ml Heparin Sodium (Porcine) (Heparin) 5,000 units SC Q12 [facility]; Protocol Last Admin: 03/17/18 21:29 Dose: 5,000 units Heparin Sodium (Porcine) (Heparin) 2,000 units IVP MWF [facility]; Protocol Last Admin: 03/15/18 15:45 Dose: Not Given Home Med (Home Med) 1 unit OU HS [facility] Last Admin: 03/17/18 21:58 Dose: 1 unit Home Med (Home Med) 1 unit OU AMHS [facility] Last Admin: 03/17/18 21:58 Dose: 1 unit Dextrose (Dextrose 5% In Water 1000 Ml) 1,000 mls @ 0 mls/hr IV .Q0M PRN; Protocol PRN Reason: Hypoglycemia Protocol Insulin Human Lispro (Humalog Med) 0 units SC ACHS [facility]; Protocol Last Admin: 03/18/18 07:45 Dose: Not Given Losartan Potassium (Cozaar) 25 mg PO QPM [facility] Last Admin: 03/17/18 18:12 Dose: 25 mg Nifedipine (Procardia Xl) 60 mg PO DAILY [facility] Last Admin: 03/17/18 11:56 Dose: 60 mg Oseltamivir Phosphate (Tamiflu Cap) 30 mg PO DAILY [facility]; Protocol Last Admin: 03/17/18 11:53 Dose: 30 mg Vitamin B Complex/Vit C/Folic Acid (Nephro-Geno) 1 tab PO 0800 [facility] Last Admin: 03/17/18 08:58 Dose: 1 tab - Labs Labs: 03/17/18 07:00 03/17/18 07:00 PT 12.6 SECONDS (9.4-12.5) H 03/13/18 21:17 INR 1.10 03/13/18 21:17 APTT 28.4 Seconds (25.1-36.5) 03/13/18 21:17
--- NOTE | 2018-03-18 11:08 | RAD ---
Date of service: 03/18/2018 HISTORY: cough COMPARISON: 03/15/2018 FINDINGS: LUNGS: Platelike atelectasis at the right lung base PLEURA: No significant pleural effusion identified, no pneumothorax apparent. CARDIOVASCULAR: No aortic atherosclerotic calcification present. Moderate cardiomegaly no pulmonary vascular congestion. OSSEOUS STRUCTURES: No significant abnormalities. VISUALIZED UPPER ABDOMEN: Normal. OTHER FINDINGS: None. IMPRESSION: No active disease.
[2018-03-18 13:45] VITALS: O2SAT 89
--- NOTE | 2018-03-18 14:26 | CP.PCM.DIS ---
<rEna Maciel - Last Filed: 03/19/18 18:36> Provider - Provider Date of Admission: 03/13/18 22:02 Attending physician: Cecille Medina DO Primary care physician: Agatha Gilbert MD Consults: 03/14/18 00:37 Infectious Disease Consult Routine Comment: Consulting Provider: Nicanor Vergara Consulting Physician: Nicanor Vergara Reason for Consult: fever 03/14/18 00:59 Nephrology Consult Routine Comment: Consulting Provider: Jessica Barrett Consulting Physician: Jessica Barrett Reason for Consult: ESRD 03/14/18 03:02 Neurology Consult Routine Comment: Consulting Provider: Jenny Olivarez Consulting Physician: Jenny Olivarez Reason for Consult: TIA vs Stroke Time Spent in preparation of Discharge (in minutes): 45 Hospital Course - Lab Results Lab Results: Micro Results 03/13/18 23:09 Blood Blood Culture - Preliminary NO GROWTH AFTER 4 DAYS 03/13/18 22:40 Blood Blood Culture - Preliminary NO GROWTH AFTER 4 DAYS 03/15/18 10:50 Sputum Gram Stain - Final 03/15/18 10:50 Sputum Sputum Culture - Final NORMAL ORAL JONELLE 03/14/18 22:30 Urine Urine Culture - Final 10-50,000 CFU/ML. MULTIPLE SPECIES. PROBABLE CONTAMINATION. Most Recent Lab Values WBC 6.8 10^3/uL (4.5-11.0) 03/17/18 07:00 RBC 2.75 10^6/uL (3.5-6.1) L 03/17/18 07:00 Hgb 8.1 g/dL (12.0-16.0) L 03/17/18 07:00 Hct 26.6 % (36.0-48.0) L 03/17/18 07:00 MCV 96.7 fl (80.0-105.0) 03/17/18 07:00 MCH 29.5 pg (25.0-35.0) 03/17/18 07:00 MCHC 30.5 g/dl (31.0-37.0) L 03/17/18 07:00 RDW 16.1 % (11.5-14.5) H 03/17/18 07:00 Plt Count 312 10^3/uL (120.0-450.0) 03/17/18 07:00 MPV 9.0 fl (7.0-11.0) 03/17/18 07:00 Gran % 58.0 % (50.0-68.0) 03/17/18 07:00 Lymph % (Auto) 19.0 % (22.0-35.0) L 03/17/18 07:00 [place] % (Auto) 20.3 % (1.0-6.0) H 03/17/18 07:00 Eos % (Auto) 2.4 % (1.5-5.0) 03/17/18 07:00 Baso % (Auto) 0.3 % (0.0-3.0) 03/17/18 07:00 Gran # 3.95 (1.4-6.5) 03/17/18 07:00 Lymph # (Auto) 1.3 (1.2-3.4) 03/17/18 07:00 [place] # (Auto) 1.4 (0.1-0.6) H 03/17/18 07:00 Eos # (Auto) 0.2 (0.0-0.7) 03/17/18 07:00 Baso # (Auto) 0.02 K/mm3 (0.0-2.0) 03/17/18 07:00 Neutrophils % (Manual) 63 % (50.0-70.0) 03/16/18 07:30 Lymphocytes % (Manual) 12 % (22.0-35.0) L 03/16/18 07:30 Monocytes % (Manual) 21 % (1.0-6.0) H 03/16/18 07:30 Eosinophils % (Manual) 3 % (0.0-3.0) 03/16/18 07:30 Blast Cells 1 % 03/16/18 07:30 Toxic Granulation 2+ 03/16/18 07:30 Platelet Evaluation Normal (NORMAL) 03/16/18 07:30 Hypochromasia 2+ 03/16/18 07:30 Target Cells 1+ 03/16/18 07:30 Rouleaux 2+ 03/16/18 07:30 PT 12.6 SECONDS (9.4-12.5) H 03/13/18 21:17 INR 1.10 03/13/18 21:17 APTT 28.4 Seconds (25.1-36.5) 03/13/18 21:17 pO2 61 mm/Hg (30-55) H 03/13/18 21:17 VBG pH 7.40 (7.32-7.43) 03/13/18 21:17 VBG pCO2 58.0 (40-60) 03/13/18 21:17 VBG HCO3 35.9 mmol/l (21-28) H 03/13/18 21:17 VBG Total CO2 37.7 mmol.L (22-28) H 03/13/18 21:17 VBG O2 Sat (Calc) 94.6 % (40-65) H 03/13/18 21:17 VBG Base Excess 9.0 mmol/L (0.0-2.0) H 03/13/18 21:17 VBG Potassium 4.0 mmol/L (3.6-5.2) 03/13/18 21:17 Sodium 135.0 mmol/L (132-148) 03/13/18 21:17 Chloride 95.0 mmol/L (98-107) L 03/13/18 21:17 Glucose 80 mg/dl (65-105) 03/13/18 21:17 Lactate 0.7 mmol/L (0.7-2.1) 03/13/18 21:17 FiO2 21.0 % 03/13/18 21:17 Sodium 135 mmol/L (132-148) 03/17/18 07:00 Potassium 4.3 mmol/L (3.6-5.0) 03/17/18 07:00 Chloride 94 mmol/L (98-107) L 03/17/18 07:00 Carbon Dioxide 30 mmol/L (21-33) 03/17/18 07:00 Anion Gap 15 (10-20) 03/17/18 07:00 BUN 39 mg/dL (7-21) H 03/17/18 07:00 Creatinine 6.8 mg/dl (0.7-1.2) H 03/17/18 07:00 Est GFR ( Amer) 7 03/17/18 07:00 Est GFR (Non-Af Amer) 6 03/17/18 07:00 POC Glucose (mg/dL) 115 mg/dL (65-110) H 03/18/18 12:16 Random Glucose 94 mg/dL (70-110) 03/17/18 07:00 Hemoglobin A1c 5.1 % (4.2-6.5) 03/14/18 06:30 Calcium 8.0 mg/dL (8.4-10.5) L 03/17/18 07:00 Phosphorus 7.3 mg/dL (2.5-4.5) H 03/15/18 12:15 Total Bilirubin 0.6 mg/dL (0.2-1.3) 03/17/18 07:00 AST 54 U/L (14-36) H D 03/17/18 07:00 ALT 32 U/L (7-56) 03/17/18 07:00 Alkaline Phosphatase 111 U/L (38-126) 03/17/18 07:00 Troponin I 0.08 ng/mL 03/13/18 21:17 NT-Pro-B Natriuret Pep 6720 pg/mL (0-450) H 03/13/18 21:17 Total Protein 8.6 g/dL (5.8-8.3) H 03/17/18 07:00 Albumin 3.9 g/dL (3.0-4.8) 03/17/18 07:00 Globulin 4.7 gm/dL 03/17/18 07:00 Albumin/Globulin Ratio 0.8 (1.1-1.8) L 03/17/18 07:00 Triglycerides 90 mg/dL (35-160) 03/14/18 06:30 Cholesterol 246 mg/dL (130-200) H 03/14/18 06:30 LDL Cholesterol Direct 158 mg/dL (0-129) H 03/14/18 06:30 HDL Cholesterol 34 mg/dL (29-60) 03/14/18 06:30 Procalcitonin 2.25 NG/ML (0.19-0.49) H 03/16/18 09:45 Venous Blood Potassium 4.0 mmol/L (3.6-5.2) 03/13/18 21:17 Urine Color Yellow (YELLOW) 03/14/18 22:30 Urine Appearance Sl cloudy (CLEAR) 03/14/18 22:30 Urine pH 6.0 (4.7-8.0) 03/14/18 22:30 Ur Specific [place] 1.025 (1.005-1.035) 03/14/18 22:30 Urine Protein 100 mg/dL (<30 mg/dL) H 03/14/18 22:30 Urine Glucose (UA) Negative mg/dL (NEGATIVE) 03/14/18 22:30 Urine Ketones Negative mg/dL (NEGATIVE) 03/14/18 22:30 Urine Blood Small (NEGATIVE) H 03/14/18 22:30 Urine Nitrate Negative (NEGATIVE) 03/14/18 22:30 Urine Bilirubin Negative (NEGATIVE) 03/14/18 22:30 Urine Urobilinogen 0.2 E.U./dL (<1 E.U./dL) 03/14/18 22:30 Ur Leukocyte Esterase Negative Abigail/uL (NEGATIVE) 03/14/18 22:30 Urine RBC 0 - 2 /hpf (0-2) 03/14/18 22:30 Urine WBC 0 - 2 /hpf (0-6) 03/14/18 22:30 Ur Epithelial Cells Many /hpf (0-5) H 03/14/18 22:30 Urine Bacteria Small /hpf (NONE) 03/14/18 22:30 Hep Bs Antigen Negative (NEGATIVE) 03/15/18 12:15 Hep Bs Antibody Positive (NEGATIVE) 03/15/18 12:15 Influenza Typ A,B (EIA) Negative for flu a/b (NEGATIVE) 03/14/18 09:31 Ur L.pneumophila Ag Negative (NEGATIVE) 03/17/18 09:30 Blood Type B POSITIVE 03/14/18 06:25 Antibody Screen Positive 03/14/18 06:25 Antibody Identification Anti K 03/14/18 06:25 Antigen Identification K Antigen - NEGATIVE 03/14/18 06:25 BBK History Checked No verified bt 03/14/18 06:25 - Hospital Course Hospital Course: Upon admission: CC: Weakness in upper extremity, difficulty speaking, R sided facial droop Pt is an 82 yo F with pmhx of ESRD (HD on ), DM, GERD, HLD, HTN, prior CVA/TIA who presents for weakness in upper extremity, difficulty speaking, R sided facial droop after her HD session. Pt states that this is often the case with her after she has her dialysis sessions, but her home health aid noticed that she began having some weakness, difficulty speaking and R sided facial droop at around 6pm. Pts last known normal was not known and was therefore outside of TPA window. She states that she remembers her home health aide mentioning to her that she was having some weakness in the R upper extremity but she denies noting any weakness. Pt at this time states that she feels better than she did after dialysis and feels that she is stronger. Family was present around the pt and they also noted that the pt is improving and has returned to her baseline prior to ED visit. Pt also admits to a sore throat that started yesterday, but denies sick contacts. At this time she denies fevers, chills, headache, lightheadedness, dizziness, weakness, chest pain, SOB, palpitations, leg swelling, abd pain, n/v, c/d, numbness, tingling, or dysuria. She admits to having a dry cough and a sore throat. Neurology, Infectious disease and Nephrology were consulted to participate in her care. Due to the time frame of her symptoms the patient did not recieve tPA. CT head was negative for acute pathology, CXR revealed small area of atelectasis in the right middle lobe of the lung, no pneumonia or active disease, echocardiogram revealed no pathology related to the clinical presentation, EKG did not reveal any abnormalities, Carotid US revealed 40-59% stenosis of the HARSHIL and 20-39% stenosis of the LICA. Brain MRI revealed severe chronic mi crovascular changes in the periventricular white matter. Neurology recommendations indicated that the symptoms may have been in response to a URI the patient had had for a few days prior to presentation. Infectious disease placed the patient on Tamiflu at the time of a flu test as the patient had endorsed some body aches and had been febrile upon admission. pt had no further febrile episodes during stay. Patient was additionally seen by PT during her stay to ensure she was physically able to be discharged as she lives alone at home. Patient underwent dialysis while inpatient and was seen daily by nephrology. She had no further episodes during dialysis while inpatient. Patient continued to have a nonproductive cough and was treated with duonebs, tessalon pearls, guafenesin and cepacol lozenges. subsequent CXRs never revealed evidence of any pulmonary pathology. It was recommended by PT that the patient go to [facility] for further strengthening. Upon discharge the patient was afebrile, normotensive alert oriented and with no neuromuscular deficits. - Date & Time of H&P Date of H&P: 03/14/18 Time of H&P: 03:05 Discharge Exam - Head Exam Head Exam: ATRAUMATIC, NORMAL INSPECTION, NORMOCEPHALIC - Eye Exam Eye Exam: EOMI - ENT Exam ENT Exam: Mucous Membranes Moist - Respiratory Exam Respiratory Exam: NORMAL BREATHING PATTERN - Cardiovascular Exam Cardiovascular Exam: REGULAR RHYTHM - GI/Abdominal Exam GI & Abdominal Exam: Soft. absent: Distended, Guarding, Tenderness - Extremities Exam Extremities exam: normal capillary refill, pedal pulses present - Neurological Exam Neurological exam: Alert, CN II-XII Intact, Oriented x3 Additional comments: strength 5/5 upper and lower extremities, no facial droop, no dysarthria, no evidence of neurologic or motor deficit - Psychiatric Exam Psychiatric exam: Normal Affect, Normal Mood - Skin Skin Exam: Dry, Intact, Normal Color, Warm Discharge Plan - Discharge Medications Prescriptions: RX: Azithromycin 500 mg PO DAILY 1 Days #1 tablet Clopidogrel [Plavix] 75 mg PO DAILY 30 Days #30 tab RX: Nifedipine [Adalat cc] 60 mg PO DAILY #30 tablet.er - Follow Up Plan Condition: GUARDED Disposition: TRANSF TO SNF Instructions: Anemia Caused by Low Iron, Adult (DC), Generalized Weakness (DC), Dialysis and Diet Additional Instructions: You will be discharged to rehab so you may rebuild your strength in a controlled environment. Please follow-up with your primary care doctor, Dr. Gilbert, within 3-5 days of discharge from subacute rehab so she may monitor your course. Please follow-up with your Finance Business Manager within 7 days of discharge from subacute rehab. Please continue your normally scheduled dailysis sessions as per your chief informatics officer. Please follow up with neurologist Dr. Olivarez within 1-2 weeks of discharge from subacute rehab. Please continue the following medications when you go to rehab: 1. Duoneb q2h only as needed when short of breath 2. Aspirin 81mg 1 tablet at 10AM 3. Atorvastatin 40mg 1 tablet at bedtime 4. Azithromycin 500mg 1 tablet at 10AM for one more day last dose 03/19/2017 5. Cepacol 1 tab q2h only as needed for sore throat 6. Cinacalcet 30mg 1 tablet at 10AM 7. Aranesp 40mcg ivp once a week 8. Docusate 100mg 1 tablet at 10M 9. Robitussin 5ml every 4 hours only as needed for cough 10. Losartan 25mg 1 tablet at 10PM 11. Nifedipine ER 60mg 1 tablet at 10AM 12. Nephrovite 1 tablet at 8AM 13. Plavix 75 mg PO Daily 14. Renagel 1600 mg PO TID with meals If symptoms return, please go to your nearest emergency department. Referrals: Jessica Barrett MD [Staff Provider] - Sánchez Brown MD [Staff Provider] - Agatha Gilbert MD [Primary Care Provider] - Jenny Olivarez MD [Staff Provider] - <Cecille Medina - Last Filed: 03/20/18 06:59> Provider - Provider Date of Admission: 03/13/18 22:02 Attending physician: Cecille Medina DO Primary care physician: Agatha Gilbert MD Consults: 03/14/18 00:37 Infectious Disease Consult Routine Comment: Consulting Provider: Nicanor Vergara Consulting Physician: Nicanor Vregara Reason for Consult: fever 03/14/18 00:59 Nephrology Consult Routine Comment: Consulting Provider: Jessica Barrett Consulting Physician: Jessica Barrett Reason for Consult: ESRD 03/14/18 03:02 Neurology Consult Routine Comment: Consulting Provider: Jenny Olivarez Consulting Physician: Jenny Olivarez Reason for Consult: TIA vs Stroke Hospital Course - Lab Results Lab Results: Micro Results 03/13/18 23:09 Blood Blood Culture - Final NO GROWTH AFTER 5 DAYS 03/13/18 23:09 Blood Gram Stain - Final TEST NOT PERFORMED 03/13/18 22:40 Blood Blood Culture - Final NO GROWTH AFTER 5 DAYS 03/13/18 22:40 Blood Gram Stain - Final TEST NOT PERFORMED 03/15/18 10:50 Sputum Gram Stain - Final 03/15/18 10:50 Sputum Sputum Culture - Final NORMAL ORAL JONELLE 03/14/18 22:30 Urine Urine Culture - Final 10-50,000 CFU/ML. MULTIPLE SPECIES. PROBABLE CONTAMINATION. Most Recent Lab Values WBC 7.5 10^3/uL (4.5-11.0) 03/18/18 14:14 RBC 2.66 10^6/uL (3.5-6.1) L 03/18/18 14:14 Hgb 8.0 g/dL (12.0-16.0) L 03/18/18 14:14 Hct 25.4 % (36.0-48.0) L 03/18/18 14:14 MCV 95.5 fl (80.0-105.0) 03/18/18 14:14 MCH 30.1 pg (25.0-35.0) 03/18/18 14:14 MCHC 31.5 g/dl (31.0-37.0) 03/18/18 14:14 RDW 16.1 % (11.5-14.5) H 03/18/18 14:14 Plt Count 326 10^3/uL (120.0-450.0) 03/18/18 14:14 MPV 9.4 fl (7.0-11.0) 03/18/18 14:14 Gran % 61.3 % (50.0-68.0) 03/18/18 14:14 Lymph % (Auto) 21.8 % (22.0-35.0) L 03/18/18 14:14 [place] % (Auto) 13.7 % (1.0-6.0) H 03/18/18 14:14 Eos % (Auto) 3.1 % (1.5-5.0) 03/18/18 14:14 Baso % (Auto) 0.1 % (0.0-3.0) 03/18/18 14:14 Gran # 4.61 (1.4-6.5) 03/18/18 14:14 Lymph # (Auto) 1.6 (1.2-3.4) 03/18/18 14:14 [place] # (Auto) 1.0 (0.1-0.6) H 03/18/18 14:14 Eos # (Auto) 0.2 (0.0-0.7) 03/18/18 14:14 Baso # (Auto) 0.01 K/mm3 (0.0-2.0) 03/18/18 14:14 Neutrophils % (Manual) 63 % (50.0-70.0) 03/16/18 07:30 Lymphocytes % (Manual) 12 % (22.0-35.0) L 03/16/18 07:30 Monocytes % (Manual) 21 % (1.0-6.0) H 03/16/18 07:30 Eosinophils % (Manual) 3 % (0.0-3.0) 03/16/18 07:30 Blast Cells 1 % 03/16/18 07:30 Toxic Granulation 2+ 03/16/18 07:30 Platelet Evaluation Normal (NORMAL) 03/16/18 07:30 Hypochromasia 2+ 03/16/18 07:30 Target Cells 1+ 03/16/18 07:30 Rouleaux 2+ 03/16/18 07:30 PT 12.6 SECONDS (9.4-12.5) H 03/13/18 21:17 INR 1.10 03/13/18 21:17 APTT 28.4 Seconds (25.1-36.5) 03/13/18 21:17 pO2 61 mm/Hg (30-55) H 03/13/18 21:17 VBG pH 7.40 (7.32-7.43) 03/13/18 21:17 VBG pCO2 58.0 (40-60) 03/13/18 21:17 VBG HCO3 35.9 mmol/l (21-28) H 03/13/18 21:17 VBG Total CO2 37.7 mmol.L (22-28) H 03/13/18 21:17 VBG O2 Sat (Calc) 94.6 % (40-65) H 03/13/18 21:17 VBG Base Excess 9.0 mmol/L (0.0-2.0) H 03/13/18 21:17 VBG Potassium 4.0 mmol/L (3.6-5.2) 03/13/18 21:17 Sodium 135.0 mmol/L (132-148) 03/13/18 21:17 Chloride 95.0 mmol/L (98-107) L 03/13/18 21:17 Glucose 80 mg/dl (65-105) 03/13/18 21:17 Lactate 0.7 mmol/L (0.7-2.1) 03/13/18 21:17 FiO2 21.0 % 03/13/18 21:17 Sodium 135 mmol/L (132-148) 03/17/18 07:00 Potassium 4.3 mmol/L (3.6-5.0) 03/17/18 07:00 Chloride 94 mmol/L (98-107) L 03/17/18 07:00 Carbon Dioxide 30 mmol/L (21-33) 03/17/18 07:00 Anion Gap 15 (10-20) 03/17/18 07:00 BUN 39 mg/dL (7-21) H 03/17/18 07:00 Creatinine 6.8 mg/dl (0.7-1.2) H 03/17/18 07:00 Est GFR ( Amer) 7 03/17/18 07:00 Est GFR (Non-Af Amer) 6 03/17/18 07:00 POC Glucose (mg/dL) 116 mg/dL (65-110) H 03/18/18 18:11 Random Glucose 94 mg/dL (70-110) 03/17/18 07:00 Hemoglobin A1c 5.1 % (4.2-6.5) 03/14/18 06:30 Calcium 8.0 mg/dL (8.4-10.5) L 03/17/18 07:00 Phosphorus 6.1 mg/dL (2.5-4.5) H 03/18/18 14:14 Magnesium 2.4 mg/dL (1.7-2.2) H 03/18/18 14:14 Total Bilirubin 0.6 mg/dL (0.2-1.3) 03/17/18 07:00 AST 54 U/L (14-36) H D 03/17/18 07:00 ALT 32 U/L (7-56) 03/17/18 07:00 Alkaline Phosphatase 111 U/L (38-126) 03/17/18 07:00 Troponin I 0.08 ng/mL 03/13/18 21:17 NT-Pro-B Natriuret Pep 6720 pg/mL (0-450) H 03/13/18 21:17 Total Protein 8.6 g/dL (5.8-8.3) H 03/17/18 07:00 Albumin 3.9 g/dL (3.0-4.8) 03/17/18 07:00 Globulin 4.7 gm/dL 03/17/18 07:00 Albumin/Globulin Ratio 0.8 (1.1-1.8) L 03/17/18 07:00 Triglycerides 90 mg/dL (35-160) 03/14/18 06:30 Cholesterol 246 mg/dL (130-200) H 03/14/18 06:30 LDL Cholesterol Direct 158 mg/dL (0-129) H 03/14/18 06:30 HDL Cholesterol 34 mg/dL (29-60) 03/14/18 06:30 Procalcitonin 2.25 NG/ML (0.19-0.49) H 03/16/18 09:45 Venous Blood Potassium 4.0 mmol/L (3.6-5.2) 03/13/18 21:17 Urine Color Yellow (YELLOW) 03/14/18 22:30 Urine Appearance Sl cloudy (CLEAR) 03/14/18 22:30 Urine pH 6.0 (4.7-8.0) 03/14/18 22:30 Ur Specific [place] 1.025 (1.005-1.035) 03/14/18 22:30 Urine Protein 100 mg/dL (<30 mg/dL) H 03/14/18 22:30 Urine Glucose (UA) Negative mg/dL (NEGATIVE) 03/14/18 22:30 Urine Ketones Negative mg/dL (NEGATIVE) 03/14/18 22:30 Urine Blood Small (NEGATIVE) H 03/14/18 22:30 Urine Nitrate Negative (NEGATIVE) 03/14/18 22:30 Urine Bilirubin Negative (NEGATIVE) 03/14/18 22:30 Urine Urobilinogen 0.2 E.U./dL (<1 E.U./dL) 03/14/18 22:30 Ur Leukocyte Esterase Negative Abigail/uL (NEGATIVE) 03/14/18 22:30 Urine RBC 0 - 2 /hpf (0-2) 03/14/18 22:30 Urine WBC 0 - 2 /hpf (0-6) 03/14/18 22:30 Ur Epithelial Cells Many /hpf (0-5) H 03/14/18 22:30 Urine Bacteria Small /hpf (NONE) 03/14/18 22:30 Hep Bs Antigen Negative (NEGATIVE) 03/15/18 12:15 Hep Bs Antibody Positive (NEGATIVE) 03/15/18 12:15 Influenza Typ A,B (EIA) Negative for flu a/b (NEGATIVE) 03/14/18 09:31 Ur L.pneumophila Ag Negative (NEGATIVE) 03/17/18 09:30 Blood Type B POSITIVE 03/14/18 06:25 Antibody Screen Positive 03/14/18 06:25 Antibody Identification Anti K 03/14/18 06:25 Antigen Identification K Antigen - NEGATIVE 03/14/18 06:25 BBK History Checked No verified bt 03/14/18 06:25 Attending/Attestation - Attestation I have personally seen and examined this patient.: Yes I have fully participated in the care of the patient.: Yes I have reviewed all pertinent clinical information, including history, physical exam and plan: Yes Notes (Text): Please note this DC summary is for 03/18/18 Patient seen and examined by me with resident 10:20AM and prior to discharge on 03/18/18. Case including discharge plan discussed with resident. Agree with above with following additions/corrections. Patient is an 82 year old female with past medical history significant for ESRD dialysis Sunday/Sunday/Sunday, DM2, GERD, hyperlipidemia, hypertension, and prior CVA/TIA who presented to the emergency room with weakness in the upper extremity, difficulty speaking, and right sided facial droop. Please see H&P for full details. Patient was admitted with SIRS, TIA vs CVA, DM2, ESRD on HD, and hypertension. Patient was febrile on admission with temp of 101.4. Patient remained afebrile throughout the rest of her stay. Patient had no leukocytosis. ID was consulted. Influenza was negative. Urine for legionella was negative. Blood cultures had no growth. Sputum culture had normal oral jonelle. Patient had a cough. Patient was treated with 5 days of tamiflu and 5 days of zithromax for likely bronchitis. Chest x-ray 03/13/2018 per radiologist showed no active disease. Chest x-ray 03/14/2018 per radiologist showed no active disease. Chest x-ray on 03/15/2018 per radiologist showed no active disease. Chest x-ray 03/18/2018 per radiologist showed no active disease. Patient was also continued on nebulizer treatments. Patient was placed on Robitussin and Tessalon Perles as needed for cough. Patient's weakness in the upper extremity, difficulty speaking, and right sided facial droop also resolved. Patient was seen by neurologist. Head CT per radiologist showed not acute findings. Brain MRI per radiologist showed no acute intracranial findings, severe chronic microvascular changes in the periventricular white matter. Carotid ultrasound per radiologist showed 40-59% proximal right ICA stenosis, 20-39% proximal left ICA stenosis, antegrade flow in both vertebral arteries. 2d echo per synoptic meteorologist showed normal left ventricular wall thickness, left ventricular function is normal, left ventricular EF is within normal range, normal LV segmental wall motion, transmi tral Doppler flow pattern is grade 1-abnormal relaxation pattern, mild to moderate aortic regurgitation, mild valvular aortic stenosis, mitral regurgitation is mild. Patient was continued on ASA and Lipitor. Patient was seen by physical therapy who recommended [facility]. Hgb A1C was 5.1. Troponin was 0.08. Procalcitonin was 2.25 (likely elevated secondary to ESRD). ProBNP 6720 also likely elevated secondary to ESRD. Total cholesterol 246, LDL 158, HDL 34, Triclycerides 90. Lactate was 0.7. Fever resolved. All cultures were negative. Chest xrays showed no active disease. Patient completed 5 days of tamiflu and had one day of Zithromax left which she will complete at [facility]. Case was discussed with all consultants who cleared the patient for discharge to [facility]. Patient was discharged to [facility]. Case, all findings, and follow up instructions were dicussed with daughter Minerva at bedside. On day of discharge, patient stated she was feeling better. Still with a cough but patient feels its a little better. States she also has some abdominal pain from coughing. Patient states she also feels a little short of breath from cough. Patient also with some nasal congestion. Patient denied any chest pain or palpitations. No nausea or vomiting. No headache or dizziness. No change in vision or light headedness. No fevers or chills. Physical exam: General: Awake and alert lying in bed in no acute distress HEENT: Normocephalic, atraumatic. Extraocular muscles intact, pupils equal and reactive, no scleral icterus. Oropharynx is pink and moist. No pharyngeal erythema or exudate appreciated. Neck is supple. Cardiovascular: Regular rhythm. Normal S1 and S2. No murmurs, rubs, or gallops appreciated Pulmonary: Normal respiratory effort. Mild wheezing throughout. No rales or rhonchi appreciated. Gastrointestinal: Soft, nondistended. Nontender. Positive bowel sounds all 4 quadrants. No guarding. Musculoskeletal: Moves all extremities. No calf tenderness. No edema appreciated. Central nervous system: AAO x3, CN 2-12 grossly intact. Dermatologic: Skin warm and dry. Please see chart for full details. Follow up instructions: Patient to follow-up with primary care doctor within 3-5 days. Patient to follow up with chief informatics officer within 7 days of discharge. Patient to take medications as prescribed. All instructions explained to the patient and patient's daughter Minerva at bedside in detail. They both understand and agree to all instructions. Written instructions also given. Time spent in discharging the patient including chart review, medication reconciliation, discussion with the patient, patient's daughter Minerva at bedside, medical terminologist, consultants, and nursing staff was approximately 50 minutes.
[2018-03-18 14:27] LABS: BASO # 0.01 K/mm3 (0.0-2.0); BASO % 0.1 % (0.0-3.0); EOS # 0.2 (0.0-0.7); EOS % 3.1 % (1.5-5.0); GRAN # 4.61 (1.4-6.5); GRAN % 61.3 % (50.0-68.0); LYMPH # 1.6 (1.2-3.4); LYMPH % 21.8 % (22.0-35.0); MEAN CELL VOLUME 95.5 fl (80.0-105.0); MEAN CORPUSCULAR HEMOGLOBIN 30.1 pg (25.0-35.0); MEAN CORPUSCULAR HGB CONC 31.5 g/dl (31.0-37.0); MEAN PLATELET VOLUME 9.4 fl (7.0-11.0); MONO % 13.7 % (1.0-6.0); RBC 2.66 10^6/uL (3.5-6.1); RED CELL DISTRIBUTION WIDTH 16.1 % (11.5-14.5); WHITE BLOOD COUNT 7.5 10^3/uL (4.5-11.0)
[2018-03-18] MEDS: NIFEdipine 60 mg ER Tab PO SCH (18:15)
[2018-03-18 18:16] VITALS: BP 130/64; PULSE 80
[2018-03-18 18:42] VITALS: TEMP 98.3
== END 2018-03-18 20:24 | DRG 152 ==
LOC: ED 18:49 → ERH 22:02 → 2RSO 03-14 01:03
PROVIDERS: ADMIT Internal Medicine; ATTEND Hospitalist
PROC: 5A1D70Z Performance of Urinary Filtration, Intermittent, Less than 6 Hours Per Day (ICD-10-PCS; principal; 2018-03-15)
PROC: 5A1D70Z Performance of Urinary Filtration, Intermittent, Less than 6 Hours Per Day (ICD-10-PCS; 2018-03-18)
DX: J11.1 Influenza due to unidentified influenza virus with other respiratory manifestations (principal); N18.6 End stage renal disease; R65.10 Systemic inflammatory response syndrome (SIRS) of non-infectious origin without acute organ dysfunction; N25.81 Secondary hyperparathyroidism of renal origin; I13.2 Hypertensive heart and chronic kidney disease with heart failure and with stage 5 chronic kidney disease, or end stage renal disease; I50.30 Unspecified diastolic (congestive) heart failure; J20.9 Acute bronchitis, unspecified; E11.22 Type 2 diabetes mellitus with diabetic chronic kidney disease; K21.9 Gastro-esophageal reflux disease without esophagitis; I65.23 Occlusion and stenosis of bilateral carotid arteries; I08.0 Rheumatic disorders of both mitral and aortic valves; E78.5 Hyperlipidemia, unspecified; E83.39 Other disorders of phosphorus metabolism; D63.8 Anemia in other chronic diseases classified elsewhere; Z99.2 Dependence on renal dialysis; Z79.02 Long term (current) use of antithrombotics/antiplatelets; Z79.82 Long term (current) use of aspirin; Z79.84 Long term (current) use of oral hypoglycemic drugs; I69.392 Facial weakness following cerebral infarction; I69.322 Dysarthria following cerebral infarction; Z80.3 Family history of malignant neoplasm of breast